=== PATIENT | female | born 1940 | race Caucasian/White ===

== ENCOUNTER 2020-07-15 10:28 | Observation (INO) | payer MEDICARE, SELFPAY ==
[2020-07-15] VITALS (10 sets, daily range): BP systolic 92–129; BP diastolic 44–78; PULSE 64–80; RESP 14–25; TEMP 36.6; O2SAT 95–100; BMI 31.8
--- NOTE | ~2020-07-15 | NM_ITS ---
EXAMINATION: NM peter stress w perfusion DATE: 07/16/2020 12:12 INDICATION: Angina TECHNIQUE: Rest images were obtained following intravenous administration of 9 mCi Tc99m tetrofosmin (Myoview). The patient was infused intravenously with Lexiscan (Regadenoson). Then, 28.5 mCi Tc99m te trofosmin (Myoview) was administered intravenously, and stress images were obtained. Data was reconst ructed into short axis and horizontal and vertical long axis SPECT images. Gated SPECT images were al so obtained. COMPARISON: None. FINDINGS: There is no definite reversible or fixed perfusion abnormality to suggest ischemia or infar ction. There is normal left ventricular chamber size, wall motion and ejection fraction. Left ventr icular ejection fraction measures >70%. IMPRESSION: 1. Normal myocardial perfusion at rest and during stress. 2. Left ventricular ejection fraction measuring >70%. Reviewed, dictated and finalized at location A.
--- NOTE | ~2020-07-15 | CT_ITS ---
EXAMINATION: CTA chest PE protocol DATE: 07/15/2020 11:21 INDICATION: Chest pain, shortness of breath TECHNIQUE: Computed tomography angiography (CTA) of the chest was performed with 100 mL Omnipaque-350 intravenous contrast timed to evaluate the pulmonary arteries. Coronal maximum intensity projection 3D-reconstructions were created by the technologist. Automated exposure control and iterative reconst ruction technique were employed. Exam dose: 344.57 mGy-cm total exam DLP. COMPARISON: None. FINDINGS: There is diagnostic contrast enhancement of the pulmonary arteries and no evidence of pulmo nary embolism. No thoracic aortic aneurysm. Normal heart size. Trace pericardial fluid. No pleural effusion. No hilar or mediastinal mass lesion or lymphadenopathy. Minimal left apical pulmonary scarring. There is a small area of tree-in-bud infiltrate in the posterolateral right upper lobe. Approximately 3 mm nodular density is noted in the middle lobe (series 4 image 62). The lungs are clear of infiltrate or consolidation otherwise. There is degenerative spurring of the thoracic spine. No suspicious osteolytic or osteoblastic lesion s. IMPRESSION: No evidence of pulmonary embolism Small focal tree-in-bud infiltrate in the right upper lobe and nonspecific 3 mm nodule in the middle lobe. Consider follow-up CT imaging in 6 months. Reviewed, dictated and finalized at Location [facility]. Reviewed, dictated and finalized at location A.
--- NOTE | ~2020-07-15 | XR_ITS ---
XR chest 2V DATE: 07/15/2020 11:11 INDICATION: Mid chest pain. Shortness of breath. TECHNIQUE: PA and lateral views COMPARISON: None FINDINGS: Normal heart size. No hilar or mediastinal enlargement. No pulmonary infiltrate or consolid ation, pleural effusion or pulmonary vascular congestion or pneumothorax. Degenerative changes and scoliosis of the thoracic and lumbar spine. Hardware of the lumbar spine is fairly included in the lower most aspect of the PA chest . Osteopenia. IMPRESSION: No active cardiopulmonary disease Reviewed, dictated and finalized at location A.
--- NOTE | 2020-07-15 10:33 | ECG_ITS ---
Measurements Intervals [place] Rate: 66 P: 37 WI: 143 QRS: -17 QRSD: 104 T: 8 QT: 368 QTc: 385 Interpretive Statements SINUS RHYTHM INCOMPLETE RIGHT BUNDLE BRANCH BLOCK LOW QRS VOLTAGE IN PRECORDIAL LEADS BORDERLINE R WAVE PROGRESSION, ANTERIOR LEADS BORDERLINE T WAVE ABNORMALITY- INFERIOR LEADS BASELINE ARTIFACT- I, II, AVR BORDERLINE ECG Electronically Signed On 07-15-2020 11:17:55 CDT by Tani De Jesus D.O.
--- NOTE | 2020-07-15 10:36 | ED.SOB ---
HPI - SOB/Dyspnea General Chief Complaint: Shortness of Breath/Dyspnea Stated Complaint: CP Time Seen by Provider: 07/15/20 10:36 Source: patient Mode of arrival: ambulatory Limitations: no limitations History of Present Illness HPI Narrative: Patient is a 80-year-old female with history of hypertension who presents from her primary care physician's office where she was evaluated this morning for pre-syncopal type symptoms. Patient has been feeling lightheaded, dizzy and having chest pain with exertion. She states that her chest pain can be related to any episode of exertion even if is just walking around her house. Several times when going to the grocery store she has become diaphoretic and short of breath with near syncope. Patient denies any loss of actual consciousness or syncopal events. No current chest pain while being examined. No history of cardiac problems other than hypertension and hyperlipidemia. Patient is a previous smoker, solely during her teenage years. Patient denies recent surgery, history of DVT, pleuritic chest pain. Related Data Home Medications Medication Instructions Recorded Confirmed atorvastatin 10 mg PO DAILY 07/15/20 cetirizine 5 mg PO DAILY 07/15/20 diclofenac sodium 25 mg PO BID 07/15/20 duloxetine 20 mg PO BID 07/15/20 Allergies Allergy/AdvReac Type Severity Reaction Status Date / Time morphine Allergy Nausea and Verified 07/15/20 10:39 Vomiting Review of Systems Review of Systems: Narrative: CONSTITUTIONAL: Denies fever, chills, reports feeling sweaty with exertion EYES: Denies visual changes, redness, or discharge. ENT: Denies rhinorrhea, congestion, sore throat, or otalgia. CARDIOVASCULAR: Denies chest pain, palpitations, or edema. RESPIRATORY: Denies cough, reports dyspnea with exertion GASTROINTESTINAL: Denies abdominal pain, nausea, vomiting, or diarrhea. GENITOURINARY: Denies dysuria or hematuria. SKIN: Denies rash or itching. MUSCULOSKELETAL: Denies back pain, joint pain, or myalgia. NEUROLOGIC: Denies headache, numbness, or weakness. [facility] Past Medical History Medical History Hyperlipidemia Hypertension Social History Social History (Updated 07/15/20 @ 11:09 by Marilou Alves MD) Smoking status: Former smoker Alcohol intake: never Substance use: never Gender identity (if verbalized by the patient): Female Exam Narrative: Exam Narrative: GENERAL: Awake, alert, conversant HEAD: Normocephalic, atraumatic. EYES: PERRLA and EOMI. ENT: Nares clear, no rhinorrhea or epistaxis. Mucous membranes moist. NECK: Supple. CHEST: No respiratory distress, breathing even and non labored, no chest wall tenderness HEART: Regular rate, sinus rhythm ABDOMEN:Non distended, non tender EXTREMITIES: Normal range of motion. No edema. SKIN: Warm, dry, no rash. NEURO:No focal deficits. Alert and oriented x3 Course Vital Signs Vital signs: Vital Signs Temperature 36.6 C 07/15/20 10:34 Pulse Rate 64 07/15/20 10:34 Respiratory Rate 25 H 07/15/20 10:34 Blood Pressure 128/74 07/15/20 10:34 Pulse Oximetry 99 07/15/20 10:34 Temperature 36.6 C 07/15/20 10:34 Pulse Rate 68 07/15/20 12:16 Respiratory Rate 18 07/15/20 12:16 Blood Pressure 118/59 L 07/15/20 12:16 Pulse Oximetry 100 07/15/20 12:16 MDM - SOB/Dyspnea MDM Narrative Medical decision making narrative: Patient presented for evaluation of dyspnea with exertion, diaphoresis, intermittent chest pain from her primary care physician's office. At the time of initial assessment, ABCs are intact and vital signs are stable. Physical exam unremarkable. No chest pain or dyspnea in the ED. Patient without any lower extremity edema, no murmur found on auscultation of the heart, no focal lung findings. Laboratory results also reassuring. No elevation in troponin. Patient does not have clinical findings or symptoms of congestive
[2020-07-15 10:50] LABS: Basophils Absolute Auto 0.1 K/mm3 (0.0-0.1); Basophils Percent Auto 0.8 % (0.2-1.2); Eosinophils Absolute Auto 0.5 K/mm3 (0-0.3); Eosinophils Percent Auto 7.2 % (0-4.4); Hematocrit 39.9 % (37.0-47.0); Hemoglobin 12.5 g/dL (12.0-15.0); Immature Granulocyte Absolute 0.07 K/mm3 (0.00-0.031); Lymphocytes Absolute Auto 2.24 K/mm3 (0.9-3.2); Mean Corpuscular HGB Conc 31.3 g/dl (32-36); Mean Corpuscular Hemoglobin 28.9 pg (26-34); Mean Corpuscular Volume 92.4 fl (80-100); Monocytes Absolute Auto 0.4 K/mm3 (0.1-0.6); Monocytes Percent Auto 5.1 % (2.6-8.5); Neutrophils Percent Auto 54.9 % (45.5-73.1); Platelet Count Result 239 k/mm3 (150-375); Red Blood Count 4.32 M/mm3 (4.2-5.4); Red Cell Distribution Width 13.4 % (11.5-14.5); White Blood Count 7.2 K/mm3 (4.5-10.0)
[2020-07-15 10:59] LABS: INR 0.9; Prothrombin Time 12.3 Seconds (11.1-14.7)
[2020-07-15 11:04] LABS: Anion Gap 5 mmol/L (8-16); Blood Urea Nitrogen 24 mg/dL (7-17); Calcium 9.7 mg/dL (8.4-10.2); Carbon Dioxide 27 mmol/L (22-30); Chloride 106 mmol/L (98-107); Estimated CRCL calculation 31 ml/min; Estimated Glomerular Filt Rate 40; Glucose 97 mg/dL (65-105); Potassium 4.5 mmol/L (3.4-5.0); Sodium 138 mmol/L (137-145)
--- NOTE | 2020-07-15 11:04 | PC.NURSE ---
REPORT TO RYANNE MONET AT THIS TIME, HE HAS ASSUMED PT CARE.
[2020-07-15] MEDS: ASPIRIN 81 MG CHEWABLE TABLET 324 MG PO (11:06)
[2020-07-15 11:16] LABS: Troponin I < 0.012 ng/mL (0.000-0.034)
[2020-07-15 13:10] LABS: Cholesterol 203 mg/dL (0-200); HDL Direct 45 mg/dL; Triglycerides 200 mg/dL (<150)
[2020-07-15 13:20] LABS: LDL Cholesterol Direct 108 mg/dL
[2020-07-15 14:09] LABS: Troponin I < 0.012 ng/mL (0.000-0.034)
--- NOTE | 2020-07-15 15:27 | ADMGEN ---
This patient, Holly Mei, was admitted to [facility]. Patient/family oriented to hospital policies and general routines including ID bracelet, bed and alarms, visiting hours, pain management, procedures, bathroom and other care routines, personal items, smoking policy, room service/diet, and visiting hours. Valuables list has been completed. Information on how to activate the Rapid Response Team has been discussed. Patient/Family are encouraged to report perceived risks to care and to ask questions if they do not understand what they are told or what they should do.
--- NOTE | 2020-07-15 15:27 | PM.IMHP ---
H&P: HPI History of Present Illness Date/Time: 07/15/20 15:27 80 years old lady with history of hypertension, and history of dyslipidemia, came to the hospital because of worsening shortness breath and chest pain. She stated that she had been having worsening shortness breath, and chest pain. She stated that every time she walks she gets heaviness in the chest with radiation to the back and occasional radiation to the throat, and with that she get diaphoretic and she gets significant shortness of breath. When she has stops and rests it all improved. She was seen by primary care physician who appropriately directed her to come to the hospital. Upon arrival to the hospital she is not having any active pain at this time but she stated she is feeling weak. So far EKG is unremarkable, and cardiac enzymes are negative. No known history of documented coronary disease, but she seems to have stable angina with slightly worsening symptoms lately Chief complaint: CP Narrative: Holly Mei is a 80 year old female Review of Systems Constitutional: Constitutional: Reports fatigue Cardiovascular: Cardiovascular: Reports as per HPI Respiratory: Respiratory: Reports dyspnea and Reports dyspnea on exertion Gastrointestinal: Gastrointestinal: Denies nausea and Denies vomiting [facility] Past Medical History Medical History Hyperlipidemia Hypertension Social History Social History (Updated 07/15/20 @ 11:09 by Marilou Alves MD) Smoking status: Former smoker Alcohol intake: never Substance use: never Gender identity (if verbalized by the patient): Female Meds Home Medications and Allergies Home Medications Medication Instructions Recorded Confirmed Type atorvastatin 20 mg PO HS 07/15/20 07/15/20 History cetirizine 10 mg PO DAILY 07/15/20 07/15/20 History diclofenac sodium 100 mg PO BID 07/15/20 07/15/20 History duloxetine 30 mg PO QPM 07/15/20 07/15/20 History duloxetine 60 mg PO QAM 07/15/20 07/15/20 History lisinopril 10 mg PO DAILY 07/15/20 07/15/20 History omeprazole 20 mg PO DAILY 07/15/20 07/15/20 History Allergies Allergy/AdvReac Type Severity Reaction Status Date / Time morphine Allergy Nausea and Verified 07/15/20 10:39 Vomiting Vital Signs Vital Signs - 24 hr 07/15/20 10:34 07/15/20 10:38 07/15/20 11:01 Temperature 36.6 C Pulse Rate 64 64 Respiratory Rate 25 H 16 Blood Pressure 128/74 128/74 Pulse Oximetry 99 99 99 07/15/20 12:16 07/15/20 13:43 07/15/20 14:52 Temperature 36.6 C Pulse Rate 68 80 78 Respiratory Rate 18 18 18 Blood Pressure 118/59 L 106/78 110/74 Pulse Oximetry 100 98 99 Exam Narrative: Exam Narrative: Awake alert oriented x3 not in acute distress Neck is supple no obvious JVD, no carotid bruit Chest: Good air entry bilaterally, lungs are clear to auscultation and percussion bilaterally Cardiovascular: Regular rate and rhythm, 2/6 systolic murmur noted left sternal border Abdomen: Soft nontender bowel sounds positive Extremities: No edema has good pulses distally bilaterally H&P: Results Labs Labs: Short CBC 07/15/20 Range/Units 10:40 WBC 7.2 (4.5-10.0) K/mm3 Hgb 12.5 (12.0-15.0) g/dL Hct 39.9 (37.0-47.0) % Plt Count 239 (150-375) k/mm3 BMP 07/15/20 10:40 Sodium 138 Potassium 4.5 Chloride 106 Carbon Dioxide 27 BUN 24 H Creatinine 1.30 H Glucose 97 Calcium 9.7 Cardiac Enzymes 07/15/20 07/15/20 Range/Units 10:40 13:38 Troponin I < 0.012 < 0.012 (0.000-0.034) ng/mL Assessment and Plan Assessment and plan (1) AGUILAR (dyspnea on exertion): Code(s): R06.00 - Dyspnea, unspecified Status: Acute Assessment and Plan: with symptoms suggestive of unstable angina, agree with admitted to the hospital, follow-up cardiac enzymes and EKGs, will proceed with stress test in the morning if she had no recurrence of chest pain
--- NOTE | 2020-07-15 16:15 | ECG_ITS ---
Measurements Intervals [place] Rate: 72 P: 41 FL: 156 QRS: -12 QRSD: 104 T: 5 QT: 379 QTc: 417 Interpretive Statements SINUS RHYTHM INCOMPLETE RIGHT BUNDLE BRANCH BLOCK BORDERLINE R WAVE PROGRESSION, ANTERIOR LEADS BORDERLINE T WAVE ABNORMALITY- ANT/INF LEADS BORDERLINE ECG Electronically Signed On 07-15-2020 17:18:30 CDT by Tani De Jesus D.O.
[2020-07-15 16:50] LABS: Troponin I < 0.012 ng/mL (0.000-0.034)
[2020-07-15] MEDS: ATORVASTATIN 20 MG TABLET PO (19:19)
[2020-07-15] MEDS: DULoxetine HCL 30 MG CAPSULE.DR PO (19:19)
[2020-07-15] MEDS: DICLOFENAC SOD 75 MG TABLET.EC PO (19:58)
[2020-07-16] VITALS: BP 98/47; PULSE 67; PULSE 69; RESP 18; TEMP 36.8; O2SAT 96
--- NOTE | 2020-07-16 | ECHO_ITS ---
Patient Info Name: Holly Mei Age: 80 years : 1940 Gender: Female Ht: 62 in Wt: 174 lbs BSA: 1.89 m2 HR: 65 bpm BP: 101 / 64 mmHg Technical Quality: Fair Exam Date: 07/16/2020 7:47 AM Exam Location: [facility] Pulmonary Patient Status: Inpatient Admit Date: 07/15/2020 Staff Ordering Physician: Marilou Alves MD Babbitt Spinner: Tracy Serrano RDCS Attending Provider: Fernando Isbell MD Referring Physician: Joselyn HUITRON; Exam Type: CA echo doppler color flow Study Info Indications R07.89 - Other chest pain R06.09 - Other forms of dyspnea Complete two-dimensional, color flow and Doppler transthoracic echocardiogram is performed. Summary 1. Complete two-dimensional, color flow and Doppler transthoracic echocardiogram is performed. 2. Left ventricular chamber dimension is normal. 3. Left ventricular systolic function is normal with an estimated ejection fraction of 5560.0 %. 4. There is mild tricuspid valve regurgitation. 5. There is moderate aortic valve sclerosis. 6. There is trace aortic valve regurgitation. 7. Grade I diastolic dysfunction of the left ventricle (impaired relaxation pattern). 8. Technically difficult study with limited views. Left Ventricle Left ventricular chamber dimension is normal. Left ventricular systolic function is normal with an estimated ejection fraction of 5560.0 %. Grade I diastolic dysfunction of the left ventricle (impaired relaxation pattern). Left ventricular chamber dimension is normal. Left Atria Left atrial chamber dimension is normal. Left atrial chamber dimension is normal. Right Atria Right atrial chamber dimension is normal. Right atrial chamber dimension is normal. Aortic Valve Aortic valve is not well visualized. There is moderate aortic valve sclerosis. There is trace aortic valve regurgitation. There is moderate aortic valve sclerosis. There is trace aortic valve regurgitation. Mitral Valve Mitral valve is structurally and functionally normal to two-dimensional, color flow Doppler and Doppler interrogation. Tricuspid Valve There is mild tricuspid valve regurgitation. There is mild tricuspid valve regurgitation. Left Ventricular Outflow Tract Name Value Normal LVOT 2D LVOT Diameter 2.0 cm LVOT Doppler LVOT Peak Gradient 5 mmHg LVOT Mean Gradient 2 mmHg LVOT VTI 23 cm LVOT VTI/AV VTI Ratio 0.6 LVOT Stroke Volume 73 ml LVOT CO 5.0 l/min LVOT CI 2.6 l/min/m2 Pulmonic Valve Name Value Normal RVOT Doppler RVOT Peak Gradient 2 mmHg PV Doppler PV Peak Gradient
--- NOTE | 2020-07-16 | EST_ITS ---
Patient Info Name: Holly Mei Age: 80 years : 1940 Gender: Female Ht: 62 in Wt: 174 lbs BSA: 1.89 m2 Exam Date: 07/16/2020 10:40 AM Exam Location: [facility] Stress Patient Status: Inpatient Admit Date: 07/15/2020 Staff Ordering Physician: Fernando Isbell MD Attending Provider: Fernando Isbell MD Exercise Technologist: Tracy Serrano RDCS Exercise Physician: Jr Boyd MD Exam Type: CA stress peter w NM Study Info A regadenoson stress test was performed. Summary 1. No abnormal ST-T wave changes with lexiscan. 2. Nuclear test results to follow. Protocol: Lexiscan Stress ECG Details Stage: REST Duration (min): 0 min : 53 sec HR (bpm): 69 SBP (mmHg): 122 DBP (mmHg): 65 Stage: REST Duration (min): 9 min : 9 sec HR (bpm): 73 SBP (mmHg): 122 DBP (mmHg): 65 Stage: STAGE 1 Duration (min): 1 min : 0 sec HR (bpm): 101 SBP (mmHg): 121 DBP (mmHg): 87 Stage: RECOVERY Duration (min): 1 min : 0 sec HR (bpm): 107 SBP (mmHg): 118 DBP (mmHg): 82 Stage: RECOVERY Duration (min): 2 min : 0 sec HR (bpm): 99 SBP (mmHg): 118 DBP (mmHg): 82 Stage: RECOVERY Duration (min): 3 min : 0 sec HR (bpm): 103 SBP (mmHg): 126 DBP (mmHg): 81 Stage: RECOVERY Duration (min): 4 min : 0 sec HR (bpm): 105 SBP (mmHg): 126 DBP (mmHg): 81 Stage: RECOVERY Duration (min): 5 min : 0 sec HR (bpm): 103 SBP (mmHg): 140 DBP (mmHg): 77 Stage: RECOVERY Duration (min): 6 min : 0 sec HR (bpm): 100 SBP (mmHg): 140 DBP (mmHg): 77 Stage: RECOVERY Duration (min): 6 min : 40 sec HR (bpm): 92 SBP (mmHg): 127 DBP (mmHg): 77 Rest HR: 73 bpm Peak HR: 109 bpm Rest Sys BP: 122 mmHg Peak Sys BP: 140 mmHg Max Pred HR: 142 bpm % Max Pred HR: 77 % Target HR: 121 bpm Max RPP: 15,260 bpm*mmHg Total Time: 1 min : 0 sec Rest Pineda BP: 65 mmHg Peak Pineda BP: 77 mmHg Total Dose: 0.4 mg Report Signatures
[2020-07-16 04:00] VITALS: BP 122/53; PULSE 69; PULSE 75; RESP 14; TEMP 36.1; O2SAT 98
--- NOTE | 2020-07-16 07:48 | PC.NURSE ---
ECHO IN PROGRESS BEDSIDE.
[2020-07-16] MEDS: LORATADINE 10 MG TABLET PO (07:50)
[2020-07-16] MEDS: PANTOPRAZOLE 40 MG TABLET PO (07:50)
[2020-07-16] MEDS: ASPIRIN 81 MG CHEWABLE TABLET PO (07:51)
[2020-07-16 08:00] VITALS: BP 101/64; PULSE 72; RESP 16; TEMP 36.7; O2SAT 97
--- NOTE | 2020-07-16 09:50 | PC.NURSE ---
DOWN FOR STRESS TEST VIA WC. VOICES NO C/O.
--- NOTE | 2020-07-16 12:35 | PC.NURSE ---
RESULTS OF STRESS TEST CALLED TO DR. RODRIGEZ. PLAN DISCHARGE HOME. PT. CAN EAT.
--- NOTE | 2020-07-16 12:35 | PM.DS ---
DS: Admitting Diagnosis Admitting Diagnosis Admitting Diagnosis: chest pain,dyspnea with exertion DS: Summary Time Spent with Patient Time attestation: 80 years old WF with history of hypertension, and history of dyslipidemia, came to the hospital because of worsening shortness breath and chest pain. She stated that she had been having worsening shortness breath and chest discomfort on/off for the last 10 days. She stated that every time she walks she gets heaviness in the chest with radiation to the back and occasional radiation to the throat, and with that she get diaphoretic and she gets significant shortness of breath. She denies fever or cough. She was seen by primary care physician who directed her to come to the hospital. Pt was admitted for observation. CE were negative and there were no acute EKG changes. Pt underwent nuclear stress test which showed normal perfusion. ECHO showed normal LV systolic function. Pt aopears stable from cardiac standpoint. She will de dc with fu with her PC and in our clinic. Total time spent providing and/or coordinating discharge services: 30 min. Exam Const: General: alert and awake; No acute distress HENMT: Head: normal to inspection and atraumatic Ears: hearing grossly normal bilaterally Face and sinus: normal facial exam Eyes: General: appearance normal, both eyes and all related structures Pupils: Equal, round and reactive pupils present EOM: EOMs intact bilaterally Neck: Neck: normal visual inspection and no JVD Chest: Chest palpation & inspection: normal inspection of the chest Resp: Effort & Inspection: normal respiratory effort and no respiratory distress Auscultation: clear to auscultation bilaterally Cardio: Jugular venous distension: no JVD Rate: regular rate Heart sounds: S1 normal heart sound present, S2 normal heart sound present and no murmurs GI: Inspection: normal to inspection GI Palp: Yes Soft to palpation, No Tenderness to palpation present (GI) and Yes No hepatosplenomegaly present Auscultation: normal bowel sounds Skin: General skin exam: normal color Neuro: Cranial nerves: Yes Equal, round and reactive pupils present Extrem: General: normal to inspection and no clubbing, cyanosis or edema DS: Data Data Completed and Pending Labs on day of discharge: Labs from last 24 hours 07/15/20 07/15/20 07/15/20 16:22 13:38 10:40 Troponin I < 0.012 < 0.012 Triglycerides 200 H Cholesterol 203 H LDL Cholesterol Direct 108 HDL Direct 45 Discharge Plan Discharge Attending physician on discharge: Fernando Isbell Discharging Clinician: Jr Boyd Anticipated Discharge Date/Time: 07/16/20 12:44 Patient Disposition: Home, Self-Care Activity: as tolerated Diet: as tolerated Patient Instructions: Antibiotic Form Stand Alone Forms: General Discharge Information Follow-up/Referrals: Selvin,MD Hollis [Primary Care Provider] - 2 Weeks Fernando Isbell MD [Physician] - 4 Weeks Discharge Medications: Continued atorvastatin 20 mg Tablet 20 mg PO HS RF: 0 diclofenac sodium 100 mg Tablet Extended Release 24 Hr 100 mg PO BID RF: 0 lisinopril 10 mg Tablet 10 mg PO DAILY RF: 0 omeprazole 20 mg Capsule,Delayed Release(Dr/Ec) 20 mg PO DAILY RF: 0 duloxetine 30 mg Capsule,Delayed Release(Dr/Ec) 30 mg PO QPM RF: 0 duloxetine 60 mg Capsule,Delayed Release(Dr/Ec) 60 mg PO QAM RF: 0 cetirizine 10 mg Capsule 10 mg PO DAILY RF: 0 Date of admission: 07/15/20 12:14 Primary Care Provider: SelvinHollis Admitting Provider: Fernando Isbell Attending physician on admission: Fernando Isbell Condition: Stable
[2020-07-16 12:40] VITALS: BP 115/60; PULSE 73; PULSE 75; RESP 14; TEMP 36.9; O2SAT 97
[2020-07-16] MEDS: DULoxetine HCL 60 MG CAPSULE.DR PO (13:59)
[2020-07-16] MEDS: DICLOFENAC SOD 75 MG TABLET.EC PO (13:59)
[2020-07-16] MEDS: lisinopriL 10 MG TABLET PO (14:00)
--- NOTE | 2020-07-16 14:20 | PC.NURSE ---
HAVE REVIEWED ALL DISCHARGE INSTRUCTIONS W/ PT. QUESTIONS ANSWERED. VOICED UNDERSTAIND. IV SITE IS OUT AND DRESSED. DRESSED FOR DISCHARGE HOME. DISCHARGED HOME, OUT VIA WC TO FRIEND'S WAITING CAR WITH ALL PERSONAL BELONGINGS AND DISCHARGE PACKET. VOICES NO C/O.
== END 2020-07-16 14:20 | disposition home or self-care (01) ==
LOC: ANHED 12:48 → ANHCPC 15:37
PROVIDERS: Admitting Provider Specialist; Emergency Provider Emergency Medicine; PCP Internal Medicine; Visit Provider Specialist
DX: R07.9 Chest pain, unspecified (principal); R06.00 Dyspnea, unspecified; R06.02 Shortness of breath; R42 Dizziness and giddiness; I10 Essential (primary) hypertension; E78.5 Hyperlipidemia, unspecified; Z87.891 Personal history of nicotine dependence
CPT/HCPCS: 36415; 71046; 71275; 78452; 80048; 80061; 84484; 85025; 85610; 85730; 93005; 93017; 93306; 99285; A9270; A9502; G0378; J2785; Q9967

== ENCOUNTER 2022-01-04 14:34 | Observation (INO) | payer MEDICARE, SELFPAY ==
[2022-01-04] VITALS (42 sets, daily range): BP systolic 118–160; BP diastolic 57–97; PULSE 68–91; RESP 11–27; TEMP 36.6–36.8; O2SAT 93–100; BMI 28.2
--- NOTE | ~2022-01-04 | XR_ITS ---
EXAMINATION: XR chest 2V 01/04/2022 15:07 INDICATION: Chest pain PROCEDURE: 2 view chest COMPARISON: 07/15/2020 FINDINGS: The lungs are clear. The cardiomediastinal silhouette is within normal limits. There are no pleural effusions. There is no pneumothorax suspected. IMPRESSION: 1: NO ACUTE CARDIOPULMONARY DISEASE. Reviewed, dictated and finalized at location A. [employer]
--- NOTE | 2022-01-04 14:35 | ECG_ITS ---
Measurements Intervals [place] Rate: 91 P: 18 NE: 155 QRS: -22 QRSD: 91 T: 22 QT: 334 QTc: 412 Interpretive Statements SINUS RHYTHM LOW QRS VOLTAGE IN PRECORDIAL LEADS [QRS DEFLECTION < 1.0 mV IN CHEST LEADS] POSSIBLE ANTERIOR MYOCARDIAL INFARCTION , PROBABLY OLD [30 ms Q WAVE IN V3/V4, OR R < 0.2 mV IN V4] ABNORMAL ECG COMPARED TO ECG 07/15/2020 16:27:26 NO SIGNIFICANT CHANGES Electronically Signed On 01-04-2022 16:04:44 [employer] by Andrés Ferraro M.D.
[2022-01-04 15:03] LABS: Basophils Absolute Auto 0.1 K/mm3 (0.0-0.1); Basophils Percent Auto 0.7 % (0.2-1.2); Eosinophils Absolute Auto 0.3 K/mm3 (0-0.3); Eosinophils Percent Auto 3.6 % (0-4.4); Hematocrit 34.9 % (37.0-47.0); Hemoglobin 11.1 g/dL (12.0-15.0); Immature Granulocyte Absolute 0.02 K/mm3 (0.00-0.031); Immature Granulocyte Percent A 0.2 % (0-0.5); Lymphocytes Absolute Auto 2.43 K/mm3 (0.9-3.2); Lymphocytes Percent Auto 28.3 % (18.3-44.2); Mean Corpuscular HGB Conc 31.8 g/dl (32-36); Mean Corpuscular Hemoglobin 27.4 pg (26-34); Mean Corpuscular Volume 86.2 fl (80-100); Mean Platelet Volume 12.3 fl (7.4-10.4); Monocytes Absolute Auto 0.5 K/mm3 (0.1-0.6); Monocytes Percent Auto 5.9 % (2.6-8.5); Neutrophils Absolute Auto 5.3 K/mm3 (1.3-6.7); Neutrophils Percent Auto 61.3 % (45.5-73.1); Platelet Count Result 262 k/mm3 (150-375); Red Blood Count 4.05 M/mm3 (4.2-5.4); White Blood Count 8.6 K/mm3 (4.5-10.0)
[2022-01-04 15:14] LABS: INR 0.9; Prothrombin Time 12.2 Seconds (11.1-14.7)
[2022-01-04 15:15] LABS: Partial Thromboplastin Time 28.6 SECONDS (22.3-36.8)
[2022-01-04 15:21] LABS: Alanine Aminotransferase 21 U/L (4-35); Albumin Level 4.3 g/dL (3.5-5.1); Alkaline Phosphatase 95 U/L (38-126); Anion Gap 10 mmol/L (8-16); Aspartate Amino Transferase 34 U/L (14-36); Bilirubin,Total 0.5 mg/dL (0.2-1.3); Blood Urea Nitrogen 19 mg/dL (7-17); Calcium 10.1 mg/dL (8.4-10.2); Carbon Dioxide 22 mmol/L (22-30); Chloride 108 mmol/L (98-107); Estimated CRCL calculation 37 ml/min; Estimated Glomerular Filt Rate 53; Glucose 89 mg/dL (65-110); Lipase 128 U/L (23-300); Potassium 4.3 mmol/L (3.4-5.0); Sodium 140 mmol/L (137-145)
[2022-01-04] MEDS: ASPIRIN 81 MG CHEWABLE TABLET 324 MG PO (15:28)
[2022-01-04 15:33] LABS: Troponin I < 0.012 ng/mL (0.000-0.034)
--- NOTE | 2022-01-04 15:44 | PC.NURSE ---
Pt received 2 doses of nitro
[2022-01-04] MEDS: NITROGLYCERIN SL 0.4 MG TABLET SUBLINGUAL (16:39)
--- NOTE | 2022-01-04 18:07 | ED.CHESTPAIN ---
HPI - Chest Pain General Chief Complaint: Chest Pain Stated Complaint: REFLUX VS HEART ATTACK Time Seen by Provider: 01/04/22 15:14 History of Present Illness HPI narrative: Patient is a 81-year-old female who presents ER with chest pain and acid reflux. Ongoing over the last day. Kept her up all night and could not sleep. No bad taste in the back of her mouth. Unsure if it is worsened by lying down. Initial onset was while she was performing housework to help another individual. She reports she was vacuuming and doing other cleaning when the symptoms started. Has seen cardiology in the past and told she has a component of heart disease but she has not had any stents. No fevers or chills or sweats. Has not taken any pain medication. Patient reports when she had the chest discomfort earlier she had discomfort in her left arm. She also reports she had some mild shortness of breath and sweats. She does not have the symptoms at this time but still maintains that she is having chest pain. Related Data Home Medications Medication Instructions Recorded Confirmed atorvastatin 20 mg PO HS 07/15/20 07/15/20 cetirizine 10 mg PO DAILY 07/15/20 07/15/20 diclofenac sodium 100 mg PO BID 07/15/20 07/15/20 duloxetine 30 mg PO QPM 07/15/20 07/15/20 duloxetine 60 mg PO QAM 07/15/20 07/15/20 lisinopril 10 mg PO DAILY 07/15/20 07/15/20 omeprazole 20 mg PO DAILY 07/15/20 07/15/20 Allergies Allergy/AdvReac Type Severity Reaction Status Date / Time morphine Allergy Nausea and Verified 07/15/20 10:39 Vomiting Review of Systems Review of Systems: All systems reviewed & are unremarkable except as noted in HPI and below Constitutional: Constitutional: Denies chills, Denies fever(s) and Denies weakness ENT: Denies nasal congestion and Denies sore throat Cardiovascular: Cardiovascular: Reports chest pain, Denies rapid heart rate and Reports radiating jaw, neck or arm pain Respiratory: Respiratory: Denies cough, Denies dyspnea and Denies wheezing Gastrointestinal: Gastrointestinal: Denies abdominal pain, Reports heartburn, Reports nausea and Denies vomiting Musculoskeletal: Musculoskeletal: Denies back pain and Denies muscle cramps [facility] Past Medical History Medical History (Updated 01/04/22 @ 21:31 by Pedro Pablo Baez MD) Hyperlipidemia Hypertension Family History Family History (Updated 07/15/20 @ 15:56 by Juan Coronel RN) Sibling Acute myocardial infarction Sibling Pacemaker Social History Social History (Updated 07/15/20 @ 11:09 by Marilou Alves MD) Smoking status: Never smoker Second hand tobacco smoke exposure: Yes Alcohol intake: never Substance use: never Gender identity (if verbalized by the patient): Female Spiritual care concerns: No Exam Narrative: GENERAL: Well-appearing, well-nourished, and in no acute distress. HEAD: Normocephalic, atraumatic. EYES: PERRL and EOMI. CHEST: Clear to auscultation. No respiratory distress. HEART: Regular rate and rhythm. Normal peripheral pulses. ABDOMEN: Soft, nontender, nondistended. EXTREMITIES: Normal range of motion. No edema. SKIN: Warm, dry, no rash. NEURO: Alert and oriented x3. PSYCH: Normal mood and affect. Course Course Emergency Course: Chest pain improved with nitroglycerin but then returned. Admit for observation and serial troponin testing. Also give Pepcid. Vital Signs Vital signs: Vital Signs Temperature 97.9 F 01/04/22 14:43 Pulse Rate 90 01/04/22 14:43 Respiratory Rate 16 01/04/22 14:43 Blood Pressure 140/72 01/04/22 14:43 Pulse Oximetry 99 01/04/22 14:43 Temperature 97.9 F 01/04/22 21:30 Pulse Rate 78 01/04/22 21:30 Respiratory Rate 18 01/04/22 21:30 Blood Pressure 149/69 H 01/04/22 21:30 Pulse Oximetry 98 01/04/22 21:30 MDM - Chest Pain Lab Data Result diagrams: 01/04/22 14:58 01/04/22 14:58 Labs: Lab Results 01/04/22
[2022-01-04 18:42] LABS: Troponin I < 0.012 ng/mL (0.000-0.034)
--- NOTE | 2022-01-04 19:52 | PM.IMHP ---
H&P: HPI History of Present Illness Date/Time: 01/04/22 19:52 Chief Complaint: Chest pain. Narrative: This is a 81-year-old female with past medical history significant for dyslipidemia, depression, hypertension, GERD. Patient presents to the emergency room due to chest pain that has been present for the last 2 days or so patient raises at 5/10 in intensity is like burning pain is in the retrosternal area is non radiating to the jaw 0 shoulder or arm. Patient denies any nausea ,any vomiting,no diarrhea ,any cough, any sputum production, shortness of breath, fevers, rigors, chills, no syncope, no near syncope, no dizziness ,no palpitations, no PND, no orthopnea, no leg swelling. Preliminary workup has been essentially nonrevealing. Patient is been admitted for further evaluation, management and treatment. Review of Systems Review of Systems: Retrosternal chest pain. Constitutional: Constitutional: Denies chills, Denies fatigue, Denies fever(s), Denies malaise, Denies night sweats and Denies weakness Eyes: Eyes: Denies change in vision ENT: Denies dysphagia, Denies vertigo, Denies dizziness, Denies nasal congestion, Denies nasal discharge, Denies nasal obstruction and Denies odynophagia Cardiovascular: Cardiovascular: Reports chest pain at rest, Denies irregular heart rhythm, Denies leg edema, Denies lightheadedness, Denies radiating jaw, neck or arm pain, Denies palpitations, Denies dyspnea, Denies dyspnea on exertion, Denies orthopnea, Denies paroxysmal nocturnal dyspnea and Denies slow heart rate Respiratory: Respiratory: Denies chest congestion, Denies cough, Denies dyspnea and Denies wheezing Gastrointestinal: Gastrointestinal: Denies abdominal pain, Denies belching, Denies dyspepsia, Reports heartburn, Denies diarrhea, Reports nausea, Denies odynophagia and Denies vomiting Genitourinary: Genitourinary: Denies dysuria Musculoskeletal: Musculoskeletal: Denies myalgias Integumentary/Breasts: Skin/Breast: Denies rash Neurologic: Denies vertigo, Denies dizziness, Denies focal weakness and Denies Sensory deficit (Neuro) Psychiatric: Psychiatric: Reports no additional psychiatric complaints and Reports as per HPI Endocrine: Endocrine: Denies cold intolerance, Denies excessive sweating, Denies fatigue, Denies flushing, Denies heat intolerance, Denies polyphagia, Denies polydipsia, Denies polyuria and Denies palpitations Hematologic/Lymphatic: Hematologic/Lymphatic: Reports no additional hematologic/lymphatic complaints and Reports as per HPI Allergic/Immunologic: Allergic/Immunologic: Reports no additional allergic/immunologic complaints and Reports as per HPI PMFSH Past Medical History Medical History (Updated 01/05/22 @ 02:43 by Lala Griffith MD) Hyperlipidemia Hypertension Family History Family History (Updated 01/04/22 @ 22:11 by Cortney Cohen RN) Sibling Acute myocardial infarction Sibling No problems noted. Mother Breast cancer Bone cancer Father Alcoholic Social History Social History (Updated 07/15/20 @ 11:09 by Marilou Alves MD) Years smoked: 10 Smoking status: Former smoker Tobacco type: cigarettes Smoking end date: 01/03/75 Alcohol intake: current Drinks per week: 2 Substance use: never Gender identity (if verbalized by the patient): Female Spiritual care concerns: No Meds Home Medications and Allergies Home Medications Medication Instructions Recorded Confirmed Type atorvastatin 20 mg PO HS 07/15/20 07/15/20 History cetirizine 10 mg PO DAILY 07/15/20 07/15/20 History diclofenac sodium 100 mg PO BID 07/15/20 07/15/20 History duloxetine 30 mg PO QPM 07/15/20 07/15/20 History duloxetine 60 mg PO QAM 07/15/20 07/15/20 History lisinopril 10 mg PO DAILY 07/15/20 07/15/20 History omeprazole 20 mg PO DAILY 07/15/20 07/15/20 History Allergies Allergy/AdvReac Type Severity Reaction Status Date / Time morphine Allergy Nausea and Verified 07/15/20 10:39
[2022-01-04 21:38] LABS: Troponin I 0.013 ng/mL (0.000-0.034)
--- NOTE | 2022-01-04 21:59 | ADMGEN ---
This patient, Holly Mei, was admitted to IMU Room 205-01. Patient/family oriented to hospital policies and general routines including ID bracelet, bed and alarms, visiting hours, pain management, procedures, bathroom and other care routines, personal items, smoking policy, room service/diet, and visiting hours. Information on how to activate the Rapid Response Team has been discussed. Patient/Family are encouraged to report perceived risks to care and to ask questions if they do not understand what they are told or what they should do.
[2022-01-04] MEDS: FAMOTIDINE 20 MG/2 ML VIAL IV PUSH (22:24)
[2022-01-05] VITALS (17 sets, daily range): BP systolic 118–157; BP diastolic 56–87; PULSE 70–109; RESP 16–20; TEMP 35.6–36.7; O2SAT 93–97
--- NOTE | 2022-01-05 | ECHO_ITS ---
Patient Info Name: Holly Mei Age: 81 years : 1940 Gender: Female Ht: 61 in Wt: 148 lbs BSA: 1.72 m2 HR: 93 bpm BP: 144 / 74 mmHg Heart Rhythm: Sinus Rhythm Technical Quality: Good Exam Date: 01/05/2022 1:43 PM Exam Location: [facility] Pulmonary Patient Status: Outpatient Admit Date: 01/04/2022 Staff Ordering Physician: Sol Hernandez Remittance Clerk: Tracy Serrano RDCS Attending Provider: Sol Hernandez Referring Physician: Mary THOMSON; Exam Type: CA echo doppler color flow Study Info Indications R07.9 - Chest pain, unspecified Complete two-dimensional, color flow and Doppler transthoracic echocardiogram is performed. Summary 1. Complete two-dimensional, color flow and Doppler transthoracic echocardiogram is performed. 2. Left ventricular chamber dimension is normal. 3. Left ventricular systolic function is normal, estimated at 60-65%. 4. There is no increased left ventricular wall thickness. 5. The left ventricular diastolic function is grade I diastolic dysfunction. 6. Left atrial chamber dimension is mildly enlarged. 7. There is mild to moderate aortic valve stenosis with a peak velocity of 279 cm/s, mean gradient of 16 mmHg, and aortic valve area of 1.4 cm2. 8. There is mild to moderate aortic valve regurgitation. 9. There is mild mitral valve regurgitation. 10. There is mild tricuspid valve regurgitation. 11. Moderate pulmonary hypertension, estimated pulmonary arterial systolic pressure is 50 mmHg. Left Ventricle Left ventricular chamber dimension is normal. Left ventricular systolic function is normal, estimated at 60-65%. There is no increased left ventricular wall thickness. The left ventricular diastolic function is grade I diastolic dysfunction. Right Ventricle Right ventricular chamber dimension is normal. Right ventricular systolic function is normal. Left Atria Left atrial chamber dimension is mildly enlarged. Right Atria Right atrial chamber dimension is normal. Atrial Septum Intact interatrial septum visualized by color flow imaging. Aortic Valve The aortic valve is trileaflet. There is mild to moderate aortic valve stenosis with a peak velocity of 279 cm/s, mean gradient of 16 mmHg, and aortic valve area of 1.4 cm2. There is mild to moderate aortic valve regurgitation. There is moderate aortic valve calcification. Pulmonic Valve The pulmonic valve is normal. There is no pulmonic valve stenosis. There is trace pulmonic regurgitation. Mitral Valve The mitral valve has normal leaflets. There is no mitral valve stenosis. There is mild mitral valve regurgitation. Tricuspid Valve The tricuspid valve leaflets are normal. There is no significant tricuspid valve stenosis. There is mild tricuspid valve regurgitation. Moderate pulmonary hypertension, estimated pulmonary arterial systolic pressure is 50 mmHg. Pericardium/Pleural The pericardium appears normal. There is trivial pericardial effusion. Inferior Vena Cava Normal inferior vena cava with <50% collapse upon inspiration consistent with normal right atrial pressure, 5 mmHg. Aorta The aortic root size at the sinus of Valsalva is normal. Left Ventricular Outflow Tract Name Value Normal LVOT 2D
[2022-01-05] MEDS: FAMOTIDINE 20 MG/2 ML VIAL IV PUSH (09:49)
--- NOTE | 2022-01-05 12:03 | PCCCNOTE ---
Care Coordination. On 01/05/22, the student, {Caitlin Rawls], provided care and completed [employer] documentation on this patient. I have reviewed the student's documentation and agree with the findings.
[2022-01-05] MEDS: ACETAMINOPHEN 500 MG TABLET 1000 MG PO (13:20)
[2022-01-05] MEDS: ONDANSETRON INJ 4 MG/2 ML VIAL IV PUSH (13:22)
--- NOTE | 2022-01-05 15:56 | PM.CNCAR ---
Assessment and Plan Assessment and plan (1) Chest pain: Code(s): R07.9 - Chest pain, unspecified Status: Acute Assessment and Plan: Her chest pain is noncardiac. It is likely GI in etiology. She describes dysphagia. She has pain has been present for 1-2 days. Pain did not improve with nitro. EKG shows no acute changes and her troponins are negative. Will give her a GI cocktail and consult Dr. Palma (2) GERD (gastroesophageal reflux disease): Code(s): K21.9 - Gastro-esophageal reflux disease without esophagitis Status: Acute Assessment and Plan: As above. She is on IV Pepcid at this point (3) Hypertension: Code(s): I10 - Essential (primary) hypertension Status: Acute Assessment and Plan: Above goal (4) Hyperlipidemia: Code(s): E78.5 - Hyperlipidemia, unspecified Status: Acute Assessment and Plan: On statin (5) Dysphagia: Code(s): R13.10 - Dysphagia, unspecified Status: Acute Assessment and Plan: As detailed above (6) PVCs (premature ventricular contractions): Code(s): I49.3 - Ventricular premature depolarization Status: Acute Assessment and Plan: PVCs are likely benign. Will order a magnesium level as well as a TSH and T4 level but she has a longstanding history of palpitations need she has no significant runs of ventricular arrhythmia noted on monitor. 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 While this has nothing to do with her current symptoms, she does need outpatient follow-up and maintenance evaluation with serial echocardiograms over time. This can be performed by her primary dramatic agent History of Present Illness History of Present Illness Consult date/time: 01/05/22 15:56 Requesting physician: Sol Hernandez APN-C Consult reason: chest pain Reason For Visit: Chest Pain Narrative: Reason for consultation: Chest pain, ventricular ectopy Date of service 01/05/2022 Requesting provider: Sol Hernandez History: Patient is a 81-year-old female who does follow with [facility], Dr. Berrios. She was admitted to this hospital back in 2019 and had a stress test at that time which showed no ischemia. She started developed chest pain about 2 days ago. She states the chest pain kept her up all night. She did take a Pepcid without any benefit. She then tried to eat some food the next morning including a eggs which cause the pain to be significantly worse and severe. She then had some electrical type shocks the radiate to the left side. It hurt to swallow. She was not short of breath but did feel weak. She has had some lower extremity swelling which is not new or different. She occasionally has palpitations which are also not new or different. She denies any paroxysmal nocturnal dyspnea, orthopnea, syncope or significant presyncope. She came to hospital for further workup evaluation because of the persistent chest pain. EKG shows no acute ST or T-wave abnormalities. Troponins are negative. She still has a 2/10 discomfort at this point. Review of Systems Review of Systems: All systems reviewed & are unremarkable except as noted in HPI and below Constitutional: Constitutional: Reports weakness Eyes: Eyes: Denies blurry vision ENT: Reports Normal hearing present Cardiovascular: Cardiovascular: Reports chest pain Respiratory: Respiratory: Denies dyspnea Gastrointestinal: Gastrointestinal: Reports abdominal pain Genitourinary: Genitourinary: Denies flank pain Musculoskeletal: Musculoskeletal: Denies neck pain Integumentary/Breasts: Skin/Breast: Denies dry skin Neurologic: Denies headache(s) Psychiatric: Psychiatric: Denies anxiety Endocrine: Endo
--- NOTE | 2022-01-05 17:06 | PM.IMPN ---
Progress Note: A&P Additional Plan Assessment and plan (1) Chest pain: Code(s): R07.9 - Chest pain, unspecified Status: Acute Assessment and Plan: - Serial troponins negative x4 - Low suspicion for ACS. - Normal Lexiscan stress test 2019 - ECHO with normal EF of 60-65% and normal LVSF. - Pt. with intermittent Trigeminy, Cardiology consulted and have no further recommendations except to consult GI. (2) Hypertension: Code(s): I10 - Essential (primary) hypertension Status: Acute Assessment and Plan: - Resume home meds - Continue to monitor (3) Hyperlipidemia: Code(s): E78.5 - Hyperlipidemia, unspecified Status: Acute Assessment and Plan: - Resume home meds (4) GERD (gastroesophageal reflux disease): Code(s): K21.9 - Gastro-esophageal reflux disease without esophagitis Status: Acute Assessment and Plan: - Pepcid was discontinued and PPI, Protonix 40 mg IVP BID was ordered to maximize the PPI Effect. - Gastroenterology consult placed and appreciate their management recommendations. Time Spent With Patient Time with patient: 15 - 25 minutes Subjective Date/time seen: 01/05/22 1330 This pt. was examined at the bedside in interval assessment. She continues to endorse CP in the center of her chest. Her troponin's were negative x4, and she had a normal Lexiscan stress test in 2019, making the overall concern for possible ACS low. ECHO today showed a normal LVSF of 60-65%, no increased Left ventricular wall thickness, and she has a left ventricular diastolic function of grade 1 dysfunction. There is mild to moderate AVR, mild MVR, mild TVR and moderate pulmonary HTN. I was advised by nursing staff that she did have intermittent Trigeminy. Cardiology was consulted secondary to this and they believe symptoms are all due to GERD, and Dr. Palma is consulted. Pt. continues to complain of burning in her chest. No dyspnea, N/V. Review of Systems Review of Systems: A 12 point ROS was performed and is otherwise negative with exception of what is noted in HPI. All systems reviewed & are unremarkable except as noted in HPI and below Exam Const: General: comfortable and no acute distress HENMT: Mouth: Yes moist mucous membranes Eyes: Sclera: sclerae normal Neck: Neck: supple and no JVD Resp: Effort & Inspection: normal respiratory effort Auscultation: clear to auscultation bilaterally Cardio: Rate: regular rate Rhythm: regular rhythm GI: GI Palp: Yes Soft to palpation, No Tenderness to palpation present (GI) and No Guarding due to palpation present (GI) Auscultation: normal bowel sounds Skin: General skin exam: normal color and no rashes or lesions noted Neuro: General: gait normal Speech: normal speech Extrem: General: normal to inspection Right upper extremity: normal to inspection Left upper extremity: normal to inspection Right lower extremity: normal to inspection Left lower extremity: normal to inspection Psych: Mental Status: mental status grossly normal Affect: normal affect Thought content: Yes Normal thought content present Objective Data Vital Signs Vital Signs: Vital Signs - 24 hr 01/04/22 17:15 01/04/22 17:16 01/04/22 17:30 Temperature Pulse Rate 76 82 76 Respiratory Rate 17 27 H 14 Blood Pressure 133/64 Pulse Oximetry 99 97 99 01/04/22 17:31 01/04/22 17:45 01/04/22 17:46 Temperature Pulse Rate 78 78 80 Respiratory Rate 14 19 14 Blood Pressure 120/76 138/97 H Pulse Oximetry 100 99 99 01/04/22 18:00 01/04/22 18:15 01/04/22 18:19 Temperature Pulse Rate 82 82 74 Respiratory Rate 14 17 12 Blood Pressure 134/82 Pulse Oximetry 99 99 99 01/04/22 18:30 01/04/22 18:32 01/04/22 18:51 Temperature Pulse Rate 78 81 81 Respiratory Rate 11 L 16 16 Blood Pressure 152/97 H Pulse Oximetry 94 100 01/04/22 19:00 01/04/22 19:16 01/04/22 19:30 Temperature Pulse Rate 84 80 Respiratory Rate 27
[2022-01-05] MEDS: BELLADONNA ALK/PHENOB ELIX 10 ML, MAG HYDROX/ALUMINUM HYD/SIMETH 30 ML, LIDOCAINE HCL 2... PO (18:03)
[2022-01-05] MEDS: PANTOPRAZOLE SODIUM IV 40 MG VIAL IV PUSH (20:19)
[2022-01-05 21:26] LABS: Magnesium 2.3 mg/dL (1.6-2.3)
[2022-01-05 21:51] LABS: Thyroid Stimulating Hormone 0.879 uIU/mL (0.465-4.680)
[2022-01-05] MEDS: MELATONIN 5 MG TABLET PO (23:05)
[2022-01-06] VITALS (12 sets, daily range): BP systolic 132–153; BP diastolic 59–73; PULSE 61–98; RESP 14–20; TEMP 36.1–36.6; O2SAT 93–100
--- NOTE | 2022-01-06 07:20 | WPDGICN ---
Assessment and Plan Assessment and plan (1) Chest pain: Code(s): R07.9 - Chest pain, unspecified Status: Acute Assessment and Plan: Patient has chest pain that is very consistent with possible acid reflux disease. Because of poor response to proton pump inhibitor such as omeprazole will plan to proceed with EGD. It is likely she may benefit from increasing her dose of omeprazole to40mg p.o. daily. Anti-reflux measures are encouraged. Supplementing medications with antacid such as Mylanta may also be feasible further recommendations will be given after endoscopy. (2) GERD (gastroesophageal reflux disease): Code(s): K21.9 - Gastro-esophageal reflux disease without esophagitis Status: Acute Assessment and Plan: Patient with an established diagnosis of GE reflux she has been on omeprazole for some time. Currently this is failing to control her symptoms. Plan is for EGD to assess more thoroughly today. Likely will need adjustment of her dose. GI Consult Note Consult date/time: 01/06/22 07:20 HPI: Holly Mei is a 81 year old female I am asked to see because of chest pain. Patient known to have acid reflux in the past. Has been on omeprazole for several years. She states that she began to get substernal chest pain over the last several weeks. It intensified this week. She describes as burning. It is better when she sits upright it is worse when she eats. She has undergone cardiac evaluation it is our Cardiology yesterday feeling is this is not cardiac chest pain. Patient denies any dysphagia. She has had no bleeding or weight loss. She is quite anxious. She reports in the past she has also had diverticulitis. Her family history is noncontributory. Review of Systems Review of Systems: All systems reviewed & are unremarkable except as noted in HPI and below [facility] Past Medical History Medical History (Updated 01/05/22 @ 16:04 by Andrés Ferraro MD) Hyperlipidemia Hypertension Family History Family History Sibling Acute myocardial infarction Sibling No problems noted. Mother Breast cancer Bone cancer Father Alcoholic Social History Social History Years smoked: 10 Smoking status: Former smoker Tobacco type: cigarettes Smoking end date: 01/03/75 Alcohol intake: current Drinks per week: 2 Substance use: never Gender identity (if verbalized by the patient): Female Spiritual care concerns: No Meds Home Medications and Allergies Home Medications Medication Instructions Recorded Confirmed Type cetirizine 10 mg PO DAILY 07/15/20 01/05/22 History diclofenac sodium 100 mg PO BID 07/15/20 01/05/22 History duloxetine 30 mg PO QPM 07/15/20 01/05/22 History duloxetine 60 mg PO QAM 07/15/20 01/05/22 History lisinopril 5 mg PO DAILY 07/15/20 01/05/22 History omeprazole 20 mg PO DAILY 07/15/20 01/05/22 History aspirin 81 mg PO DAILY 01/05/22 01/05/22 History rosuvastatin 20 mg PO DAILY 01/05/22 01/05/22 History Allergies Allergy/AdvReac Type Severity Reaction Status Date / Time morphine Allergy Nausea and Verified 07/15/20 10:39 Vomiting Vital Signs Vital Signs - 24 hr 01/05/22 08:00 01/05/22 08:08 01/05/22 10:00 Temperature 96.1 F L Pulse Rate 109 H 74 Respiratory Rate 18 Blood Pressure 144/74 H Pulse Oximetry 96 95 01/05/22 11:03 01/05/22 12:00 01/05/22 14:00 Temperature 96.8 F L Pulse Rate 72 81 85 Respiratory Rate 18 Blood Pressure 146/78 H Pulse Oximetry 97 01/05/22 16:00 01/05/22 18:00 01/05/22 19:53 Temperature 97.6 F 98.0 F Pulse Rate 75 84 78 Respiratory Rate 18 20 Blood Pressure 118/56 L 133/62 Pulse Oximetry 96 95 01/05/22 20:00 01/05/22 22:00 01/05/22 23:59 Temperature 98.1 F Pulse Rate 76 70 76 Respiratory Rate 20 20 Blood Pressure 136/56 L Pulse
--- NOTE | 2022-01-06 07:43 | PC.NURSE ---
Patient transported by RYANNE Chambelrain with GI to GI lab at 0738 by wheelchair.
[2022-01-06] MEDS: LACTATED RINGERS 1,000 ML 150 ML IV CONT (07:45)
--- NOTE | 2022-01-06 07:48 | P.PNAN_ITS ---
Anes - Initial Pre Proc Eval Procedure: Operation Date: 01/06/22 14:00 Proposed Procedures p Esophagogastroduodenoscopy - Adama Palma MD Date/Time: 01/06/22 07:48 Surgeon: GAVIN Mohamud Pre Op Diagnosis: Chest Pain Patient Data Age: 81 Gender: F Height: 1.55 m Weight: 68 kg Last Vital Signs Temp 36.1 C L 01/06/22 04:00 Pulse 63 01/06/22 06:00 Resp 20 01/06/22 04:00 BP 153/68 H 01/06/22 04:00 Pulse Ox 97 01/06/22 04:00 Allergies Allergy/AdvReac Type Severity Reaction Status Date / Time morphine Allergy Nausea and Verified 01/06/22 07:51 Vomiting Home Medications Medication Instructions Recorded Confirmed Type cetirizine 10 mg PO DAILY 07/15/20 01/05/22 History diclofenac sodium 100 mg PO BID 07/15/20 01/05/22 History duloxetine 30 mg PO QPM 07/15/20 01/05/22 History duloxetine 60 mg PO QAM 07/15/20 01/05/22 History lisinopril 5 mg PO DAILY 07/15/20 01/05/22 History omeprazole 20 mg PO DAILY 07/15/20 01/05/22 History aspirin 81 mg PO DAILY 01/05/22 01/05/22 History rosuvastatin 20 mg PO DAILY 01/05/22 01/05/22 History Laboratory Tests 01/05/22 17:59 Magnesium 2.3 mg/dL mg/dL (1.6-2.3) TSH 0.879 uIU/mL uIU/mL (0.465-4.680) Thyroxine (T4) 12.20 ug/dL H ug/dL (5.53-11.0) Patient hx anesthesia problems: none Family hx anesthesia problems: none Results Review: All pre-operative results and documents have been reviewed as part of the pre-operative evaluation. [facility] Past Medical History Medical History Hyperlipidemia Hypertension Surgical History Surgical History (Updated 01/06/22 @ 07:51 by Kamaljit Santos MD) H/O laparoscopy History of total knee arthroplasty Family History Family History Sibling Acute myocardial infarction Sibling No problems noted. Mother Breast cancer Bone cancer Father Alcoholic Social History Social History Years smoked: 10 Smoking status: Former smoker Tobacco type: cigarettes Smoking end date: 01/03/75 Alcohol intake: current Drinks per week: 2 Substance use: never Gender identity (if verbalized by the patient): Female Spiritual care concerns: No Anes - Eval Final PreProcedure Day of Procedure 01/06/22 07:48 Patient weight: overweight Heart: regular rate and rhythm Lungs: clear to auscultation Airway: Mallampati scale class II and other (upper plate, lower partial) Neurological: alert and oriented Last oral intake: >/= 8 hours ASA classification: II Emergent: no Anesthetic plan: proceed Anesthesia type and monitoring: general GIVS and standard monitoring Results Review: All pre-operative results and documents have been reviewed as part of the pre-operative evaluation. Informed Consent: The patient's anesthetic plan and its attendant risks and benefits were discussed with the patient/family/POA. Questions were solicited and answers provided to the satisfaction of the patient/family/POA.
--- NOTE | 2022-01-06 09:35 | PC.NURSE ---
Report received by RYANNE Baker with GI lab at 0925.
--- NOTE | 2022-01-06 09:39 | PC.NURSE ---
Patient back to room at 0937 from GI lab. This nurse to resume patient care.
--- NOTE | 2022-01-06 10:48 | PM.DS ---
DS: Admitting Diagnosis Discharge Date 01/06/2022 Admitting Diagnosis Chest Pain, HTN, HLD, GERD DS: Discharge Diagnosis Discharge Diagnosis (1) Chest pain: Qualifiers: Chest pain type: unspecified Qualified Code(s): R07.9 - Chest pain, unspecified Code(s): R07.9 - Chest pain, unspecified Status: Acute Assessment and Plan: - Troponin's negative. - EKG's stable. - Cardiology consulted and have no concern of ACS. - Lexiscan in 2019 was negative. - ECHO showed normal EF of 60-65% and normal LVSF. (2) Hypertension: Qualifiers: Hypertension type: unspecified Qualified Code(s): I10 - Essential (primary) hypertension Code(s): I10 - Essential (primary) hypertension Status: Acute Assessment and Plan: - Stable during this admission. - Continue home medications. (3) Hyperlipidemia: Qualifiers: Hyperlipidemia type: unspecified Qualified Code(s): E78.5 - Hyperlipidemia, unspecified Code(s): E78.5 - Hyperlipidemia, unspecified Status: Acute Assessment and Plan: - Home medications were continued. (4) GERD (gastroesophageal reflux disease): Qualifiers: Esophagitis presence: without esophagitis Qualified Code(s): K21.9 - Gastro-esophageal reflux disease without esophagitis Code(s): K21.9 - Gastro-esophageal reflux disease without esophagitis Status: Acute Assessment and Plan: - PPI treatment was started and maximized with Protonix 40 mg BID. - GI was consulted and pt. had EGD this AM. Dx: GERD. - GI recommends Omeprazole 40 mg po daily, bland diet and OK to discharge per GI. DS: Summary Hospital Course Hospital Course: This 81 year old female patient with significant PMH of HTN, HLD, depression and GERD, presented to the ER on 01/04/22, with complaints of feeling weak and having two days of a middle, burning CP that is intermittent without any typical accompanying symptoms of ACS such as Dyspnea, N/V, diaphoresis, and no infectious causes such as cough, sputum production, fever, rigors, chills, syncope, palpitations or dizziness. She was admitted to the hospital for rule out ACS and also for further evaluation. Pt. had negative troponin's, benign EKG's, normal ECHO and also a reviewed Lexiscan stress test from 2019 was reviewed and it was low risk. Cardiology was consulted because pt. did have an intermittent trigeminy pattern that has since resolved. They had no recommendations other than to consult GI who saw her today. Pt. had an EGD today that showed an otherwise benign appearance. Pt. is being treated for GERD. She states she still has the sensation in her chest, and says she cannot eat, but at the same time, she says she Must go home today, as she has some kind of event tomorrow. Her VSS, and her workups have been benign as have her labs, so discharge today is reasonable. The pt. was educated on the fact that we are increasing her Omeprazole dosage for home. In addition, she is educated on a bland diet and given a list of appropriate foods that she could eat. She will be referred to GI ouptatient upon discharge. Time Spent with Patient Time attestation: Total time spent providing and/or coordinating discharge services: 35 minutes Exam Narrative: Const: General: comfortable and no acute distress HENMT: Mouth: Yes moist mucous membranes Eyes: Sclera: sclerae normal Neck: Neck: supple and no JVD Resp: Effort & Inspection: normal respiratory effort Auscultation: clear to auscultation bilaterally Cardio: Rate: regular rate Rhythm: regular rhythm GI: GI Palp: Yes Soft to palpation, No Tenderness to palpation present (GI) and No Guarding due to palpation present (GI) Auscultation: normal bowel sounds Skin: General skin exam: normal color and no rashes or lesions noted Neuro: General: gait normal Speech: normal speech Extrem: General: normal to inspection Right upper extremity: normal to inspe
[2022-01-06] MEDS: PANTOPRAZOLE 40 MG TABLET PO (11:35)
[2022-01-06] MEDS: FLUTICASONE PROPIONATE 0.05% NA SPR 16 GM BTL (*BKC) 2 SPRAY NASAL (11:35)
== END 2022-01-06 14:42 | disposition home or self-care (01) ==
LOC: ANHED 15:57 → ANHIMU 20:08
PROVIDERS: Emergency Medicine; Internal Medicine Cardiovascular Disease; Internal Medicine Gastroenterology; Admitting Provider Family Medicine; Emergency Provider Emergency Medicine; PCP Internal Medicine; Visit Provider Nurse Practitioner Adult Health
PROC: 0DJ08ZZ Inspection of Upper Intestinal Tract, Via Natural or Artificial Opening Endoscopic (ICD-10-PCS; CPT 43235; principal; 2022-01-06 14:00)
DX: K21.9 Gastro-esophageal reflux disease without esophagitis (principal); R07.9 Chest pain, unspecified; R13.10 Dysphagia, unspecified; I10 Essential (primary) hypertension; I49.3 Ventricular premature depolarization; I35.1 Nonrheumatic aortic (valve) insufficiency; I35.0 Nonrheumatic aortic (valve) stenosis; E78.5 Hyperlipidemia, unspecified; F32.A Depression, unspecified; Z87.891 Personal history of nicotine dependence
CPT/HCPCS: 43239; 36415; 71046; 80053; 83690; 83735; 84436; 84443; 84484; 85025; 85610; 85730; 87081; 93005; 93306; 96374; 96375; 96376; 99285; A9270; C9113; G0378; J2405; J2704; J7120

== ENCOUNTER 2024-01-24 15:10 | Emergency (ER) | payer MEDICARE, SELFPAY ==
--- NOTE | ~2024-01-24 | CT_ITS ---
EXAMINATION: CT abdomen pelvis wo con DATE: 01/24/2024 15:47 INDICATION: Left lower quadrant pain TECHNIQUE: Computed tomography (CT) of the abdomen and pelvis was performed without intravenous contr ast. The dose-length product (DLP) was 496.79 mGy-cm. Automated exposure control and iterative recons truction technique were employed. COMPARISON: 07/15/2020 FINDINGS: Minimal dependent atelectasis is present in the lung bases. The heart size is normal. There is a 4 mm nodule of the right middle lobe, likely old granulomatous disease. There is a chronic area of low-attenuation in the left hepatic lobe which appears to relate to the left portal vein. The mame er is otherwise unremarkable. The spleen, pancreas, and adrenal glands are normal. A stone is present in the nondistended gallbladder. Cysts of the kidneys measure up to 3.9 cm on the left. No pathologi shaunna enlarged abdominal or pelvic lymph nodes are identified. No free intraperitoneal gas or evidenc e of bowel obstruction. There are changes of posterior fusion at L4-5. There is severe lumbar spondyl osis. IMPRESSION: 1. No CT correlate for the patient's symptoms. 2. Chronic area of low-attenuation in the left hepatic lobe, possibly related to the left portal vein . Follow-up with nonemergent CT or MRI with contrast is recommended. Reviewed, dictated and finalized at location F. IMPRESSION: 1. No CT correlate for the patient's symptoms. 2. Chronic area of low-attenuation in the left hepatic lobe, possibly related t o the left portal vein. Follow-up with nonemergent CT or MRI with contrast is r ecommended.
--- NOTE | ~2024-01-24 | CT_ITS ---
EXAMINATION: CT brain wo con INDICATION: Facial paresthesia COMPARISON: None TECHNIQUE: Standard unenhanced head CT. The dose-length product (DLP) was 681.00 mGy-cm. The mA was a djusted according to patient size. Iterative reconstruction technique was employed. FINDINGS: No acute intraparenchymal hemorrhage. No evidence of mass lesion. No evidence of acute infa rction. There is mild periventricular and subcortical hypodensity probably related to small vessel is chemic disease. There is mild prominence of the sulci and ventricles related to cerebral atrophy. Int racranial calcified cerebral atherosclerosis is noted. No extra-axial collections. No mass effect or midline shift. The orbits and soft tissues are unremarkable. There is mild mucosal thickening of the paranasal sinuses. IMPRESSION: 1. No acute intracranial abnormality. 2. Age related findings. Reviewed, dictated and finalized at location F.
[2024-01-24 15:18] VITALS: BP 99/66; PULSE 99; RESP 20; TEMP 36.9; O2SAT 98
--- NOTE | 2024-01-24 15:23 | ED.ABDPAIN ---
HPI - Abdominal Pain General Chief Complaint: Abdominal Pain <Svetlana Irwin PA-C - Last Filed: 01/25/24 09:12> Stated Complaint: neuro <Svetlana Irwin PA-C - Last Filed: 01/25/24 09:12> Time Seen by Provider: 01/24/24 15:23 <Svetlana Irwin PA-C - Last Filed: 01/25/24 09:12> Focused HPI: Patient is an 83 y/o female who presents to the ED with multiple complaints. Patient first reports she developed pain in her L lower abdomen on Sunday morning. Pain has been intermittent since then. She states it feels similar to when she has had previous kidney stones. Last kidney stone had to be surgically removed 1 year ago. Patient also reports she developed pain in her left-sided neck radiating into her left upper extremity on Sunday night. States pain with mild at , minimal on Sunday. Pain then became worse last night and began radiating into her left lower extremity. Patient notes a history of TIA in the . She became concerned she may be having another TIA. reports having decreased sensation on the left side of her face. Denies confusion, difficulty speaking, numbness, vision changes, chest pain, shortness breath. Denies dysuria, hematuria, N/V, fevers. GENERAL: Elderly, well-nourished, and in no acute distress. HEAD: Normocephalic, atraumatic. EYES: PERRL. EOMI, conjunctiva clear. CHEST: Clear to auscultation. ?No respiratory distress. HEART: Regular rate and rhythm.? NEURO: ?Alert and oriented x3. no focal neurologic deficits. Equal piano assembler strength bilaterally. Strength 5/5 in upper and lower extremities bilaterally. Sensation intact throughout extremities. Subjective decreased sensation in left-sided face. PSYCH: Tearful Patient screened in triage and initial orders placed.? ?Additional care and disposition to be based upon?diagnostic testing and treatment. <RAMON Rothman Last Filed: 01/25/24 09:12> Source: patient <RAMON Rothman Last Filed: 01/25/24 09:12> Mode of arrival: ambulatory <Svetlana Irwin PA-C - Last Filed: 01/25/24 09:12> Limitations: no limitations <Svetlana Irwin PA-C - Last Filed: 01/25/24 09:12> History of Present Illness HPI narrative: 83-year-old female present to the emergency department for multiple complaints including left lateral neck pain and left lower back pain that radiates to her left hip. <Alfa Rich MD - Last Filed: 01/26/24 03:56> Related Data Home Medications: Home Medications Medication Instructions Recorded Confirmed cetirizine 10 mg capsule 10 mg PO DAILY 07/15/20 01/05/22 diclofenac sodium 100 mg 100 mg PO BID 07/15/20 01/05/22 tablet,extended release 24 hr duloxetine 30 mg capsule,delayed 30 mg PO QPM 07/15/20 01/05/22 release duloxetine 60 mg capsule,delayed 60 mg PO QAM 07/15/20 01/05/22 release lisinopril 10 mg tablet 5 mg PO DAILY 07/15/20 01/05/22 aspirin 81 mg tablet 81 mg PO DAILY 01/05/22 01/05/22 rosuvastatin 20 mg tablet 20 mg PO DAILY 01/05/22 01/05/22 <Svetlana Irwin PA-C - Last Filed: 01/25/24 09:12> Allergies/Adverse Reactions: Allergies Allergy/AdvReac Type Severity Reaction Status Date / Time morphine Allergy Nausea and Verified 01/24/24 15:21 Vomiting <Svetlana Irwin PA-C - Last Filed: 01/25/24 09:12> Review of Systems Review of Systems: All systems reviewed & are unremarkable except as noted in HPI and below <Alfa Rich MD - Last Filed: 01/26/24 03:56> [facility] Past Medical History Medical History: Medical History (Updated 01/25/24 @ 00:04 by Bobby Kumari) Hyperlipidemia Hypertension <Svetlana Irwin PA-C - Last Filed: 01/25/24 09:12> Surgical History Surgical History: Surgical History (Updated 01/06/22 @ 07:51 by Kamaljit Santos MD) H/O laparoscopy History of total knee arthroplasty <CIRILO RothmanC - Last Filed: 01/25/24 09:12>
--- NOTE | 2024-01-24 15:25 | ECG_ITS ---
Measurements Intervals [place] Rate: 81 P: 61 FL: 154 QRS: -21 QRSD: 98 T: 32 QT: 351 QTc: 409 Interpretive Statements SINUS RHYTHM INCOMPLETE RIGHT BUNDLE BRANCH BLOCK BORDERLINE R WAVE PROGRESSION, ANTERIOR LEADS BASELINE ARTIFACT- I, III, AVL, V5 BORDERLINE ECG COMPARED TO ECG 01/04/2022 14:41:01 NO SIGNIFICANT CHANGES Electronically Signed On 01-24-2024 18:27:25 CDT by Tani De Jesus D.O.
[2024-01-24 16:12] LABS: Basophils Percent Auto 0.6 % (0.2-1.2); Eosinophils Absolute Auto 0.1 K/mm3 (0-0.3); Eosinophils Percent Auto 2.6 % (0-4.4); Hematocrit 37.6 % (37.0-47.0); Hemoglobin 11.5 g/dL (12.0-15.0); Immature Granulocyte Absolute 0.01 K/mm3 (0.00-0.031); Immature Granulocyte Percent A 0.2 % (0-0.5); Lymphocytes Absolute Auto 1.71 K/mm3 (0.9-3.2); Lymphocytes Percent Auto 34.1 % (18.3-44.2); Mean Corpuscular HGB Conc 30.6 g/dl (32-36); Mean Corpuscular Hemoglobin 28.3 pg (26-34); Mean Corpuscular Volume 92.4 fl (80-100); Monocytes Absolute Auto 0.5 K/mm3 (0.1-0.6); Monocytes Percent Auto 9.4 % (2.6-8.5); Neutrophils Absolute Auto 2.7 K/mm3 (1.3-6.7); Neutrophils Percent Auto 53.1 % (45.5-73.1); Platelet Count Result 171 k/mm3 (150-375); Red Blood Count 4.07 M/mm3 (4.2-5.4); Red Cell Distribution Width 14.4 % (11.5-14.5)
[2024-01-24 16:17] LABS: Appearance Urine Clear (Clear); Bacteria Urine None Seen /hpf; Bilirubin Urine Negative (Negative); Blood Urine Negative (Negative); Color Urine Yellow (Yellow); Glucose Urine UA Negative (Negative); Ketones Urine Trace mg/dL (Negative); Leukocyte Esterase Ur 1+ LEU/UL (Negative); Nitrate Urine Negative (Negative); Non Pathogenic Casts 0-2; Protein Urine Negative (Negative); RBC Urine 0-2 /hpf (0-2); Specific Grav Ur 1.019 (1.001-1.035); Squamous Epithelial Cell Urine None Seen /hpf (Few); Urobilinogen Urine 0.2 mg/dL (<2.0); WBC Urine 21-50 /hpf (0-3); pH Urine 5.5 (5.0-9.0)
[2024-01-24 16:20] LABS: Add Urine Microscopic? YES; Alanine Aminotransferase 11 U/L (6-35); Albumin Level 4.1 g/dL (3.5-5.1); Alkaline Phosphatase 96 U/L (38-126); Anion Gap 3 mmol/L (8-16); Aspartate Amino Transferase 22 U/L (14-36); Bilirubin,Total 0.5 mg/dL (0.2-1.3); Blood Urea Nitrogen 18 mg/dL (7-17); Calcium 10.2 mg/dL (8.4-10.2); Carbon Dioxide 26 mmol/L (22-30); Chloride 108 mmol/L (98-107); Estimated CRCL calculation 36 ml/min; Estimated Glomerular Filt Rate 60; Glucose 90 mg/dL (65-110); Potassium 4.1 mmol/L (3.4-5.0); Sodium 137 mmol/L (137-145)
[2024-01-24 16:25] LABS: INR 0.9; Prothrombin Time 12.8 Seconds (11.1-14.7)
[2024-01-24 16:26] LABS: Partial Thromboplastin Time 31.9 Seconds (22.3-36.8)
[2024-01-24 16:32] LABS: Troponin I < 0.012 ng/mL (0.000-0.034)
[2024-01-24 19:47] VITALS: BP 160/67; PULSE 77; RESP 14; O2SAT 99
[2024-01-24] MEDS: CYCLOBENZAPRINE HCL 10 MG TABLET PO (19:52)
== END 2024-01-24 20:14 | disposition home or self-care (01) ==
PROVIDERS: Physician Assistant; Emergency Provider Emergency Medicine; PCP Internal Medicine
DX: N39.0 Urinary tract infection, site not specified (principal); S16.1XXA Strain of muscle, fascia and tendon at neck level, initial encounter; M54.12 Radiculopathy, cervical region; E78.5 Hyperlipidemia, unspecified; I10 Essential (primary) hypertension; Z86.73 Personal history of transient ischemic attack (TIA), and cerebral infarction without residual deficits; Z87.442 Personal history of urinary calculi; Z87.891 Personal history of nicotine dependence; Z79.82 Long term (current) use of aspirin; I45.10 Unspecified right bundle-branch block; R94.31 Abnormal electrocardiogram [ECG] [EKG]; X58.XXXA Exposure to other specified factors, initial encounter
CPT/HCPCS: 36415; 70450; 74176; 80053; 84484; 85025; 85610; 85730; 87077; 87086; 87088; 87186; 93005; 96365; 99284; A9270; J0696

== ENCOUNTER 2024-03-28 22:13 | Inpatient (IN) | payer MEDICARE, SELFPAY ==
--- NOTE | ~2024-03-28 | CT_ITS ---
EXAMINATION: CT abdomen pelvis w con DATE: 03/29/2024 00:52 INDICATION: Right abdominal pain. TECHNIQUE: Computed tomography (CT) of the abdomen and pelvis was performed with 100 mL Omnipaque 350 intravenous contrast. Automated exposure control and iterative reconstruction technique were employe d. The dose-length product was 449.44 mGy-cm. COMPARISON: CT abdomen and pelvis 01/24/2024 FINDINGS: The visualized portions of the lung bases demonstrate mild atelectasis. No pleural effusion . The heart size is normal. There are calcifications of the aortic valve. No pericardial effusion. Th ere are cysts in the liver measuring up to 7 mm. 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 The gallbladder, spleen, pancreas, and adrenal glands are normal. There is cortical thinning of the kidneys. There are cysts in the kidneys measuring up to 3.7 cm on the left. There is mild right hydro nephrosis and proximal hydroureter. There is a 3 mm stone in proximal right ureter. There is divertic ulosis of the colon without evidence of diverticulitis. There are no dilated loops of bowel. The appe ndix is normal. There is calcified atherosclerosis of the aorta and many of the other arteries. There are no pathologically enlarged lymph nodes. There is no free intraperitoneal fluid. There is severe lumbar spondylosis. There are changes of posterior and anterior fusion procedures at L4-L5. IMPRESSION: 1. 3 mm stone in proximal right ureter with mild right hydronephrosis and proximal hydroureter. Reviewed, dictated and finalized at location A. IMPRESSION: 1. 3 mm stone in proximal right ureter with mild right hydronephrosis and proxi mal hydroureter.
--- NOTE | ~2024-03-28 | XR_ITS ---
EXAMINATION: XR retrograde pyelo w/stent RT DATE: 03/29/2024 13:06 INDICATION: Right ureteral stone. TECHNIQUE: 26 intraoperative fluoroscopic views of the abdomen and pelvis were obtained. I was not pr esent. Fluoroscopy exposure time was 30 seconds. COMPARISON: CT abdomen pelvis 03/29/24 FINDINGS: The right-sided retrograde pyelogram demonstrates mild hydronephrosis. There is a right int ernal ureteral stent in expected position. There are changes of anterior and posterior fusion procedu res in lumbar spine. IMPRESSION: 1. Mild right hydronephrosis. Right internal ureteral stent in expected position. Reviewed, dictated and finalized at location A. IMPRESSION: 1. Mild right hydronephrosis. Right internal ureteral stent in expected positio n.
--- NOTE | ~2024-03-28 | XR_ITS ---
EXAMINATION: XR abdomen/kub 1V DATE: 03/31/2024 10:41 INDICATION: Kidney stone. TECHNIQUE: A supine view of the abdomen was obtained. COMPARISON: CT abdomen and pelvis 03/29/2024 FINDINGS: There are no dilated loops of bowel. There is a right internal ureteral stent in expected p osition. There is a phlebolith in left pelvis. There are changes of anterior posterior fusion procedu res at L4-L5. Vascular calcifications overlie the area of proximal right ureter. IMPRESSION: 1. No visible urolithiasis. Right internal ureteral stent in expected position. Reviewed, dictated and finalized at location E.
[2024-03-28 22:13] VITALS: BP 155/89; PULSE 84; RESP 14; TEMP 36.2; O2SAT 100
[2024-03-28 22:30] VITALS: BP 141/85; PULSE 80; RESP 14; O2SAT 97
[2024-03-28 23:29] VITALS: BP 161/114; PULSE 82; RESP 17; O2SAT 100
[2024-03-28 23:30] VITALS: BP 141/88; PULSE 82; RESP 15; O2SAT 100
--- NOTE | 2024-03-28 23:49 | ED.ABDPAIN ---
HPI - Abdominal Pain General Chief Complaint: Abdominal Pain <RAMON Corona Last Filed: 04/02/24 09:59> Stated Complaint: abd pain <RAMON Corona Last Filed: 04/02/24 09:59> Time Seen by Provider: 03/28/24 22:43 <RAMON Corona Last Filed: 04/02/24 09:59> Source: patient <RAMON Corona Last Filed: 04/02/24 09:59> Mode of arrival: EMS <RAMON Corona Last Filed: 04/02/24 09:59> Limitations: no limitations <RAMON Corona Last Filed: 04/02/24 09:59> History of Present Illness HPI narrative: This is a 84 year old female that presents to the ER for abdominal pain ongoing over the last couple of hours. Associated with nausea. Reports pain in her right lower quadrant. Reports history of kidney stones. Denies fevers, vomiting, diarrhea, dysuria or hematuria. <RAMON Corona Last Filed: 04/02/24 09:59> Related Data Home Medications: Home Medications Medication Instructions Recorded Confirmed diclofenac sodium 100 mg 100 mg PO Q12H 07/15/20 03/29/24 tablet,extended release 24 hr duloxetine 30 mg capsule,delayed 30 mg PO HS 07/15/20 03/29/24 release duloxetine 60 mg capsule,delayed 60 mg PO QA 07/15/20 03/29/24 release lisinopril 10 mg tablet 5 mg PO DAILY 07/15/20 03/29/24 atorvastatin 40 mg tablet 40 mg PO DAILY 03/29/24 03/29/24 bupropion HCl 150 mg tablet,12 hr 150 mg PO Q12H 03/29/24 03/29/24 sustained-release cholecalciferol (vitamin D3) 100 100 mcg PO DAILY 03/29/24 03/29/24 mcg (4,000 unit) capsule diphenhydramine 25 1 tablet PO HS 03/29/24 03/29/24 mg-acetaminophen 500 mg tablet (Tylenol PM Extra Strength) omeprazole 40 mg capsule,delayed 40 mg PO Q12H 03/29/24 03/29/24 release [id number]-[id number]-[id number] 1 mg 1 tablet PO DAILY 03/29/24 03/29/24 tablet <Nayeli Godfrey PA-C - Last Filed: 04/02/24 09:59> Allergies/Adverse Reactions: Allergies Allergy/AdvReac Type Severity Reaction Status Date / Time ceftriaxone [From Rocephin] Allergy Intermediate Itching Verified 03/31/24 13:56 morphine Allergy Nausea and Verified 03/31/24 13:56 Vomiting amoxicillin [From Augmentin] AdvReac Intermediate Rash Verified 03/31/24 13:56 clavulanic acid AdvReac Intermediate Rash Verified 03/31/24 13:56 [From Augmentin] vancomycin AdvReac Rash Verified 03/31/24 13:56 <Nayeli Godfrey PA-C - Last Filed: 04/02/24 09:59> Review of Systems Review of Systems: CONSTITUTIONAL: Denies fever GASTROINTESTINAL: Reports abdominal pain, nausea. Denies vomiting, or diarrhea. GENITOURINARY: Denies dysuria or hematuria. <Nayeli Godfrey PA-C - Last Filed: 04/02/24 09:59> All systems reviewed & are unremarkable except as noted in HPI and below <Nayeli Godfrey PA-C - Last Filed: 04/02/24 09:59> [facility] Past Medical History Medical History: Medical History Depression with anxiety GERD (gastroesophageal reflux disease) Hyperlipidemia Hypertension Kidney stones <Nayeli Godfrey PA-C - Last Filed: 04/02/24 09:59> Surgical History Surgical History: Surgical History H/O laparoscopy History of back surgery History of total knee arthroplasty <RAMON Corona Last Filed: 04/02/24 09:59> Family History Family History: Family History Sibling Acute myocardial infarction Sibling No problems noted. Mother Breast cancer Bone cancer Father Alcoholic <Nayeli Godfrey PA-C - Last Filed: 04/02/24 09:59> Social History Social History: Social History Years smoked: 10 Smoking status: Former smoker Alcohol intake: current Drinks per week: 2 Substance use: never Do You Feel Safe in your Home?: Ye
[2024-03-28] MEDS: ACETAMINOPHEN 500 MG TABLET 1000 MG PO (23:59)
[2024-03-29] VITALS (15 sets, daily range): BP systolic 135–184; BP diastolic 59–96; PULSE 62–84; RESP 13–20; TEMP 35.7–36.4; O2SAT 92–100; BMI 29.2
[2024-03-29] LABS: Basophils Percent Auto 0.5 % (0.2-1.2); Eosinophils Absolute Auto 0.1 K/mm3 (0-0.3); Eosinophils Percent Auto 1.6 % (0-4.4); Hematocrit 37.4 % (37.0-47.0); Hemoglobin 11.7 g/dL (12.0-15.0); Immature Granulocyte Absolute 0.02 K/mm3 (0.00-0.031); Immature Granulocyte Percent A 0.2 % (0-0.5); Immature Platelet Fraction Pct 14.4 % (0.9-11.2); Lymphocytes Absolute Auto 1.64 K/mm3 (0.9-3.2); Lymphocytes Percent Auto 20.1 % (18.3-44.2); Mean Corpuscular HGB Conc 31.3 g/dl (32-36); Mean Corpuscular Hemoglobin 28.3 pg (26-34); Mean Corpuscular Volume 90.6 fl (80-100); Mean Platelet Volume 13.5 fl (7.4-10.4); Monocytes Absolute Auto 0.6 K/mm3 (0.1-0.6); Monocytes Percent Auto 7.6 % (2.6-8.5); Neutrophils Absolute Auto 5.7 K/mm3 (1.3-6.7); Platelet Count Result 161 k/mm3 (150-375); Red Blood Count 4.13 M/mm3 (4.2-5.4); Red Cell Distribution Width 14.6 % (11.5-14.5); White Blood Count 8.2 K/mm3 (4.5-10.0)
[2024-03-29 00:38] LABS: Estimated CRCL calculation 30 ml/min; Estimated Glomerular Filt Rate 48
[2024-03-29 00:43] LABS: Alanine Aminotransferase 16 U/L (6-35); Alkaline Phosphatase 86 U/L (38-126); Anion Gap 5 mmol/L (4-12); Aspartate Amino Transferase 26 U/L (14-36); Bilirubin,Total 0.4 mg/dL (0.2-1.3); Blood Urea Nitrogen 22 mg/dL (7-17); Calcium 10.2 mg/dL (8.4-10.2); Carbon Dioxide 25 mmol/L (22-30); Chloride 110 mmol/L (98-107); Estimated CRCL calculation 36 ml/min; Estimated Glomerular Filt Rate 60; Glucose 118 mg/dL (65-110); Lipase 74 U/L (23-300); Potassium 4.4 mmol/L (3.4-5.0); Sodium 140 mmol/L (137-145)
[2024-03-29 01:25] LABS: Appearance Urine Cloudy (Clear); Bacteria Urine 4+ /hpf; Bilirubin Urine Negative (Negative); Blood Urine 2+ (Negative); Color Urine Yellow (Yellow); Glucose Urine UA Negative (Negative); Ketones Urine Trace mg/dL (Negative); Leukocyte Esterase Ur 2+ LEU/UL (Negative); Nitrate Urine Positive (Negative); Non Pathogenic Casts 0-2; Protein Urine Negative (Negative); RBC Urine 21-50 /hpf (0-2); Specific Grav Ur 1.028 (1.001-1.035); Squamous Epithelial Cell Urine None Seen /hpf (Few); Urobilinogen Urine 0.2 mg/dL (<2.0); WBC Urine 21-50 /hpf (0-3); pH Urine 5.5 (5.0-9.0)
[2024-03-29 01:30] LABS: Add Urine Microscopic? YES
[2024-03-29] MEDS: SODIUM CHLORIDE 0.9% IV 1,000 ML 75 ML IV CONT (07:06)
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
--- NOTE | 2024-03-29 08:40 | ADMGEN ---
This patient, Holly Mei, was admitted to [facility] Surg Room 326-01. Patient/family oriented to hospital policies and general routines including ID bracelet, bed and alarms, visiting hours, pain management, procedures, bathroom and other care routines, personal items, smoking policy, room service/diet, and visiting hours. Information on how to activate the Rapid Response Team has been discussed. Patient/Family are encouraged to report perceived risks to care and to ask questions if they do not understand what they are told or what they should do.
--- NOTE | 2024-03-29 11:58 | WPDANESEPPF ---
Anes - Initial Pre Proc Eval Procedure: Operation Date: 03/29/24 13:00 Proposed Procedures p Cysto, RPG, Stone Ext, Stent Placement(Right) - Kamaljit See MD Date/Time: 03/29/24 11:58 Surgeon: Dionna Allen DO Pre Op Diagnosis: Infected Stone Patient Data Age: 84 Gender: F Height: 1.52 m Weight: 68 kg Last Vital Signs Temp 97.1 F L 03/28/24 22:13 Pulse 78 03/29/24 08:20 Resp 16 03/29/24 08:20 BP 152/84 H 03/29/24 08:20 Pulse Ox 95 03/29/24 10:22 O2 Del Method Room Air 03/29/24 10:22 Allergies Allergy/AdvReac Type Severity Reaction Status Date / Time morphine Allergy Nausea and Verified 03/29/24 08:59 Vomiting vancomycin AdvReac Rash Verified 03/29/24 08:59 Home Medications Medication Instructions Recorded Confirmed Type diclofenac sodium 100 mg 100 mg PO Q12H 07/15/20 03/29/24 History tablet,extended release 24 hr duloxetine 30 mg capsule,delayed 30 mg PO HS 07/15/20 03/29/24 History release duloxetine 60 mg capsule,delayed 60 mg PO QAM 07/15/20 03/29/24 History release lisinopril 10 mg tablet 5 mg PO DAILY 07/15/20 03/29/24 History cyclobenzaprine 10 mg tablet 10 mg PO BID PRN muscle spasm #14 01/24/24 03/29/24 Rx tabs atorvastatin 40 mg tablet 40 mg PO DAILY 03/29/24 03/29/24 History bupropion HCl 150 mg tablet,12 hr 150 mg PO Q12H 03/29/24 03/29/24 History sustained-release cholecalciferol (vitamin D3) 100 100 mcg PO DAILY 03/29/24 03/29/24 History mcg (4,000 unit) capsule diphenhydramine 25 1 tablet PO HS 03/29/24 03/29/24 History mg-acetaminophen 500 mg tablet (Tylenol PM Extra Strength) omeprazole 40 mg capsule,delayed 40 mg PO Q12H 03/29/24 03/29/24 History release [id number]-[id number] 1 mg 1 tablet PO DAILY 03/29/24 03/29/24 History tablet Laboratory Tests 03/28/24 03/29/24 03/29/24 23:54 00:27 00:35 WBC 8.2 K/mm3 (4.5-10.0) RBC 4.13 L M/mm3 (4.2-5.4) Hgb 11.7 L g/dL (12.0-15.0) Hct 37.4 % (37.0-47.0) MCV 90.6 fl (80-100) MCH 28.3 pg (26-34) MCHC 31.3 L g/dl (32-36) RDW 14.6 H % (11.5-14.5) Plt Count 161 k/mm3 (150-375) MPV 13.5 H fl (7.4-10.4) Immature Gran % (Auto) 0.2 % (0-0.5) Neut % (Auto) 70.0 % (45.5-73.1) Lymph % (Auto) 20.1 % (18.3-44.2) [place] % (Auto) 7.6 % (2.6-8.5) Eos % (Auto) 1.6 % (0-4.4) Baso % (Auto) 0.5 % (0.2-1.2) Lymph # (Auto) 1.64 K/mm3 (0.9-3.2) [place] # (Auto) 0.6 K/mm3 (0.1-0.6) Eos # (Auto) 0.1 K/mm3 (0-0.3) Baso # (Auto) 0.0 K/mm3 (0.0-0.1) Abs Immat Gran (auto) 0.02 K/mm3 (0.00-0.031) Absolute Neuts (auto) 5.7 K/mm3 (1.3-6.7) Absolute Nucleated RBC 0.000 K/mm3 (0.0-0.012) Nucleated RBC % 0.0 % (0.0-0.2) % Immature Plt Fraction 14.4 H % (0.9-11.2) Sodium 140 mmol/L (137-145) Potassium 4.4 mmol/L (3.4-5.0) Chloride 110 H mmol/L (98-107) Carbon Dioxide 25 mmol/L (22-30) Anion Gap 5 mmol/L (4-12) BUN 22 H mg/dL (7-17) Creatinine 0.90 mg/dL 1.10 mg/dL (0.7-1.0) (0.7-1.2) Estim Creat Clear Calc 36 ml/min 30 ml/min Estimated GFR 60 48 L (59 - ) (59 - ) Glucose 118 H mg/dL (65-110) Calcium 10.2 mg/dL (8.4-10.2) Total Bilirubin 0.4 mg/dL (0.2-1.3) AST 26 U/L (14-36) ALT 16 U/L (6-35) Alkaline Phosphatase 86 U/L (38-126) Total Protein 7.0 g/dL (6.3-8.2) Albumin 4.0 g/dL (3.5-5.1) Lipase 74 U/L (23-300) Urine Color Urine Appearance Urine pH Ur Specific [place] Urine Protein Urine Glucose (UA) Urine Ketones
--- NOTE | 2024-03-29 12:02 | PC.NURSE ---
Pt. down to pre-op via stretcher.
--- NOTE | 2024-03-29 12:28 | WPDURCON ---
Assessment and Plan Assessment and plan (1) Acute UTI: Code(s): N39.0 - Urinary tract infection, site not specified Status: Acute (2) Ureterolithiasis: Code(s): N20.1 - Calculus of ureter Status: Acute Assessment and Plan: right ureter stone with hydro and suspected UTI. plan for cysto RPG, stent placement, risks, benefits, alternatives nature of procedure, how a stent is placed, temporary nature of stent reviewed in detail. Understands we are not treating stone. Understands stent can cause pain, reviewed risks of PCN tube. Understands she will additional surgery to treat stone when UTI treated, discussed anesthesia risk of SD, stroke, blood clots, disability, pt agrees to proceed, agree with broad spectrum empiric abx coverage, al ? answered in laymans terms Urology Consult Note HPI Date Seen: 03/29/24 Requesting Physician: Dionna Allen DO Primary Care Provider: Hollis Perez, Consult Narrative Narrative: Holly Mei is a 84 year old female with hx of nephrolithiasis, who present to ED with acute onset of right flank pain with colic. Denies fevers or chills. Denies hematuria or dysuria. UA suspicious fo UTI, normal WBC, normal CR. Has had prior stones, had a stent last year in rehab in [place]. Knows stents are temporary. CT shows 3 mm proximal stone wit hydro. Review of Systems Constitutional: Constitutional: Reports as per HPI and Reports no additional constitutional complaints Eyes: Eyes: Reports as per HPI and Reports no additional eye complaints ENT: Reports system reviewed and no additional complaints, except as documented and Reports Normal hearing present Cardiovascular: Cardiovascular: Reports as per HPI and Reports no additional cardiovascular complaints Respiratory: Respiratory: Reports as per HPI and Reports no additional respiratory complaints Gastrointestinal: Gastrointestinal: Reports as per HPI and Reports no additional gastrointestinal complaints Genitourinary: Genitourinary: Reports no additional female genitourinary complaints Integumentary/Breasts: Skin/Breast: Reports system reviewed and no additional complaints, except as docu Neurologic: Reports system reviewed and no additional complaints, except as documented Psychiatric: Psychiatric: Reports no additional psychiatric complaints PMFSH Past Medical History Medical History Depression with anxiety GERD (gastroesophageal reflux disease) Hyperlipidemia Hypertension Kidney stones Surgical History Surgical History H/O laparoscopy History of back surgery History of total knee arthroplasty Family History Family History Sibling Acute myocardial infarction Sibling No problems noted. Mother Breast cancer Bone cancer Father Alcoholic Social History Social History Years smoked: 10 Smoking status: Former smoker Alcohol intake: current Drinks per week: 2 Substance use: never Do You Feel Safe in your Home?: Yes Lack of Transportation: No Lack of Food: Never True Current Housing: I Have Housing Concerned About Future Housing: No Difficulty Paying Gas/Electric Bills: No Difficulty Paying for Meds: No Currently Unemployed: No Education: High School Diploma/GED Difficulty w/ Childcare or Family Care: No Living arrangements: alone Occupation/Education: retired Gender identity (if verbalized by the patient): Female Spiritual care concerns: No Meds Home Medications and Allergies Home Medications Medication Instructions Recorded Confirmed Type diclofenac sodium 100 mg 100 mg PO Q12H 07/15/20 03/29/24 History tablet,extended release 24 hr duloxetine 30 mg capsule,delayed 30 mg PO
--- NOTE | 2024-03-29 12:37 | WPDHPUPDATE1 ---
History and Physical Update Update Date/Time: 03/29/24 12:37 History and Physical has been reviewed, including an updated exam of the patient. There are NO changes in the patient's condition. Risks, benefits, and alternatives have been discussed and questions answered. Patient agrees to proceed with procedure.
--- NOTE | 2024-03-29 13:04 | P.OP_ITS ---
Procedure Note - Detailed Date of Procedure 03/29/24 Pre-op Diagnosis Infected right ureter Stone Post-op Diagnosis Same Procedure Performed cystoscopy, right retrograde , right stent placement Surgeon Kamaljit See MD Anesthesia General Indications right ureter stone with UTI Findings expected right hydronephrosis Description of Procedure Patient was brought back to the operating room and was given anesthesia via LMA. She was prepped and draped in standard surgical fashion in dorsal lithotomy position with betadine scrub to the genitalia. Care was taken to not hyperflex or extend any extremity all pressure points padded. She received IV rocephin in the ER. After appropriate timeout was performed a 22 Fr cystoscope was inserted in to the urethral bladder was normal, no tumor lesion or foreign body, single orthotopic bilateral ureteral orifices, effluxing yellow urine. Sensor wire placed under fluoroscopy up the right u/o up into the kidney. A 5 Fr open ended catheter was threaded over this, gentle retrograde was performed to outline collecting system, there was mild hydronephrosis. Sensor wire replaced under fluoroscopy and a 6 Fr variable length stent was deployed with good curl seen fl uoroscopically in the kidney and both fluoroscopically and endoscopically in the bladder. Bladder was drained all instruments and wires removed, pt awoken and transferred to PACU in stable condition. No family to speak with. Implants right 6 Fr variable length stent Estimated Blood Loss 0
[2024-03-29] MEDS: LIDOCAINE HCL 2% GEL UROJET 10 ML PKG MUCOUS MEM (13:08)
[2024-03-29] MEDS: LACTATED RINGERS 1,000 ML 30 ML IV CONT (13:10)
[2024-03-29] MEDS: hydrALAZINE HCL 20 MG/ML VIAL 5 MG IV PUSH (13:34)
--- NOTE | 2024-03-29 14:14 | PC.NURSE ---
PT. back from PACU.
[2024-03-29] MEDS: ACETAMINOPHEN 325 MG TABLET 650 MG PO (16:37)
[2024-03-29] MEDS: HYDROcodone/acetaminophen (*CRX) 5-325 MG TABLET 1 TAB PO (17:56)
[2024-03-29] MEDS: DULoxetine HCL 30 MG CAPSULE.DR PO (20:19)
[2024-03-29] MEDS: PANTOPRAZOLE 40 MG TABLET PO (20:19)
[2024-03-29] MEDS: ACETAMINOPHEN 500 MG TABLET PO (20:20)
[2024-03-29] MEDS: diphenhydrAMINE HCl CAP 25 MG CAPSULE PO (20:20)
[2024-03-29] MEDS: buPROPion HCL SR (12 HR) 150 MG TAB PO (20:20)
[2024-03-30 04:00] VITALS: BP 131/64; PULSE 78; RESP 12; TEMP 36.3; O2SAT 98
[2024-03-30] MEDS: HYDROcodone/acetaminophen (*CRX) 5-325 MG TABLET 1 TAB PO (04:46)
[2024-03-30 06:16] LABS: Hematocrit 40.2 % (37.0-47.0); Hemoglobin 12.3 g/dL (12.0-15.0); Immature Platelet Fraction Pct 14.5 % (0.9-11.2); Mean Corpuscular HGB Conc 30.6 g/dl (32-36); Mean Corpuscular Hemoglobin 27.9 pg (26-34); Mean Corpuscular Volume 91.2 fl (80-100); Mean Platelet Volume 13.3 fl (7.4-10.4); Platelet Count Result 142 k/mm3 (150-375); Red Blood Count 4.41 M/mm3 (4.2-5.4); Red Cell Distribution Width 14.6 % (11.5-14.5); White Blood Count 4.7 K/mm3 (4.5-10.0)
[2024-03-30 06:27] LABS: Anion Gap 3 mmol/L (4-12); Blood Urea Nitrogen 15 mg/dL (7-17); Calcium 10.1 mg/dL (8.4-10.2); Carbon Dioxide 27 mmol/L (22-30); Chloride 109 mmol/L (98-107); Estimated CRCL calculation 41 ml/min; Estimated Glomerular Filt Rate > 60; Glucose 90 mg/dL (65-110); Potassium 3.9 mmol/L (3.4-5.0); Sodium 139 mmol/L (137-145)
[2024-03-30] MEDS: ATORVASTATIN 40 MG TABLET PO (07:51)
[2024-03-30] MEDS: CHOLECALCIFEROL 1,000 UNITS TABLET 4000 UNITS PO (07:51)
[2024-03-30] MEDS: DULoxetine HCL 60 MG CAPSULE.DR PO (07:51)
[2024-03-30] MEDS: lisinopriL 5 MG TABLET PO (07:51)
[2024-03-30] MEDS: PANTOPRAZOLE 40 MG TABLET PO ×2 (07:51→21:34)
[2024-03-30] MEDS: buPROPion HCL SR (12 HR) 150 MG TAB PO ×2 (07:51→21:34)
[2024-03-30] MEDS: MULTIVIT/MIN/PREN/FOL AC/IRON TABLET 1 TAB PO (07:51)
[2024-03-30] MEDS: KETOROLAC 30 MG/ML VIAL (*BKC) IV PUSH (09:31)
--- NOTE | 2024-03-30 09:31 | P.PNIM_ITS ---
Progress Note: A&P Assessment and Plan (1) Ureterolithiasis: Code(s): N20.1 - Calculus of ureter Status: Acute Assessment and Plan: * 3 mm radiopaque stone in the right ureter with proximal hydronephrosis. * Urology placed stent right ureter 03/29 (2) Acute UTI: Code(s): N39.0 - Urinary tract infection, site not specified Status: Acute Assessment and Plan: * Ceftriaxone given 03/29, 03/30 AM * Culture pending * 03/30 due to possible allergic rxn, switched to amoxiclav 875 bid (3) Aortic valvular disease: Code(s): I35.9 - Nonrheumatic aortic valve disorder, unspecified Status: Acute Assessment and Plan: * Followed by PCP * Currently w/o symptoms (4) Hypertension: Qualifiers: Hypertension type: unspecified Qualified Code(s): I10 - Essential (primary) hypertension Code(s): I10 - Essential (primary) hypertension Status: Acute Assessment and Plan: * Elevated at admission, likely due to pain * Continue home regimen * 03/30 131/64 (5) Hyperlipidemia: Qualifiers: Hyperlipidemia type: unspecified Qualified Code(s): E78.5 - Hyperlipidemia, unspecified Code(s): E78.5 - Hyperlipidemia, unspecified Status: Acute Assessment and Plan: * Continue statin (6) GERD (gastroesophageal reflux disease): Qualifiers: Esophagitis presence: without esophagitis Qualified Code(s): K21.9 - Gastro-esophageal reflux disease without esophagitis Code(s): K21.9 - Gastro-esophageal reflux disease without esophagitis Status: Acute Assessment and Plan: * Continue PPI (7) Urticaria: Code(s): L50.9 - Urticaria, unspecified Status: Acute Assessment and Plan: * History of morphine allergy * No history of allergy to beta-lactam * Stop Jay and Rocephin * Utilize acetaminophen, ketorolac for analgesia and Amoxiclav for antibiotic * IV diphenhydramine and p.o. hydroxyzine for rash and itching Subjective Date/time seen: 03/30/24 09:31 Interval history: Did well with right ureteral stent placement 03/29. However overnight developed urticarial rash with itching star moves thighs back. Also with aching to cramping right lower quadrant discomfort, different than stone pain. Also with frequent urination. No dysuria or hematuria noted No nausea vomiting. No. No chest pain or shortness of breath. No focal
--- NOTE | 2024-03-30 09:31 | PM.IMPN ---
Progress Note: A&P Assessment and Plan (1) Ureterolithiasis: Code(s): N20.1 - Calculus of ureter Status: Acute Assessment and Plan: 3 mm radiopaque stone in the right ureter with proximal hydronephrosis. Urology placed stent right ureter 03/29 (2) Acute UTI: Code(s): N39.0 - Urinary tract infection, site not specified Status: Acute Assessment and Plan: Ceftriaxone given 03/29, 03/30 AM Culture pending 03/30 due to possible allergic rxn, switched to amoxiclav 875 bid (3) Aortic valvular disease: Code(s): I35.9 - Nonrheumatic aortic valve disorder, unspecified Status: Acute Assessment and Plan: Followed by PCP Currently w/o symptoms (4) Hypertension: Qualifiers: Hypertension type: unspecified Qualified Code(s): I10 - Essential (primary) hypertension Code(s): I10 - Essential (primary) hypertension Status: Acute Assessment and Plan: Elevated at admission, likely due to pain Continue home regimen 03/30 131/64 (5) Hyperlipidemia: Qualifiers: Hyperlipidemia type: unspecified Qualified Code(s): E78.5 - Hyperlipidemia, unspecified Code(s): E78.5 - Hyperlipidemia, unspecified Status: Acute Assessment and Plan: Continue statin (6) GERD (gastroesophageal reflux disease): Qualifiers: Esophagitis presence: without esophagitis Qualified Code(s): K21.9 - Gastro-esophageal reflux disease without esophagitis Code(s): K21.9 - Gastro-esophageal reflux disease without esophagitis Status: Acute Assessment and Plan: Continue PPI (7) Urticaria: Code(s): L50.9 - Urticaria, unspecified Status: Acute Assessment and Plan: History of morphine allergy No history of allergy to beta-lactam Stop [place] and Rocephin Utilize acetaminophen, ketorolac for analgesia and Amoxiclav for antibiotic IV diphenhydramine and p.o. hydroxyzine for rash and itching Subjective Date/time seen: 03/30/24 09:31 Interval history: Did well with right ureteral stent placement 03/29. However overnight developed urticarial rash with itching star moves thighs back. Also with aching to cramping right lower quadrant discomfort, different than stone pain. Also with frequent urination. No dysuria or hematuria noted No nausea vomiting. No. No chest pain or shortness of breath. No focal weakness. Denied other pain. Review of Systems Review of Systems: All systems reviewed & are unremarkable except as noted in HPI and below Exam Narrative: SKIN: Eruption on proximal arms, thighs, legs, back. HEENT: EOMI, PERRL, sclerae nonicteric, pharyngeal mucosa pink and intact NECK: No JVD, adenopathy, or thyromegaly CHEST: Clear to auscultation. Normal effort. HEART: NL S1/S2, regular, 3/6 systolic ejection murmur radiating to the carotids, 3/6 harsh holosystolic murmur radiating toward the axilla. ABDOMEN: BS+, soft, tender to moderate palpation of the right lower quadrant without guarding rebound or rigidity, no mass, no bruits EXTREMITIES: No cyanosis, edema, or clubbing NEUROLOGIC: CN intact and symmetric to inspection. MUSCULOSKELETAL: Tone and strength symmetric. Decreased range of motion of the right ankle on dorsiflexion and plantar flexion with some bony enlargement. PSYCH: Alert. Oriented to person, place, and time. Objective Data Vital Signs Vital Signs: Vital Signs - 24 hr 03/29/24 10:14 03/29/24 10:22 03/29/24 13:10 Temperature 97.6 F Pulse Rate 62 Respiratory Rate 16 Blood Pressure 172/79 H Pulse Oximetry 95 99 Oxygen Delivery Room Air Room Air Simple Face Mask Oxygen Flow Rate 10 03/29/24 13:15 03/29/24 13:30 03/29/24 13:45 Temperature Pulse Rate 62 64 68 Respiratory Rate 14 17 20 Blood Pressure 184/76 H 175/71 H 166/83 H Pulse Oximetry 100 96 99 Oxygen Delivery Room Air Room Air Room Air Oxygen Flow Rate 03/29/24
[2024-03-30] MEDS: diphenhydrAMINE HCl INJ 50 MG/ML VIAL 25 MG IV PUSH (09:32)
--- NOTE | 2024-03-30 12:52 | WPDUROPN2 ---
Progress Note: A&P Assessment and Plan (1) Acute UTI: Code(s): N39.0 - Urinary tract infection, site not specified Status: Acute (2) Ureterolithiasis: Code(s): N20.1 - Calculus of ureter Status: Acute Assessment and Plan: POD#1 s/p stent placement. urine cx with relimnary e coli continue abx. outpt stone management when UTI clears Subjective Subjective Date/Time Seen: 03/30/24 12:52 Review of Systems Review of Systems: having stent related pain, urgency and frequency. No N/V. No CP/SOB. Constitutional: Constitutional: Reports as per HPI Eyes: Eyes: Reports no additional eye complaints ENT: Reports system reviewed and no additional complaints, except as documented Cardiovascular: Cardiovascular: Reports no additional cardiovascular complaints Respiratory: Respiratory: Reports no additional respiratory complaints Gastrointestinal: Gastrointestinal: Reports as per HPI Genitourinary: Genitourinary: Reports no additional female genitourinary complaints Musculoskeletal: Musculoskeletal: Reports no additional musculoskeletal complaints Integumentary/Breasts: Skin/Breast: Reports system reviewed and no additional complaints, except as docu Neurologic: Reports system reviewed and no additional complaints, except as documented Psychiatric: Psychiatric: Reports no additional psychiatric complaints Endocrine: Endocrine: Reports no additional endocrine complaints Exam Const: General: cooperative, healthy appearing and comfortable HENMT: Head: normal to inspection, normocephalic and atraumatic Eyes: General: appearance normal, both eyes and all related structures Resp: Effort & Inspection: normal respiratory effort and able to speak in complete sentences GI: Inspection: non-distended and no obesity : General: No CVA tenderness Objective Data Vital Signs Vital Signs: Vital Signs - 24 hr 03/29/24 13:10 03/29/24 13:15 03/29/24 13:30 Temperature 36.4 C Pulse Rate 62 62 64 Respiratory Rate 16 14 17 Blood Pressure 172/79 H 184/76 H 175/71 H Pulse Oximetry 99 100 96 Oxygen Delivery Simple Face Mask Room Air Room Air Oxygen Flow Rate 10 03/29/24 13:45 03/29/24 14:30 03/29/24 15:00 Temperature 35.9 C L 35.7 C L Pulse Rate 68 75 84 Respiratory Rate 20 20 20 Blood Pressure 166/83 H 174/79 H 167/80 H Pulse Oximetry 99 96 97 Oxygen Delivery Room Air Oxygen Flow Rate 03/29/24 20:00 03/29/24 20:00 03/29/24 23:48 Temperature 36.2 C L 36.2 C L Pulse Rate 67 75 Respiratory Rate 14 13 Blood Pressure 135/60 136/59 L Pulse Oximetry 96 95 Oxygen Delivery Room Air Oxygen Flow Rate 03/30/24 04:00 03/30/24 08:00 Temperature 36.3 C L Pulse Rate 78 Respiratory Rate 12 Blood Pressure 131/64 Pulse Oximetry 98 Oxygen Delivery Room Air Oxygen Flow Rate Intake/Output Intake/Output: Intake & Output 03/27/24 03/28/24 03/29/24 03/30/24 23:59 23:59 23:59 23:59 Intake Total 290 1050 Output Total 900 Balance -610 1050 Meds/Results Medications: Active Medications Generic Name Dose Route Start Last Admin Trade Name Freq PRN Reason Stop Dose Admin Acetaminophen 500 mg 03/29/24 21:00 03/29/24 20:20 Acetaminophen 500 Mg Tablet PO 500 mg HS CASSIDY Administration Acetaminophen 650 mg 03/29/24 16:18 03/29/24 16:37 Acetaminophen 325 Mg Tablet PO 650 mg Q4H PRN Administration headache Acetaminophen 1,000 mg 03/30/24 09:22 Acetaminophen 500 Mg Tablet PO Q6H PRN Mild Pain (1-3) or Fever Amoxicillin/Clavulanate Potassium 1 tablet 03/30/24 21:00 Amoxicillin/Clavulanate K 875-125 Mg Tab PO Q12HR CASSIDY Atorvastatin Calcium 40 mg 03/30/24 09:00 03/30/24 07:51 Atorvastatin 40 Mg Tablet PO 40 mg DAILY CASSIDY Administration Bupropion HCl 150 mg 03/29/24 21:00 03/30/24 07:51 Bupropion Hcl Sr (12 Hr) 150 Mg Tab PO 150 mg Q12H CASSIDY Administration Duloxeti
[2024-03-30] MEDS: hydrOXYzine HCL 25 MG TABLET PO ×2 (15:04→21:34)
[2024-03-30 15:32] VITALS: BP 123/75; PULSE 97; RESP 16; TEMP 36.2; O2SAT 96
[2024-03-30] MEDS: DULoxetine HCL 30 MG CAPSULE.DR PO (21:33)
[2024-03-30] MEDS: DOCUSATE SODIUM 100 MG CAPSULE PO (21:34)
[2024-03-30] MEDS: AMOXICILLIN/CLAVULANATE K 875-125 MG TAB 1 TABLET PO (21:34)
[2024-03-30] MEDS: ACETAMINOPHEN 500 MG TABLET PO (21:34)
[2024-03-30] MEDS: KETOROLAC 15 MG/ML VIAL (*BKC) IV PUSH (21:38)
[2024-03-30 21:44] VITALS: BP 117/60; PULSE 85; RESP 18; TEMP 37.1; O2SAT 99
[2024-03-31 05:38] VITALS: BP 136/64; PULSE 87; RESP 18; TEMP 36.6; O2SAT 98
[2024-03-31 06:42] LABS: Hematocrit 38.9 % (37.0-47.0); Immature Platelet Fraction Pct 14.5 % (0.9-11.2); Mean Corpuscular HGB Conc 30.8 g/dl (32-36); Mean Corpuscular Hemoglobin 28.4 pg (26-34); Mean Platelet Volume 13.4 fl (7.4-10.4); Platelet Count Result 153 k/mm3 (150-375); Red Blood Count 4.23 M/mm3 (4.2-5.4); Red Cell Distribution Width 14.7 % (11.5-14.5); White Blood Count 5.6 K/mm3 (4.5-10.0)
[2024-03-31 07:12] LABS: Anion Gap 5 mmol/L (4-12); Blood Urea Nitrogen 24 mg/dL (7-17); Carbon Dioxide 25 mmol/L (22-30); Chloride 107 mmol/L (98-107); Estimated CRCL calculation 30 ml/min; Estimated Glomerular Filt Rate 48; Glucose 93 mg/dL (65-110); Potassium 3.9 mmol/L (3.4-5.0); Sodium 137 mmol/L (137-145)
[2024-03-31] MEDS: ATORVASTATIN 40 MG TABLET PO (08:27)
[2024-03-31] MEDS: CHOLECALCIFEROL 1,000 UNITS TABLET 4000 UNITS PO (08:27)
[2024-03-31] MEDS: DOCUSATE SODIUM 100 MG CAPSULE PO (08:28)
[2024-03-31] MEDS: AMOXICILLIN/CLAVULANATE K 875-125 MG TAB 1 TABLET PO (08:28)
[2024-03-31] MEDS: PANTOPRAZOLE 40 MG TABLET PO (08:28)
[2024-03-31] MEDS: DULoxetine HCL 60 MG CAPSULE.DR PO (08:28)
[2024-03-31] MEDS: buPROPion HCL SR (12 HR) 150 MG TAB PO (08:28)
[2024-03-31] MEDS: hydrOXYzine HCL 25 MG TABLET PO (08:28)
[2024-03-31] MEDS: MULTIVIT/MIN/PREN/FOL AC/IRON TABLET 1 TAB PO (08:28)
[2024-03-31] MEDS: lisinopriL 5 MG TABLET PO (08:29)
--- NOTE | 2024-03-31 09:27 | WPDUROPN2 ---
Progress Note: A&P Assessment and Plan (1) Acute UTI: Code(s): N39.0 - Urinary tract infection, site not specified Status: Acute (2) Ureterolithiasis: Code(s): N20.1 - Calculus of ureter Status: Acute Assessment and Plan: POD#2 s/p stent placement. urine cx with Red S e coli continue abx. outpt stone management when UTI clears, she prefers treatment at [facility], will setup with Dr Trinh or Kofi. will obtain KUB Subjective Subjective Date/Time Seen: 03/31/24 09:27 Review of Systems Review of Systems: having itching and rash from Rocephin, switched to oral, feeling better. No N/V. No CP/SOB. Constitutional: Constitutional: Reports as per HPI Eyes: Eyes: Reports no additional eye complaints ENT: Reports system reviewed and no additional complaints, except as documented Cardiovascular: Cardiovascular: Reports no additional cardiovascular complaints Respiratory: Respiratory: Reports no additional respiratory complaints Gastrointestinal: Gastrointestinal: Reports as per HPI Genitourinary: Genitourinary: Reports no additional female genitourinary complaints Musculoskeletal: Musculoskeletal: Reports no additional musculoskeletal complaints Integumentary/Breasts: Skin/Breast: Reports system reviewed and no additional complaints, except as docu Neurologic: Reports system reviewed and no additional complaints, except as documented Psychiatric: Psychiatric: Reports no additional psychiatric complaints Endocrine: Endocrine: Reports no additional endocrine complaints Exam Const: General: cooperative, healthy appearing and comfortable HENMT: Head: normal to inspection, normocephalic and atraumatic Eyes: General: appearance normal, both eyes and all related structures Resp: Effort & Inspection: normal respiratory effort and able to speak in complete sentences GI: Inspection: non-distended and no obesity : General: No CVA tenderness Objective Data Vital Signs Vital Signs: Vital Signs - 24 hr 03/30/24 15:32 03/30/24 21:44 03/30/24 20:00 Temperature 36.2 C L 37.1 C Pulse Rate 97 85 Respiratory Rate 16 18 Blood Pressure 123/75 117/60 Pulse Oximetry 96 99 Oxygen Delivery Room Air 03/31/24 05:38 Temperature 36.6 C Pulse Rate 87 Respiratory Rate 18 Blood Pressure 136/64 Pulse Oximetry 98 Oxygen Delivery Intake/Output Intake/Output: Intake & Output 03/28/24 03/29/24 03/30/24 05/27/24 23:59 23:59 23:59 23:59 Intake Total 290 2009 540 Output Total 900 Balance -610 2009 540 Meds/Results Medications: Active Medications Generic Name Dose Route Start Last Admin Trade Name Freq PRN Reason Stop Dose Admin Acetaminophen 500 mg 03/29/24 21:00 03/30/24 21:34 Acetaminophen 500 Mg Tablet PO 500 mg HS CASSIDY Administration Acetaminophen 650 mg 03/29/24 16:18 03/29/24 16:37 Acetaminophen 325 Mg Tablet PO 650 mg Q4H PRN Administration headache Acetaminophen 1,000 mg 03/30/24 09:22 Acetaminophen 500 Mg Tablet PO Q6H PRN Mild Pain (1-3) or Fever Amoxicillin/Clavulanate Potassium 1 tablet 03/30/24 21:00 03/31/24 08:28 Amoxicillin/Clavulanate K 875-125 Mg Tab PO 1 tablet Q12HR CASSIDY Administration Atorvastatin Calcium 40 mg 03/30/24 09:00 03/31/24 08:27 Atorvastatin 40 Mg Tablet PO 40 mg DAILY CASSIDY Administration Bupropion HCl 150 mg 03/29/24 21:00 03/31/24 08:28 Bupropion Hcl Sr (12 Hr) 150 Mg Tab PO 150 mg Q12H CASSIDY Administration Docusate Sodium 100 mg 03/30/24 21:00 03/31/24 08:28 Docusate Sodium 100 Mg Capsule PO 100 mg Q12HR CASSIDY Administration Duloxetine HCl 30 mg 03/29/24 21:00 03/30/24 21:33 Duloxetine Hcl 30 Mg Capsule. PO 30 mg HS CASSIDY Administration Duloxetine HCl 60 mg 03/30/24 09:00 03/31/24 08:28 Duloxetine Hcl 60 Mg Capsule. PO 60 mg QAM CASSIDY Administration Hydroxyzine HCl 25 mg 03/30/24 09:23 03/31/24 08
--- NOTE | 2024-03-31 12:43 | PM.DS ---
DS: Admitting Diagnosis Discharge Date 03/31/2024 Admitting Diagnosis Ureterolithiasis, acute UTI, aortic valvular disease, hypertension, hyperlipidemia, GERD DS: Discharge Diagnosis Discharge Diagnosis (1) Ureterolithiasis: Code(s): N20.1 - Calculus of ureter Status: Acute (2) Acute UTI: Code(s): N39.0 - Urinary tract infection, site not specified Status: Acute (3) Aortic valvular disease: Code(s): I35.9 - Nonrheumatic aortic valve disorder, unspecified Status: Acute (4) Hypertension: Qualifiers: Hypertension type: unspecified Qualified Code(s): I10 - Essential (primary) hypertension Code(s): I10 - Essential (primary) hypertension Status: Acute (5) Hyperlipidemia: Qualifiers: Hyperlipidemia type: unspecified Qualified Code(s): E78.5 - Hyperlipidemia, unspecified Code(s): E78.5 - Hyperlipidemia, unspecified Status: Acute (6) GERD (gastroesophageal reflux disease): Qualifiers: Esophagitis presence: without esophagitis Qualified Code(s): K21.9 - Gastro-esophageal reflux disease without esophagitis Code(s): K21.9 - Gastro-esophageal reflux disease without esophagitis Status: Acute (7) Urticaria: Code(s): L50.9 - Urticaria, unspecified Status: Acute Assessment and Plan: Possible drug reaction to Rocephin, morphine and Augmentin DS: Summary Hospital Course Hospital Course: This is an 84-year-old female patient who was admitted with obstructing right ureteral stone presence of urinary tract infection. Patient underwent stent placement by Urology and was treated with Rocephin for UTI. Patient developed rash and urticaria unknown it was due to IV morphine or IV Rocephin so both were stopped and added to allergy list. Patient was doing well afebrile at that time so antibiotic was changed to Augmentin. Urine culture showed pansensitive E coli. Patient plans to return for stone extraction once UTI clears. Other than continue rash significant itching patient states that she feels much better. On day of discharge she received additional dose of IV Benadryl and antibiotic was switched from Augmentin to Levaquin which was renally adjusted. Status at Discharge Cognitive/behavioral status at discharge: Awake alert oriented and pleasant Functional status at discharge: independent ambulation Overall status at discharge: patient is progressing back to baseline Time Spent with Patient Time attestation: Total time spent providing and/or coordinating discharge services: 40 minutes Time spent: Greater than 30 minutes Exam Narrative: SKIN: Eruption on proximal arms, thighs, legs, back. HEENT: EOMI, PERRL, sclerae nonicteric, pharyngeal mucosa pink and intact NECK: No JVD, adenopathy, or thyromegaly CHEST: Clear to auscultation. Normal effort. HEART: NL S1/S2, regular, murmurs noted ABDOMEN: BS+, soft, tender to moderate palpation of the right lower quadrant without guarding rebound or rigidity, no mass, no bruits EXTREMITIES: No cyanosis, edema, or clubbing NEUROLOGIC: CN intact and symmetric to inspection. MUSCULOSKELETAL: Tone and strength symmetric. Decreased range of motion of the right ankle on dorsiflexion and plantar flexion with some bony enlargement. PSYCH: Alert. Oriented to person, place, and time. DS: Data Data Completed and Pending Completed studies during hospitalization: Pelvis CT, retrograde pyelogram, KUB Labs on day of discharge: Labs from last 24 hours 03/31/24 06:21 WBC 5.6 RBC 4.23 Hgb 12.0 Hct 38.9 MCV 92.0 MCH 28.4 MCHC 30.8 L RDW 14.7 H Plt Count 153 MPV 13.4 H % Immature Plt Fraction 14.5 H Sodium 137 Potassium 3.9 Chloride 107 Carbon Dioxide 25 Anion Gap 5 BUN 24 H Creatinine 1.10 H Estim Creat Clear Calc 30 Estimated GFR 48 L Glucose 93 Calcium 10.0 Procedures/Treatments: Right ureteral stent placement Discharg
[2024-03-31] MEDS: levoFLOXacin 750 MG TABLET PO (13:10)
[2024-03-31 14:00] VITALS: BP 147/85; PULSE 53; RESP 18; TEMP 35.9; O2SAT 92
== END 2024-03-31 14:28 | disposition home or self-care (01) | DRG 661 ==
LOC: ANHED 03-29 07:01 → ANH3MEDSUR 03-29 08:15
PROVIDERS: Internal Medicine; Physician Assistant; Urology; Admitting Provider Internal Medicine; Emergency Provider Emergency Medicine; PCP Internal Medicine; Visit Provider Nurse Practitioner
PROC: BT1D1ZZ Fluoroscopy of Right Kidney, Ureter and Bladder using Low Osmolar Contrast (ICD-10-PCS; CPT 52352; principal; 2024-03-29 13:00)
DX: N13.6 Pyonephrosis (principal); I10 Essential (primary) hypertension; I35.9 Nonrheumatic aortic valve disorder, unspecified; E78.5 Hyperlipidemia, unspecified; L50.0 Allergic urticaria; K21.9 Gastro-esophageal reflux disease without esophagitis; B96.20 Unspecified Escherichia coli [E. coli] as the cause of diseases classified elsewhere; R01.1 Cardiac murmur, unspecified; F41.9 Anxiety disorder, unspecified; F32.A Depression, unspecified; Z96.659 Presence of unspecified artificial knee joint; Z87.442 Personal history of urinary calculi
CPT/HCPCS: 36415; 74018; 74177; 74420; 80048; 80053; 81001; 83690; 85025; 85027; 85055; 87077; 87086; 87088; 87186; 96365; 99285; A9270; C1758; C1769; C2617; G0378; J0360; J0696; J1200; J1885; J2704; J3010; J7030; J7120; Q9966; Q9967

== ENCOUNTER 2024-04-10 00:38 | Day surgery (SDC) | payer MEDICARE, SELFPAY ==
[2024-04-03 11:31] VITALS: BMI 29.2
--- NOTE | 2024-04-03 11:56 | PC.NURSE ---
Report to the Outpatient Waiting Room, entrance under the green pavilion located off [facility], at time ___1:30PM____ on date __04/10/24 . Planned Procedure Time: __3:30PM . Time changes happen often and if your time is changed the preop area will call you the afternoon before. - You and your visitor will be asked to self-screen and do not enter if you have any COVID symptoms. - A mask is optional within the hospital at this time. Patients may have clear liquids (water, carbonated beverages, clear teas, apple juice) until 3 hours prior to surgery with a maximum of 20 ounces. - No food from midnight until time of surgery. Take the following medications with a SIP of water the morning of surgery: BUPROPION, DULOXETINE DO NOT STOP ANY OF YOUR OTHER PRESCRIPTION MEDICATIONS PRIOR TO SURGERY ?EXCEPT THE FOLLOWING Medications to discontinue per physician ____HOLD ALL VITAMINS/SUPPLEMENTS 3 DAYS PRE-OP PER ANESTHESIA Date to take last dose 04/06/24 Please no make-up, nail cambodian, hairspray, perfume, deodorant, or body powder the day of surgery. No jewelry (including any body piercings) or valuables the day of surgery, leave them at home. Please take a shower or bath the night before, or the morning of, surgery with an antibacterial soap. Wear comfortable, loose fitting clothing. Children are encouraged to wear pajamas. - Jewelry must be removed prior to entering the operating room. Rings and piercings that are not removed may be cut off. - The hospital will not accept responsibility for valuables. - Please leave all valuables, including medications, at home the day of surgery. If you are going home after surgery, a licensed lumber driver must drive you home. - NO public transportation without another adult if you receive anesthesia. - We recommend that an adult stay with you for 24 hours following discharge. - We also recommend that you do not drive, make important decision, drink alcoholic beverages, or take any drugs that were not prescribed by your health care provider for at least 24 hours after your discharge time. For Pediatric surgeries, we recommend two adults accompany the child home. Follow any additional instructions given to you from your surgeon. If you or anyone in your household have experienced Covid symptoms in the past week, please notify your surgeon or the nurse liaison at the phone number below for possible testing. Telephone instructions given to ____PATIENT and asked if any additional questions and then verbalized understanding. Patient advised to call surgeon office or pre surgery nurse liaison [phone] if any additional questions.
--- NOTE | 2024-04-07 08:02 | PM.HPGS ---
History of Present Illness History of Present Illness Consent: Risks, benefits, and alternatives have been discussed and questions answered. Patient agrees to proceed with procedure. Chief complaint: right ureteral stone Narrative: Holly Mei is a 84 year old female with a history of recurrent urolithiasis who was recently admitted over the weekend with a urinary tract infection and obstructing 3 mm right proximal ureteral stone. My partner, Dr. See, placed ureteral stent and she now presents for definitive intervention. She is aware of the risk of ureteroscopy with stone extraction including, but not limited to, ureteral injury, need to replace a stent and need for additional procedures Review of Systems Cardiovascular: Cardiovascular: Denies chest pain, Denies lightheadedness, Denies palpitations and Denies dyspnea Respiratory: Respiratory: Denies dyspnea Gastrointestinal: Gastrointestinal: Denies diarrhea, Denies nausea and Denies vomiting Genitourinary: Genitourinary: Denies hematuria and Denies dysuria Endocrine: Endocrine: Denies palpitations PMFSH Past Medical History Medical History Depression with anxiety GERD (gastroesophageal reflux disease) Hyperlipidemia Hypertension Kidney stones Surgical History Surgical History H/O laparoscopy History of back surgery History of total knee arthroplasty Family History Family History Sibling Acute myocardial infarction Sibling No problems noted. Mother Breast cancer Bone cancer Father Alcoholic Social History Social History Years smoked: 10 Smoking status: Never smoker Alcohol intake: current Drinks per week: 2 Substance use: never Do You Feel Safe in your Home?: Yes Lack of Transportation: No Lack of Food: Never True Current Housing: I Have Housing Concerned About Future Housing: No Difficulty Paying Gas/Electric Bills: No Difficulty Paying for Meds: No Currently Unemployed: No Education: High School Diploma/GED Difficulty w/ Childcare or Family Care: No Living arrangements: alone Occupation/Education: retired Gender identity (if verbalized by the patient): Female Spiritual care concerns: No Meds Home Medications and Allergies Home Medications Medication Instructions Recorded Confirmed Type diclofenac sodium 100 mg 100 mg PO Q12H 07/15/20 04/03/24 History tablet,extended release 24 hr duloxetine 30 mg capsule,delayed 30 mg PO HS 07/15/20 04/03/24 History release duloxetine 60 mg capsule,delayed 60 mg PO QAM 07/15/20 04/03/24 History release lisinopril 10 mg tablet 5 mg PO QAM 07/15/20 04/03/24 History cyclobenzaprine 10 mg tablet 10 mg PO BID PRN muscle spasm #14 01/24/24 04/03/24 Rx tabs atorvastatin 40 mg tablet 40 mg PO DAILY 03/29/24 04/03/24 History bupropion HCl 150 mg tablet,12 hr 150 mg PO Q12H 03/29/24 04/03/24 History sustained-release cholecalciferol (vitamin D3) 100 100 mcg PO DAILY 03/29/24 04/03/24 History mcg (4,000 unit) capsule diphenhydramine 25 1 tablet PO HS 03/29/24 04/03/24 History mg-acetaminophen 500 mg tablet (Tylenol PM Extra Strength) omeprazole 40 mg capsule,delayed 40 mg PO Q12H 03/29/24 04/03/24 History release [id number]-ial-[id number]-FA 1 mg 1 tablet PO DAILY 03/29/24 04/03/24 History tablet levofloxacin 750 mg tablet 750 mg PO DIRECTED 04/03/24 04/03/24 History meloxicam 15 mg tablet 15 mg PO DAILY 04/03/24 04/03/24 History naproxen sodium 220 mg capsule 440 mg PO QAM 04/03/24 04/03/24 History (Alealexys) Allergies Allergy/AdvReac Type Severity Reaction Status Date / Time amoxicillin [From Augmentin] Allergy Intermediate Rash Verified 04/03/24 11:20 ceftriaxone [From Rocephi
[2024-04-10] VITALS (7 sets, daily range): BP systolic 102–144; BP diastolic 46–86; PULSE 72–102; RESP 12–20; TEMP 36.6–36.8; O2SAT 97–100; BMI 28.0
--- NOTE | ~2024-04-10 | XR_ITS ---
EXAMINATION: XR fluoroscopy no charge DATE: 04/10/2024 14:04 INDICATION: Right ureteral stone. TECHNIQUE: 4 intraoperative fluoroscopic views of the abdomen and pelvis were obtained. I was not pre sent. Fluoroscopy exposure time was 30 seconds. COMPARISON: CT abdomen and pelvis 03/29/2024 FINDINGS: The initial image demonstrates a right internal ureteral stent in expected position. The st ent was removed. There are changes of anterior and posterior fusion procedures at L5-S1. IMPRESSION: 1. Removal of the right internal ureteral stent. Reviewed, dictated and finalized at location A.
--- NOTE | 2024-04-10 06:12 | WPDHPUPDATE1 ---
History and Physical Update Update Date/Time: 04/10/24 06:12 History and Physical has been reviewed, including an updated exam of the patient. There are NO changes in the patient's condition. Risks, benefits, and alternatives have been discussed and questions answered. Patient agrees to proceed with procedure.
--- NOTE | 2024-04-10 12:59 | WPDANESEPPF ---
Anes - Initial Pre Proc Eval Procedure: Operation Date: 04/10/24 14:30 Proposed Procedures p Cystoscopy, Right Ureteroscopy, Possible Right Stone Extraction, Possible Right Retrograde Pyelogram, Right Stent Replacement, Possible Holmium Laser - Anastacio Trinh MD Date/Time: 04/10/24 12:59 Surgeon: Anastacio Trinh MD Pre Op Diagnosis: right ureteral stone Patient Data Age: 84 Gender: F Height: 1.52 m Weight: 68 kg Allergies Allergy/AdvReac Type Severity Reaction Status Date / Time amoxicillin [From Augmentin] Allergy Intermediate Rash Verified 04/03/24 11:20 ceftriaxone [From Rocephin] Allergy Intermediate Itching, Verified 04/03/24 11:20 RASH clavulanic acid Allergy Intermediate Rash Verified 04/03/24 11:20 [From Augmentin] vancomycin Allergy Rash, RED Verified 04/03/24 11:20 FACE, BURNING SCALP morphine AdvReac Nausea and Verified 04/03/24 11:20 Vomiting Home Medications Medication Instructions Recorded Confirmed Type diclofenac sodium 100 mg 100 mg PO Q12H 07/15/20 04/03/24 History tablet,extended release 24 hr duloxetine 30 mg capsule,delayed 30 mg PO HS 07/15/20 04/03/24 History release duloxetine 60 mg capsule,delayed 60 mg PO QAM 07/15/20 04/03/24 History release lisinopril 10 mg tablet 5 mg PO QAM 07/15/20 04/03/24 History cyclobenzaprine 10 mg tablet 10 mg PO BID PRN muscle spasm #14 01/24/24 04/03/24 Rx tabs atorvastatin 40 mg tablet 40 mg PO DAILY 03/29/24 04/03/24 History bupropion HCl 150 mg tablet,12 hr 150 mg PO Q12H 03/29/24 04/03/24 History sustained-release cholecalciferol (vitamin D3) 100 100 mcg PO DAILY 03/29/24 04/03/24 History mcg (4,000 unit) capsule diphenhydramine 25 1 tablet PO HS 03/29/24 04/03/24 History mg-acetaminophen 500 mg tablet (Tylenol PM Extra Strength) omeprazole 40 mg capsule,delayed 40 mg PO Q12H 03/29/24 04/03/24 History release [id number]-akb-Sz-FA 1 mg 1 tablet PO DAILY 03/29/24 04/03/24 History tablet levofloxacin 750 mg tablet 750 mg PO DIRECTED 04/03/24 04/03/24 History meloxicam 15 mg tablet 15 mg PO DAILY 04/03/24 04/03/24 History naproxen sodium 220 mg capsule 440 mg PO QAM 04/03/24 04/03/24 History (Aleaelxys) Patient hx anesthesia problems: none Family hx anesthesia problems: none Results Review: All pre-operative results and documents have been reviewed as part of the pre-operative evaluation. [facility] Past Medical History Medical History Depression with anxiety GERD (gastroesophageal reflux disease) Hyperlipidemia Hypertension Kidney stones Surgical History Surgical History H/O laparoscopy History of back surgery History of total knee arthroplasty Family History Family History Sibling Acute myocardial infarction Sibling No problems noted. Mother Breast cancer Bone cancer Father Alcoholic Social History Social History Years smoked: 10 Smoking status: Never smoker Alcohol intake: current Drinks per week: 2 Substance use: never Do You Feel Safe in your Home?: Yes Lack of Transportation: No Lack of Food: Never True Current Housing: I Have Housing Concerned About Future Housing: No Difficulty Paying Gas/Electric Bills: No Difficulty Paying for Meds: No Currently Unemployed: No Education: High School Diploma/GED Difficulty w/ Childcare or Family Care: No Living arrangements: alone Occupation/Education: retired Gender identity (if verbalized by the patient): Female Spiritual care concerns: No Anes - Eval Final PreProcedure Day of Procedure 04/10/24 12:59 Patient weight: overweight Heart: regular rate and rhythm Lungs: clear to auscultation Airway: Mallampati scale class II Neur
[2024-04-10] MEDS: LACTATED RINGERS 1,000 ML 30 ML IV CONT (13:15)
[2024-04-10] MEDS: levoFLOXacin 500 MG/D5W 100 ML 500 MG/100 ML BAG 100 MG IVPB (13:31)
--- NOTE | 2024-04-10 14:06 | W.PM.PROC2 ---
Procedure Note - Detailed Date of Procedure 04/10/24 Pre-op Diagnosis Right ureteral stone Post-op Diagnosis Same Procedure Performed Cystoscopy, right ureteral stent removal, right ureteroscopy with stone extraction Surgeon Anastacio Trinh MD Anesthesia General Description of Procedure patient is brought to the operative suite where she was prepped draped in routine sterile fashion while dorsal lithotomy position after the uneventful induction of a general anesthetic. Cystoscopy was undertaken with a 19 F rigid cystoscope. The tip of the indwelling stent is grasped and brought to the external urethral meatus. A 0.035 in glidewire was advanced into the right renal pelvis. Distal ureter was dilated with an 8 F 10 F dilator. Ureteroscopy was 1st undertaken with a semi-rigid ureteral scope. I can identify the stone in the proximal ureter but it washed back into a midpole calyx with irrigation. I replaced the rigid ureteral scope with a 7.5 F flexible ureteral scope. The stone was then extracted with ease with a 1.9 F disposable stone basket. Because of the ease of this procedure I opted not to replace the ureteral stent. Scopes and wires were removed and the patient was taken recovery room in good condition. Drains No Packing No Pathology Yes Complications No immediate complications
[2024-04-10] MEDS: oxyCODONE HCL (*CRX) 5 MG TAB IR PO (14:48)
== END 2024-04-10 15:30 | disposition home or self-care (01) ==
PROVIDERS: PCP Internal Medicine; Visit Provider Urology
PROC: (CPT 52352; principal; 2024-04-10 14:30)
DX: N20.1 Calculus of ureter (principal); I10 Essential (primary) hypertension; E78.5 Hyperlipidemia, unspecified; K21.9 Gastro-esophageal reflux disease without esophagitis; F41.8 Other specified anxiety disorders
CPT/HCPCS: 52352; 82365; 88300; 99199; A9270; C1769; J1100; J1956; J2405; J2704; J3010; J7120

== ENCOUNTER 2025-06-18 10:46 | Emergency (ER) | payer MEDICARE, SELFPAY ==
[2025-06-18] VITALS (13 sets, daily range): BP systolic 101–125; BP diastolic 57–88; PULSE 78–93; RESP 13–20; TEMP 36.4; O2SAT 92–99
--- NOTE | ~2025-06-18 | XR_ITS ---
EXAMINATION: XR chest 2V 06/18/2025 11:29 INDICATION: Shortness of breath and weakness PROCEDURE: 2 view chest COMPARISON: Comparison to multiple prior studies sequentially, with oldest reviewed study dated 12/2021. FINDINGS: The lungs are clear. The cardiomediastinal silhouette is within normal limits. There are no pleural effusions. There is no pneumothorax suspected. IMPRESSION: 1: NO ACUTE CARDIOPULMONARY DISEASE. Reviewed, dictated and finalized at location A.
--- NOTE | ~2025-06-18 | CT_ITS ---
EXAMINATION: CTA chest PE protocol DATE: 06/18/2025 13:26 INDICATION: Dyspnea. Elevated d-dimer. TECHNIQUE: Computed tomography (CT) pulmonary angiogram of the chest was performed with 100 mL Omnipa que-350 intravenous contrast. Additional 3D reconstructions utilizing coronal maximum intensity proje ction (MIP) were performed. Automated exposure control and iterative reconstruction technique were em ployed. The dose-length product was 187.28 mGy-cm. COMPARISON: 07/15/2020 FINDINGS: No pulmonary embolism. Mild dependent atelectasis in bilateral lower lobes. No pneumonia, pulmonary e greg, pleural effusion or pneumothorax. Heart size is normal. No pericardial effusion. Aortic valve c alcification. Thoracic aorta is normal in caliber with no dissection. No pathologically enlarged abdo francia or pelvic lymphadenopathy. A couple tiny calcified gallstones in the dependent aspect of the no rmal-appearing gallbladder. Bilateral renal cysts the largest partially visualized on the left measur ing at least 2.6 cm. Chronic appearing mild anterior wedging at T7. Spondylosis, severe at T1-T2 and L1-L2 with mild to moderate spondylosis of the intervening thoracic spine. 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 IMPRESSION: 1. No pulmonary embolism or other acute cardiopulmonary disease. 2. Cholelithiasis. Reviewed, dictated and finalized at location A.
--- NOTE | 2025-06-18 10:54 | ECG_ITS ---
Test Date: 2025-06-18 11:10:50 Measurements Intervals [place] Rate: 89 P: -3 DC: 158 QRS: -31 QRSD: 100 T: 26 QT: 351 QTc: 427 Interpretive Statements SINUS RHYTHM LEFT AXIS DEVIATION PATTERN CONSISTENT WITH PULMONARY DISEASE BASELINE ARTIFACT- I, II, AVR, AVF BORDERLINE ECG No previous ECG available for comparison Electronically Signed On 06-18-2025 12:29:01 CDT by Tani De Jesus D.O.
--- OUTSIDE RECORDS SUMMARY | 2025-06-18 11:02 | XMS_ITS ---
Author Organization [facility] Care Team Providers Care Graphics Edit Technician Name Role Phone Harjinder Craig Unavailable Unavailable Arabella Franklin Unavailable Unavailable Bryan Ayon Unavailable Unavailable China Luz Unavailable Unavailable Baudilio Martin Unavailable Unavailable Allergies and adverse reactions Code CodeSystem Substance Reaction Severity StartDate Concern Status 84012 RXNORM Vancomycin Skin reaction - finding (code- 247056197, SNOMED CT) Moderate 01/04/2023 active 7052 RXNORM Morphine Unknown 12/13/2022 active 3640 RXNORM Doxycycline Severe 12/24/2022 active 2180 RXNORM ceFAZolin Itching of skin (code- 998765475, SNOMED CT) Severe 12/22/2022 active Care Team Name Role Address Phone Organization Dates Bryan Ayon [facility]CP [address] [facility], [place], [address], [place] (Office): : : : [facility] 01/04/2023 - 02/01/2023 Harjinder Craig [address] [place] [address], [address], [facility] (Office): : [facility] 01/04/2023 - 02/01/2023 Arabella Perez Franklin [address], [place], [address], [facility] (Office): : [facility] 01/04/2023 - 02/01/2023 China Luz [address], [place], [address], [facility] (Office): : : [facility] 01/04/2023 - 02/01/2023 [facility] [address] [facility] [place], [address], [facility] (Office): : : : [facility] 01/04/2023 - 02/01/2023 Immunizations Immunization Status Vaccine Details Vaccine Code CodeSystem Date Notes Influenza completed Influenza, high-dose, split virus, quadrivalent, injectable, preservative free lotNumber: [id number] expiry: 04/22/2023 Mfg: Seqilus Given 0.5 ml Left Deltoid intramuscularly 197 CVX created date: 12/21/2022 consent date: 12/21/2022 administer ed date: 12/21/2022 TB 1 Step Mantoux (PPD) completed tuberculin skin test; unspecified formulation lotNumber: [id number] expiry: 04/05/2025 Mfg: san0fi pasteur Given 0.1 ml Left Forearm intradermally 98 CVX created date: 12/14/2022 consent date: 12/14/2022 administer ed date: 12/14/2022 Chest X-Ray for TB completed no vaccine administered 998 CVX created date: 12/17/2022 administer ed date: 12/13/2022 no evidence of TB Pneumovax (PPSV23) normal pneumococcal polysaccharide vaccine, 23 valent 33 CVX created date: 12/20/2022 consent date: 12/20/2022 [id number] Rapid test completed SARS-COV-2 (COVID-19) vaccine, vector non-replicating, recombinant spike protein-Ad26, preservative free, 0.5 mL 212 CVX created date: 12/17/2022 consent date: 12/16/2022 administer ed date: 12/14/2022 negative SARS-COV-2 single dose cancelled SARS-COV-2 (COVID-19) vaccine, vector non-replicating, recombinant spike protein-Ad26, preservative free, 0.5 mL 212 CVX created date: 12/17/2022 consent date: 12/16/2022 Mental Status Section Date Assessment Total Score Description 02/01/2023 BIMS 13 cognitively int act CAM 0 No delirium ind icated PHQ-9 04 minimal depress ion 01/10/2023 BIMS 13 cognitively int act CAM 0 No delirium ind icated PHQ-9 04 minimal depress ion Problems Problem # Description Date of onset Resolved Date Code CodeSystem Concern Status 1 ACUTE KIDNEY FAILURE, UNSPECIFIED 01/04/[address] active 2 ADVERSE EFFECT OF OTHER DRUGS, MEDICAMENTS AND BIOLOGICAL SUBSTANCES, SUBSEQUENT ENCOUNTER 01/04/[address] active 3 CHRONIC KIDNEY DISEASE, STAGE 2 (MILD) 01/04/[address] active 4 GENERALIZED SKIN ERUPTION DUE TO DRUGS AND MEDICAMENTS TAKEN INTERNALLY 01/04/[address] active 5 UNSTEADINESS ON FEET 01/04/[address] active 6 ANXIETY DISORDER, UNSPECIFIED 12/13/[address] active 7 CHRONIC MIGRAINE WITHOUT AURA, NOT INTRACTABLE, WITHOUT STATUS MIGRAINOSUS 12/13/[address] active 8 DEPRESSION, UNSPECIFIED 12/13/[address] active 9 ENCOUNTER FOR OTHER ORTHOPEDIC AFTERCARE 12/13/[address] active 10 ESSENTIAL (PRIMARY) HYPERTENSION 12/13/[address] active 11 GASTRO-ESOPHAGEAL REFLUX DISEASE WITHOUT ESOPHAGITIS 12/13/[address] active 12 HYPERLIPIDEMIA, UNSPECIFIED 12/13/[address] active 13 IRON DEFICIENCY ANEMIA, UNSPECIFIED 12/13/[address] active 14 METHICILLIN SUSCEPTIBLE STAPHYLOCOCCUS AUREUS INFECTION THE CAUSE OF DISEASES CLASSIFIED ELSEWHERE 12/13/[address] active 15 MUSCLE WEAKNESS (GENERALIZED) 12/13/[address] active 16 OTHER ABNORMALITIES OF GAIT AND MOBILITY 12/13/2022 01/02/[address] completed 17 OTHER ACUTE OSTEOMYELITIS, RIGHT ANKLE AND FOOT 12/13/[address] active 18 OTHER INSOMNIA 12/13/[address] ac tive 19 OTHER IRRITABLE BOWEL SYNDROME 12/13/[address] active 20 OTHER LACK OF COORDINATION 12/13/[address] active 21 POLYARTHRITIS, UNSPECIFIED 12/13/[address] active 22 SEPSIS, UNSPECIFIED ORGANISM 12/13/[address] active 23 STAPHYLOCOCCAL ARTHRITIS, RIGHT ANKLE AND FOOT 12/13/[address] active Reason for Referral No Reasons for Referral Entered Social History Social History Observation Description Start Date End Date Code Code System Current Smoking Status Tobacco smoking consumption unknown 085513181 SNOMED CT Sex Assigned At Female 1940 99091-9 [facility] Gender Identity Vital Signs Code Code System Vitals Name Values and Units Timing Information 9279-1 [facility] Respiratory Rate Value=20.0 Units=/m in 02/01/2023 20670-7 [facility] O2 % BldC Oximetry Value=98.0 Units= % 02/01/2023 8867-4 [facility] Heart rate Uhouy=594.0 Units=/min 02/01/2023 8310-5 [facility] Body Temperature Value=97.3 Units= F 02/01/2023 8462-4 [facility] Blood Pressure-Diastolic Value=81 Un its=mmHg 02/01/2023 8480-6 [facility] Blood Pressure-Systolic Qmlzk=367 Un its=mmHg 02/01/2023 2339-0 [facility] Blood Sugar Value=20.0 Units=mg/dL 02/01/2023 83035-1 [facility] Pain Level Value=0.0 02/01/2023 90485-5 [facility] Weight Qxpmz=710.6 Units=Lbs 8302-2 [facility] Height Value=60.0 Units=Inches 12/18/2022
--- OUTSIDE RECORDS SUMMARY | 2025-06-18 11:02 | XMS_ITS | Clinical Summary ---
Author Organization [facility] Physician Office Building [address] [place] [id number] Care Team Providers Care Hold Worker Name Role Phone Hollis Perez MD Primary Care Provider [phone] Tr Li MD Unavailable Allergies Active Allergy Reactions Criticality Noted Date Comments Morphine Mental status changes Low 03/06/2019 Vancomycin Redness Low 05/09/2023 Medications cetirizine (ZyrTEC) 10 mg tablet Take 1 tablet (10 mg total) by mouth daily 1 9 Active lisinopril (PRINIVIL,ZESTR IL) 10 mg tablet Take 0.5 tablets (5 mg total) by mouth daily 2 9 Active omeprazole (PriLOSEC) 40 mg capsule Take 1 capsule (40 mg total) by mouth 2 (two) times a day 1 9 Active folic acid (FOLVITE) 400 mcg tablet Take 1 tablet (400 mcg total) by mouth daily Active DULoxetine DR (CYMBALTA) 60 mg capsuleIndicati ons:take with 30 mg for total of 90 mg Take 1 capsule (60 mg total) by mouth daily Active DULoxetine DR (CYMBALTA) 30 mg capsuleIndicati ons:take with 60 mg for total of 90 mg Take 1 capsule (30 mg total) by mouth nightly Active cholecalciferol (cholecalcifero l) 1,000 unit (25 mcg) tablet Take 1 tablet (1,000 Units total) by mouth daily Active diclofenac XR (VOTAREN XR) 100 mg 24 hr tablet Take 1 tablet (100 mg total) by mouth 2 (two) times a day Active atorvastatin (LIPITOR) 20 mg tablet Take 1 tablet (20 mg total) by mouth daily 0 Active buPROPion XL (WELLBUTRIN XL) 150 mg 24 hr tablet Take 1 tablet (150 mg total) by mouth daily Active gabapentin (NEURONTIN) 100 mg capsule Take 1 capsule (100 mg total) by mouth 3 (three) times a day Active uxy-I5-kpu86-zi sq-cfw-swsz-bor 600 mg calcium- 800 unit-50 mg tablet Take 1 tablet by mouth daily Active vit 33-kfun-fdjkl-d sadler 29 mg iron-1 mg -250 mg combo pack Take 1 tablet by mouth daily Active docusate sodium (DOK) 100 mg tabletIndicatio ns:constipation Take 1 tablet (100 mg total) by mouth daily Active aspirin 81 mg enteric coated tablet Take 1 tablet (81 mg total) by mouth 2 (two) times a day for 14 days 28 tablet 3 Active cyclobenzaprine (FLEXERIL) 5 mg tabletIndicatio ns:Muscle Spasm Take 1 tablet (5 mg total) by mouth 3 (three) times a day as needed for muscle spasms 30 tablet 3 Active Additional Information Patient not taking.Reported on 03/05/2025 cyanocobalamin (Vitamin B-12) 500 mcg tabletIndicatio ns:Prevention of Vitamin B12 Deficiency Take 1 tablet (500 mcg total) by mouth daily Active ascorbic acid (vitamin C) 1,000 mg tablet Take 1 tablet (1,000 mg total) by mouth daily Active calcium carb/mag oxide/Cu/zinc (calcium-magnes vig-xykfbe-xehz ) tablet Take 1 tablet/capsule by mouth 3 (three) times a day Active meloxicam (MOBIC) 7.5 mg tablet Take 1 tablet (7.5 mg total) by mouth daily Patient unsure of dosage, instructed to bring the bottle in next visit to verify dosage. Active pregabalin (LYRICA) 25 mg capsule Take 1 capsule (25 mg total) by mouth 2 (two) times a day Active Active Problems Problem Noted Date Diagnosed Date Aftercare following right ankle joint replacemen t surgery 05/10/2023 Assessment & Plan (05/10/2023 3:51 AM CDT): Patient indicates she is undergone surgery on right ankle several weeks ago and is awaiting follow-up for next portion of surgical intervention Patient refers completing oral antibiotics recently as a part of management by her physicians in [facility] Physical examination identifies surgical site intact, trace discharge was noted on dressing on lateral aspect of surgical site, no active bleeding or other active discharge noted Continue supportive care TERRELL (acute kidney injury) 05/10/2023 Assessment & Plan (05/10/2023 3:52 AM CDT): Slight rise in BUN and creatinine levels from comparison to limited lab data in online record IV fluid Pending re-evaluation of BUN and creatinine levels with a.m. labs Left thigh pain 05/09/2023 Assessment & Plan (05/10/2023 3:49 AM CDT): Physical findings are inconclusive for swelling or bruising, grpz-ug-xxrtosmd pain elicited on palpation; slight range motion decreased on left hip noted versus right X-ray and CT imaging inconclusive Pain symptoms referred are disproportionate to physical findings Differential diagnosis includes muscle spasm, will provide baclofen trial and pending reassessment Pain management p.r.n. Orthopedic surgery consultation PTOT evaluation Social service for possible placement Chronic depression 08/12/2019 Electrocardiogram abnormal 08/12/2019 Fatigue 08/12/2019 Heart murmur 08/12/2019 Osteoarthritis 08/12/2019 Severe malnutrition 04/03/2019 Hypertension 04/02/2019 Hyperlipidemia 04/02/2019 Anxiety 04/02/2019 Anemia 04/02/2019 GERD (gastroesophageal reflux disease) 9 Lumbar spinal stenosis 04/02/2019 Surgical History Surgery Date Site/Laterality Comments TUBAL LIGATION ENDOMETRIAL ABLATION JOINT REPLACEMENT 11/05/2014 - 11/04/2015 Right knee Medical History Medical History Date Comments Hypertension GERD (gastroesophageal reflux disease) Arthritis Hypercholesteremia PONV (postoperative nausea and vomiting) Nightmares Anxiety Anemia Spinal stenosis of lumbar region Spondylolysis, lumbar region Family History Medical History Relation Name Comments Alcohol abuse Father Lung disease Father Stroke Father Breast cancer Mother Cancer Mother Relation Name Status Comments Father Mother Social History Tobacco Use Types Packs/Day Years Used Date Smoking Tobacco: Former Smokeless Tobacco: Never Tobacco Cessation:Counseling Given: Not Answered Alcohol Use Standard Drinks/Week Comments Yes 0 (1 standard drink = 0.6 oz pur e alcohol) rarely Social Connection and Isolation Panel Answer Date Recorded In a typical week, how many times do you talk on the phone with family, friends, or neighbors? Twice a week 05/14/20 How often do you get togethe r with friends or relatives? Once a week 05/14/2023 How often do you attend chur ch or yarsani services? 1 to 4 times per year 05/14/2023 Do you belong to any clubs o r organizations such as restorationism groups, unions, fraternal or athletic groups, or school groups? No 05/14/2023 How often do you attend meet ings of the clubs or organizations you belong to? Never 05/14/2023 Are you , , di vorced, , never , or living with a partner? 05/14/2023 AUDIT-C Answer Date Recorded Q1: How often do you have a drink containing alc ohol? Never 03/05/2025 Average Number of Drinks Not on file 025 Frequency of Binge Drinking Not on file 11/2024 Overall Financial Resource Strain (CARDIA) Answe r Date Recorded How hard is it for you to pa y for the very basics like food, housing, medical care, and heating? Not very hard 05/14/2023 PHQ-2 Answer Date Recorded PHQ-2 Score 0 06/28/2019 Hunger Vital Sign Answer Date Recorded Within the past 12 months, y ou worried that your food would run out before you got the money to buy more. Never true 05/14/20 23 Within the past 12 months, t he food you bought just didn't last and you didn't have money to get more. Never true 05/14/2023 PRAPARE - Transportation Answer Date Re corded In the past 12 months, has l ack of transportation kept you from medical appointments or from getting medications? No 05/05 In the past 12 months, has l ack of transportation kept you from meetings, work, or from getting things needed for daily living? No 05/14/2023 Housing Stability Vital Sign Answer Lavon e Recorded In the last 12 months, was t here a time when you were not able to pay the mortgage or rent on time? No 05/14/2023 In the last 12 months, how many places have you lived? 1 05/14/2023 In the last 12 months, was t here a time when you did not have a steady place to sleep or slept in a care home (including now)? No 05/14/2023 Personal Safety Answer Date Recorded Have you ever been in or are you currently in a harmful physical or emotional relationship or is someone making you feel afraid or unsafe? Denies 05/09/2023 Comments No Sex and Gender Information Value Date Recorded Sex Assigned at Not on file Legal Sex Female 11:41 AM CDT Gender Identity Not on file Sexual Orientation Not on file Obstetrics History Last Filed Vital Signs Vital Sign Reading Time Taken Comments Blood Pressure 156/71 03/05/2025 11:28 AM CDT Pulse 70 03/05/2025 11:28 AM CDT Temperature 36.4 C (97.6 F) 03/05/2025 11:28 AM CDT Respiratory Rate 20 03/05/2025 11:2 8 AM CDT Oxygen Saturation 97% 03/05/2025 11: 28 AM CDT Inhaled Oxygen Concentration - - Weight 69.8 kg (153 lb 12.8 oz) 025 11:28 AM CDT Height 152.4 cm (5') 03/05/2025 11:28 AM CDT Body Mass Index 30.04 03/05/2025 11:28 AM CDT Plan of Treatment Health Maintenance Due Date Last Done Comments Osteoporosis Screening-Bone Density Scan 1940 DTaP/Tdap/Td Vaccine (1 - Tdap) 1953 Hepatitis B Screening 02/19/1960 Zoster Vaccine (1 of 2) 02/19/1992 Well Visit 65+ 2007 Depression Screening 03/27/2020 03/27/2019, 03/27/20 19 Fall Risk Assessment 05/16/2024 05/16/2023 Influenza Vaccine (#1) 2025 0, 08/26/2019, 08/16/2018, Additional history exists Pneumococcal vaccine 65+ Completed 020, 09/10/2017, 09/08/2017 Medical Devices Implanted Type Area Physician Assistant Psychiatry Device Identifier Shelf Expiration Date Model / Serial / Lot Depuy Synthes Spine [id number] Viper Prime 6mm 45mm Polyaxial Extend Tab Spine Screw Bone - [id number] Implanted:Qty: 4 on 04/02/2019 by Con Hernandez MD at [facility] N/A: Spine Lumbar Depuy Synthes Spine [id number] / / Depuy Spine [id number] Viper 2 35mm Lordotic Prebent Nikita Spinal Titanium Nonsterile Mis - [id number] Implanted:Qty: 2 on 04/02/2019 by Con Hernandez MD at [facility] N/A: Spine Lumbar Depuy Spine [id number] / / Depuy Spine [id number] 5.5mm 1 Inner Spine Screw Set Titanium Nonsterile Viper - [id number] Implanted:Qty: 4 on 04/02/2019 by Con Hernandez MD at [facility] N/A: Spine Lumbar Depuy Spine [id number] / / Depuy Spine [id number] Concorde [id number] Radiopaque 5d Lordotic Bullet Nose Cage Spinal Latex Free - [id number] Implanted:Qty: 2 on 04/02/2019 by Con Hernandez MD at [facility] N/A: Spine Lumbar Depuy Spine [id number] / / Insurance MEDICARE COMMERCIAL GENERIC MEDICARE COMMERCIAL GENERIC MEDICARE Advance Directives For more information, please contact: [phone] * LIMITED - No CPR (Latest Code Status on File) Date Activated Date Inactivated Comments 05/10/2023 3:32 AM 05/16/2023 6:30 PM Question Answer Comments Provide aggressive medical m anagement before a full cardiopulmonary arrest occurs. Use antibiotics, IV Fluids, and medical treatment unless specifically selected below: No intubation * Full Code Date Activated Date Inactivated Comments 04/02/2019 7:29 PM 04/04/2019 7:50 PM Care Teams Hold Worker Relationship Specialty Start Date End Date Hollis Perez MD PCP - General Internal Medicine 02/26/19 Tr Li MD [address] [facility] [place] [address] Consulting Physician Pain Management 09/20/23
--- OUTSIDE RECORDS SUMMARY | 2025-06-18 11:02 | XMS_ITS | Clinical Summary ---
Author Organization [facility] Address [address] [place] [address] Care Team Providers Care Training Consultant Name Role Phone Wali Aguilar MD Unavailable [phone] Chivo Lee MD Primary Care Provider [phone] Source Comments [facility],non-owned Affiliates and Associated Physician Practices is amultiple site organization consisting of ambulatory clinics and hospital sitesin [place], [place], [place] and [place]. This disclosure is being madepursuant to the Care Everywhere program and may not contain all information available regarding this patient. Last updated 18.[facility] Allergies Active Allergy Reactions Criticality Noted Date Comments Morphine Unknown Low 03/06/2019 Medications * Be aware that medications may not be up to date on this document. Alwaysverify current medications with the patient. atorvastatin (LIPITOR) 10 MG tablet Take 10 mg by mouth once daily. Active cetirizine (ZYRTEC) 10 MG tablet Take 10 mg by mouth once daily. Active DULoxetine (CYMBALTA) 60 MG capsule Take 60 mg by mouth once daily. Active fluticasone propionate (FLONASE) 50 MCG/ACT nasal spray [place] 2 Sprays into each nostril once daily as needed. Active Flaxseed, Linseed, (FLAXSEED OIL) 1200 MG CAPS Take by mouth 2 times daily. Active folic acid 400 MCG tablet Take 400 mcg by mouth once daily. Active PARoxetine (PAXIL) 40 MG tablet 10/12/2014 Active melatonin 1 MG tablet Take 1 mg by mouth at bedtime. Active hydrocodone-laci taminophen (NORCO) 5-325 MG tablet Take 1 Tab by mouth every 6 hours as needed for Pain. 50 Tab 0 02/08/2015 Active diclofenac sodium XR 24hr (VOLTAREN XR) 100 MG tablet Take 1 Tab by mouth 2 times daily LAST REFILL UNTIL SEEN IN OFFICE 60 Tab 11/21/2016 Active Active Problems Problem Noted Date Diagnosed Date Presence of right artificial knee joint 07/26/20 20 Heart murmur 08/12/2019 Fatigue 08/12/2019 Electrocardiogram abnormal 08/12/2019 Chronic depression 08/12/2019 Severe malnutrition 04/03/2019 Hypertension 04/02/2019 Lumbar spinal stenosis 04/02/2019 Hyperlipidemia 04/02/2019 GERD (gastroesophageal reflux disease) 9 Anxiety 04/02/2019 Anemia 04/02/2019 Osteoarthrosis involving lower leg 03/02/2015 Overview (01/29/2016): 2015 IMO Updt Knee joint replacement by other means 03/02/2015 Social History Tobacco Use Types Packs/Day Years Used Date Smoking Tobacco: Former Smokeless Tobacco: Never Alcohol Use Standard Drinks/Week Comments Yes 0 (1 standard drink = 0.6 oz pur e alcohol) Comments No Sex and Gender Information Value Date Recorded Sex Assigned at Not on file Legal Sex Female 11:30 AM CDT Gender Identity Not on file Sexual Orientation Not on file Last Filed Vital Signs Vital Sign Reading Time Taken Comments Blood Pressure 122/62 01/17/2015 7:39 AM CDT Pulse 90 01/17/2015 7:39 AM CDT Temperature 36.7 C (98 F) 01/17/2015 7:39 AM CDT Respiratory Rate 16 01/17/2015 7:39 AM CDT Oxygen Saturation 98% 01/17/2015 7:39 AM CDT Inhaled Oxygen Concentration - - Weight 72.6 kg (160 lb) 07/26/2020 2:49 PM CDT Height 157.5 cm (5' 2) 07/26/2020 2:49 PM CDT Body Mass Index 29.26 07/26/2020 2:49 PM CDT Plan of Treatment Health Maintenance Due Date Last Done Comments BONE DENSITY TESTING 1940 MEDICARE AWV 12 MONTHS 1942 DTAP/TDAP/TD VACCINES (1 - Tdap) 1961 PNEUMOCOCCAL VACCINE 50+ (1 of 1 - PCV) 02/19/1992 ZOSTER VACCINE (1 of 2) 02/19/1992 Respiratory Syncytial Virus (RSV) Vaccine Pt: or over 60 yrs (1 - 1-dose 75+ series) 2017 COVID-19 VACCINE (1 - 2023-2 5 season) 2024 DEPRESSION SCREENING 11/05/2024 INFLUENZA VACCINE (#1) 2025 HEPATITIS B VACCINE Aged Out No longe r eligible based on patient's age to complete this topic HIB VACCINE Aged Out No longer eligi ble based on patient's age to complete this topic HPV VACCINE Aged Out No longer eligi ble based on patient's age to complete this topic MENINGOCOCCAL (Group B) VACC INE SHARED DECISION-MAKING Aged Out No longer eligibl e based on patient's age to complete this topic MENINGOCOCCAL GROUPS A/C/Y/W VACCINE Aged Out No longer eligible b ased on patient's age to complete this topic Medical Devices Implanted Type Area Switchboard Manager Device Identifier Shelf Expiration Date Model / Serial / Lot Terell Bone Cornell Hv Implanted:Qty: 1 on 01/14/2015 by Wali Aguilar MD at [facility] Right: Knee [employer] 09/03/2016 [id number] / / [id number] Ins Kn Vangurd Fem Cocr R-Intlok 65.0mm Implanted:Qty: 1 on 01/14/2015 by Wali Aguilar MD at [facility] Right: [employer]nee [employer] 12/31/2024 [id number] / / [id number] Butn Pat Arcom Wire Polyeth Sm 31 X 8mm Implanted:Qty: 1 on 01/14/2015 by Wali Aguilar MD at [facility] Right: [employer]nee [employer] 12/04/2019 [id number] / / [id number] Tibial I Beam Fix Bar 71mm Implanted:Qty: 1 on 01/14/2015 by Wali Aguilar MD at [facility] Right: Knee [employer] 06/03/2024 [id number] / / [id number] Brdg Tib Cici Stbl Implanted:Qty: 1 on 01/14/2015 by Wali Aguilar MD at [facility] Right: Knee [employer] 11/03/2019 [id number] / / [id number] Insurance MEDICARE COMMERCIAL GENERIC * Guarantor: HOLLY HANEY Account Type Relation to Patient Date of Phone Billing Address Personal/Family [address] [address] MEDICARE MEDICARE SUPPLEMENT PAYOR GENERIC * Guarantor: HOLLY HANEY Account Type Relation to Patient Date of Phone Billing Address Personal/Family [address] [address] MEDICARE MEDICARE SUPPLEMENT PAYOR GENERIC * Guarantor: HOLLY HANEY Account Type Relation to Patient Date of Phone Billing Address Personal/Family [address] [address] MEDICARE MEDICARE SUPPLEMENT PAYOR GENERIC Advance Directives * Full Code (Latest Code Status on File) Date Activated Date Inactivated Comments 01/14/2015 10:38 AM 01/17/2015 2:09 PM Care Teams Training Consultant Relationship Specialty [place] [id number] [place] [id number] PCP - General Internal Medicine 12/08/14 [place] [id number] [address] Orthopedic Surgery 12/08/14
--- OUTSIDE RECORDS SUMMARY | 2025-06-18 11:02 | XMS_ITS | Continuity of Care Document ---
Author Name [facility] Address [address] [place] [address] [address] [facility] Care Team Providers Care Home Care Companion Name Role Phone [facility] Unavailable Unavailable Problems Problem Status Onset Date Problem Type Date of Resolution Comments Source Past history of procedure (context-dependent category) 05/29/2025 Diagnosis Closed fracture of lower leg (disorder) 05/29/2025 Diagnosis Follow-up status (finding) 11/19/2024 Diagnosis Ankylosis of joint (disorder) 07/17/2024 Diagnosis Procedure carried out on subject (situation) 07/07/2024 Diagnosis Open wound of ankle (disorder) 06/24/2024 Diagnosis Closed fracture of lower leg (disorder) 06/20/2024 Diagnosis Problem Condition Arthritis (disorder) Active Condition Gastroesophageal reflux disease (disorder) Active Condition Hypercholesterolemia (disorder) Active Condition Hypertensive disorder, systemic arterial (disorder) Active Condition Neuropathy (disorder) Active Condition History of - arthrodesis (context-dependent category) Diagnosis Preprocedural examination done Diagnosis Ankle joint pain (finding) Diagnosis Follow-up orthopedic assessment (finding) Diagnosis Procedure carried out on subject (situation) Diagnosis Asthenia (finding) Diagnosis Fatigue (finding) Diagnosis Complication of procedure (disorder) Diagnosis Complication of surgical procedure (disorder) Diagnosis Place of occurrence of accident or poisoning (environment) Diagnosis Essential hypertension (disorder) Diagnosis Hyperlipidemia (disorder) Diagnosis Gastroesophageal reflux disease without esophagitis (disorder) Diagnosis Detrusor overactivity Diagnosis History of calculus of kidney (situation) Diagnosis Artificial knee joint present (finding) Diagnosis Long-term current use of drug therapy (situation) Diagnosis Allergy to penicillin (disorder) Diagnosis Drug allergy (disorder) Diagnosis Drug allergy (disorder) Diagnosis Closed fracture of shaft of right tibia (disorder) Diagnosis Fracture of posterior process of talus (disorder) Diagnosis Anemia (disorder) Diagnosis Operation wound disruption (disorder) Diagnosis Pure hypercholesterolemia (disorder) Diagnosis Osteoarthritis (disorder) Diagnosis Polyneuropathy (disorder) Diagnosis Anxiety disorder (disorder) Diagnosis Depressive disorder (disorder) Diagnosis Menopause present (finding) Diagnosis Wound dehiscence (finding) Diagnosis Muscular ossification (disorder) Diagnosis Epidermoid cyst (disorder) 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) Diagnosis Complication of implant (disorder) Diagnosis History of - psychiatric disorder (context-dependent category) Diagnosis Insomnia (disorder) Diagnosis Irritable colon (disorder) Diagnosis Disease of bone (disorder) Diagnosis History of - TIA (context-dependent category) Diagnosis Encounter for other orthopedic aftercare Active Diagnosis Encounter for other preprocedural examination Active Diagnosis Encounter for fitting and adjustment of other specified devices Active Diagnosis Infection following a procedure, unspecified, initial encounter Active Diagnosis Disruption of external operation (surgical) wound, not elsewhere classified, initial encounter Active Diagnosis Other complications of procedures, not elsewhere classified, initial encounter Active Diagnosis Medications Medication Details Route Status Patient Instructions Ordering Provider Order Date Source Calcium Carbonate 1500 MG Oral Tablet 1,200 mg = 2 Tablet(s), Oral, Daily, # 60 Tablet(s), Refill(s) 0, Pharmacy: [facility], 152.4, cm, 06/24/24 19:41:00 CDT, Height (cm), kg, 06/24/24 19:41:00 CDT, Weight (kg), 67.27 Active 0[facility] Allergies, Adverse Reactions, Alerts Substance Category Reaction Severity Reaction type Status Date Reported Comments Source doxycycline Assertion Unknown Propensity to adverse reactions to drug Active [facility] vancomycin Assertion Unknown Propensity to adverse reactions to drug Active [facility] ceFAZolin Assertion Drug allergy Active [facility] Assertion Drug allergy Active [facility] ceFAZolin<blackmon p>1</sup> Assertion Unknown Propensity to adverse reactions to drug Active [facility] 03/2023 [facility] cefTRIAXone< sup>2</sup> Assertion Unknown Propensity to adverse reactions to drug Active [facility] 03/2023 [facility] amoxicillin- clavulanate< sup>3</sup> Assertion Unknown Propensity to adverse reactions to drug Active [facility] 03/2023 [facility] amoxicillin- clavulanate Assertion Drug allergy Active [facility] Augmentin Assertion Drug allergy Active [facility] cefTRIAXone Assertion Drug allergy Active [facility] cefTRIAXone< sup>1</sup> Assertion Unknown Propensity to adverse reactions to drug Active [facility] 03/2023 [facility] amoxicillin- clavulanate< sup>2</sup> Assertion Unknown Propensity to adverse reactions to drug Active [facility] 03/2023 [facility] ceFAZolin<blackmon p>3</sup> Assertion Unknown Propensity to adverse reactions to drug Active [facility] 03/2023 [facility] cefTRIAXone< sup>3</sup> Assertion Unknown Propensity to adverse reactions to drug Active [facility] 03/2023 [facility] amoxicillin- clavulanate< sup>1</sup> Assertion Unknown Propensity to adverse reactions to drug Active [facility] 03/2023 [facility] ceFAZolin<blackmon p>2</sup> Assertion Unknown Propensity to adverse reactions to drug Active [facility] 03/2023 [facility] Results Order Name Results Value Reference Range Date Interpretation Comments Source XR Foot Right XR Foot Right XR General Diagnostic Accession # Exam Date/Time Procedure Ordering Provider [id number] 05/29/2025 10:56 CDT XR Foot Right J Luis Rosas MD Reason For Exam (XR Foot Right) continued RLE pain Report EXAMINATIO N: XR Ankle Right, XR Foot Right INDICATION : continued RLE pain VIEWS: 3 views right ankle, 3 views right foot COMPARISON : X-ray right ankle 11/19/2024, x-ray right foot 02/16/2023 FINDINGS: There is increased lucency surroundin g the intramedul kate mirela. No acute fractures or dislocatio ns of the ankle or foot. Redemonstr ated distal fibular resection and diffuse bony deminerali zation. No significan t soft tissue abnormalit ies. Hammertoe deformitie s of the second and third toes. . Mature fusion across the ankle joint identified . Moderate fusion across the subtalar joint. IMPRESSION : Fusion of the ankle and subtalar joint. Probable loosening of the intramedul kate mirela. I have personally reviewed the images and attest to the contents of this report. * * *Final Report* * * Electronic ally Signed by: Navin Ramos MD Signed on: 05/29/25 16:11 05/29 10:40 :21 [facility] XR Ankle Right XR Ankle Right XR General Diagnostic Accession # Exam Date/Time Procedure Ordering Provider [id number] 05/29/2025 10:56 CDT XR Ankle Right J Luis Rosas MD Reason For Exam (XR Ankle Right) continued RLE pain Report EXAMINATIO N: XR Ankle Right, XR Foot Right INDICATION : continued RLE pain VIEWS: 3 views right ankle, 3 views right foot COMPARISON : X-ray right ankle 11/19/2024, x-ray right foot 02/16/2023 FINDINGS: There is increased lucency surroundin g the intramedul kate mirela. No acute fractures or dislocatio ns of the ankle or foot. Redemonstr ated distal fibular resection and diffuse bony deminerali zation. No significan t soft tissue abnormalit ies. Hammertoe deformitie s of the second and third toes. . Mature fusion across the ankle joint identified . Moderate fusion across the subtalar joint. IMPRESSION : Fusion of the ankle and subtalar joint. Probable loosening of the intramedul kate mirela. I have personally reviewed the images and attest to the contents of this report. * * *Final Report* * * Electronic ally Signed by: Navin Ramos MD Signed on: 05/29/25 16:11 05/29 10:40 :21 [facility] Surgical Report Surgical Report SURGICAL PATHOLOGY REPORT Patient Name: ISHMAEL MEI Specimen Number: [id number] Patient Collection Date: 01/20/2025 Submitting Physician: J Luis Rosas M.D Signout Date: 01/21/2025 Specimen(s ) Received RIGHT FOOT MASS ======== FINAL DIAGNOSIS: SOFT TISSUE, RIGHT FOOT, MASS, BIOPSY: SMALL BENIGN SQUAMOUS EPITHELIAL LINED CYST WITH DENSE KERATIN HYPERKERAT OTIC SQUAMOUS EPITHELIUM WITH SUBEPITHEL IAL FIBROSIS NEGATIV FOR MALIGNANCY By this signature, I attest that the above diagnosis is based upon my personal examinatio n of the tissue and slides (and/or other material indicated in the diagnosis) , per policy. A resident was involved in the pathologic evaluation of this case, I have reviewed and edited the findings of the resident. Umang Espana, DO Electronic ally Signed Out ======== History NOT PROVIDED ON THE REQUISITIO N Gross Descriptio n In formalin labeled 'right foot mass' is a 0.3 x 0.3 x 0.3 cm spherical piece of dobson-white fibrous tissue, and a 1.8 x 0.5 x 0.3 cm irregular and unoriented piece of dobson skin. No discrete epidermal lesions are identified , and the piece of skin is inked green. The skin is serially sectioned and all is submitted entirely in 1A. (IGGY Justin (ASCP)) KM The performanc e characteri stics of the immunohist ochemical stains cited in this report (if any) were determined by the [facility] Department of Pathology. They have not been cleared or approved by the U.S. Food and Drug Administra tion. The FDA has determined that such clearance or approval is not necessary. This test is for clinical purposes. It should not be regarded as investigat ional or for research. This laboratory is certified under the Clinical Laboratory Improvemen t Amendments of 1988 (CLIA) as qualified to perform high complexity clinical laboratory testing. Unless gross-only is specified in the diagnosis, the final diagnosis for each specimen is based on a microscopi c examinatio n of histologic sections of the tissue from each specimen. 01/20 12:20 :00 Missing Attachment [id number] can be viewed in source system [facility] XR C-Arm XR C-Arm XR General Diagnostic Accession # Exam Date/Time Procedure Ordering Provider [id number] 01/20/2025 12:41 CDT XR C-Arm Lisa GRIMM, Unruly Brown Reason For Exam (XR C-Arm) OR Report OR C-arm case. Exam performed. No report to be issued. I have personally reviewed the images and attest to the contents of this report. * * *Final Report* * * Electronic ally Signed by: [email or web address], PS360 Signed on: 01/20/25 12:51 01/20 11:24 :46 [facility] XR Ankle Right XR Ankle Right XR General Diagnostic Accession # Exam Date/Time Procedure Ordering Provider [id number] 11/19/2024 13:14 [employer] XR Ankle Right J Luis Rosas MD Reason For Exam (XR Ankle Right) s/p ankle surgery Report EXAMINATIO N: XR Ankle Right INDICATION : s/p ankle surgery VIEWS: 3 COMPARISON : 09/03/2024 IMPRESSION : Stable ankle joint and hindfoot arthrodesi s with intact hardware. Stable resection distal fibula. Diffuse osteopenia . No acute fracture. I have personally reviewed the images and attest to the contents of this report. * * *Final Report* * * Electronic ally Signed by: Naseem GRIMM, Pavan Le Signed on: 11/19/24 13:24 11/19 13:01 :28 [facility] HEMATOLOGY PROFILES WBC 5.40 x10(9)/L 3.50 - 10.50 06/28 06:23 :00 [facility] HEMATOLOGY PROFILES RBC 2.99 x10(12)/L 3.90 - 5.03 06/28 06:23 :00 [facility] HEMATOLOGY PROFILES HGB 7.7 g/dL 12.0 - 15.5 06/28 06:23 :00 Interpretive Data: Rlyvpz-ve-dnl e transgender patients on testosterone therapy should have results assessed using the male reference range. Jdps-tu-tuvah e transgender patients on hormone-modul ating therapy clinical judgment is advisedfor assessment. [facility] HEMATOLOGY PROFILES HCT 25.7 % 34.9 - 44.5 06/28 06:23 :00 Interpretive Data: Humsmv-bi-hpf e transgender patients on testosterone therapy should have results assessed using the male reference range. Lbuw-xq-kniqd e transgender patients on hormone-modul ating therapy clinical judgment is advisedfor assessment. [facility] HEMATOLOGY PROFILES MCV 86.0 fL 81.6 - 98.3 06/28 06:23 :00 [facility] HEMATOLOGY PROFILES MCH 25.8 pg 26.0 - 33.0 06/28 06:23 :00 [facility] HEMATOLOGY PROFILES MCHC 30.0 g/dL 32.0 - 36.0 06/28 06:23 :00 [facility] HEMATOLOGY PROFILES RDW CV 15.0 % 11.9 - 15.5 06/28 06:23 :00 [facility] HEMATOLOGY PROFILES RDW SD 47.4 fL 36.4 - 46.3 06/28 06:23 :00 [facility] HEMATOLOGY PROFILES PLT 165 x10(9)/L 150 - 450 06/28 06:23 :00 [facility] HEMATOLOGY PROFILES MPV 13.2 8.0 - 12.0 06/28 06:23 :00 [facility] HEMATOLOGY PROFILES % Nucleated RBCs 0.0 % 06/28 06:23 :00 [facility] HEMATOLOGY PROFILES Absolute Nucleated RBCs 0.0 x10(9)/L 0.0 - 0.0 06/28 06:23 :00 Interpretive Data: Normal values not established in patients less than 18 years old. [facility] HEMATOLOGY PROFILES % Neutrophils 49.2 % 06/28 06:23 :00 [facility] HEMATOLOGY PROFILES % Lymphocytes 37.8 % 06/28 06:23 :00 [facility] HEMATOLOGY PROFILES % Monocytes 9.3 % 06/28 06:23 :00 [facility] HEMATOLOGY PROFILES % Eosinophils 3.1 % 06/28 06:23 :00 [facility] HEMATOLOGY PROFILES % Basophils 0.4 % 06/28 06:23 :00 [facility] HEMATOLOGY PROFILES % Immature Granulocytes 0.20 % 0.02 - 0.42 06/28 06:23 :00 [facility] HEMATOLOGY PROFILES Absolute Granulocytes 2.66 x10(9)/L 1.70 - 7.00 06/28 06:23 :00 [facility] HEMATOLOGY PROFILES Abs Lymphocytes 2.04 x10(9)/L 0.90 - 2.90 06/28 06:23 :00 [facility] HEMATOLOGY PROFILES Abs Monocytes 0.50 x10(9)/L 0.30 - 0.90 06/28 06:23 :00 [facility] HEMATOLOGY PROFILES Abs Eosinophils 0.17 x10(9)/L 0.05 - 0.50 06/28 06:23 :00 [facility] HEMATOLOGY PROFILES Abs Basophils 0.02 x10(9)/L 0.00 - 0.30 06/28 06:23 :00 [facility] HEMATOLOGY PROFILES Abs Immature Granulocytes 0.01 x10(9)/L 0.00 - 0.03 06/28 06:23 :00 [facility] GENERAL CHEMISTRY BUN 22 mg/dL 06/27 05:45 :00 [facility] GENERAL CHEMISTRY Calcium 9.7 mg/dL 8.3 - 10.6 06/27 05:45 :00 [facility] GENERAL CHEMISTRY Glucose Lvl 86 mg/dL 70 - 139 06/27 05:45 :00 [facility] GENERAL CHEMISTRY Chloride 109 mmol/L 98 - 107 06/27 05:45 :00 [facility] GENERAL CHEMISTRY Sodium 142 mmol/L 136 - 145 06/27 05:45 :00 [facility] GENERAL CHEMISTRY Potassium 4.4 mmol/L 3.5 - 5.1 06/27 05:45 :00 [facility] GENERAL CHEMISTRY CO2 27 mmol/L 20 - 31 06/27 05:45 :00 [facility] GENERAL CHEMISTRY Anion gap 10 mmol/L 0 - 20 06/27 05:45 :00 [facility] GENERAL CHEMISTRY Creatinine, standardized 1.1 mg/dL 0.5 - 1.0 06/27 05:45 :00 Interpretive Data: Oedvhj-iy-ijs e transgender patients on testosterone therapy should have results assessed using the male reference range. Dhum-ya-ixikx e transgender patients on hormone-modul ating therapy clinical judgment is advisedfor assessment. [facility] GENERAL CHEMISTRY Estimated GFR for Adults 52 mL/min/1.7 3m 06/27 05:45 :00 Interpretive Data: Changed to CKD-EPI 2020 on 2020. [facility] GENERAL CHEMISTRY Estimated GFR for peds Not calculated 06/27 05:45 :00 Interpretive Data: The estimated GFR was calculated using the B kurt Sumner equation (2009) . Reference: Pediatric GFR calculator at [employer] Website. [facility] HEMATOLOGY PROFILES % Nucleated RBCs 0.0 % 06/27 05:45 :00 [facility] HEMATOLOGY PROFILES Absolute Nucleated RBCs 0.0 x10(9)/L 0.0 - 0.0 06/27 05:45 :00 Interpretive Data: Normal values not established in patients less than 18 years old. [facility] HEMATOLOGY PROFILES % Neutrophils 50.0 % 06/27 05:45 :00 [facility] HEMATOLOGY PROFILES % Lymphocytes 36.6 % 06/27 05:45 :00 [facility] HEMATOLOGY PROFILES % Monocytes 9.9 % 06/27 05:45 :00 [facility] HEMATOLOGY PROFILES % Eosinophils 2.6 % 06/27 05:45 :00 [facility] HEMATOLOGY PROFILES % Basophils 0.5 % 06/27 05:45 :00 [facility] HEMATOLOGY PROFILES % Immature Granulocytes 0.40 % 0.02 - 0.42 06/27 05:45 :00 [facility] HEMATOLOGY PROFILES Absolute Granulocytes 2.74 x10(9)/L 1.70 - 7.00 06/27 05:45 :00 [facility] HEMATOLOGY PROFILES Abs Lymphocytes 2.00 x10(9)/L 0.90 - 2.90 06/27 05:45 :00 [facility] HEMATOLOGY PROFILES Abs Monocytes 0.54 x10(9)/L 0.30 - 0.90 06/27 05:45 :00 [facility] HEMATOLOGY PROFILES Abs Eosinophils 0.14 x10(9)/L 0.05 - 0.50 06/27 05:45 :00 [facility] HEMATOLOGY PROFILES Abs Basophils 0.03 x10(9)/L 0.00 - 0.30 06/27 05:45 :00 [facility] HEMATOLOGY PROFILES Abs Immature Granulocytes 0.02 x10(9)/L 0.00 - 0.03 06/27 05:45 :00 [facility] HEMATOLOGY PROFILES WBC 5.47 x10(9)/L 3.50 - 10.50 06/27 05:45 :00 [facility] HEMATOLOGY PROFILES RBC 2.89 x10(12)/L 3.90 - 5.03 06/27 05:45 :00 [facility] HEMATOLOGY PROFILES HGB 7.6 g/dL 12.0 - 15.5 06/27 05:45 :00 Interpretive Data: Nvxzwi-ov-ltw e transgender patients on testosterone therapy should have results assessed using the male reference range. Wydp-sd-orwiq e transgender patients on hormone-modul ating therapy clinical judgment is advisedfor assessment. [facility] HEMATOLOGY PROFILES HCT 24.7 % 34.9 - 44.5 06/27 05:45 :00 Interpretive Data: Fhumhx-fb-njq e transgender patients on testosterone therapy should have results assessed using the male reference range. Obkt-sm-qjkpx e transgender patients on hormone-modul ating therapy clinical judgment is advisedfor assessment. [facility] HEMATOLOGY PROFILES MCV 85.5 fL 81.6 - 98.3 06/27 05:45 :00 [facility] HEMATOLOGY PROFILES MCH 26.3 pg 26.0 - 33.0 06/27 05:45 :00 [facility] HEMATOLOGY PROFILES MCHC 30.8 g/dL 32.0 - 36.0 06/27 05:45 :00 [facility] HEMATOLOGY PROFILES RDW CV 14.9 % 11.9 - 15.5 06/27 05:45 :00 [facility] HEMATOLOGY PROFILES RDW SD 46.3 fL 36.4 - 46.3 06/27 05:45 :00 [facility] HEMATOLOGY PROFILES MPV 13.5 8.0 - 12.0 06/27 05:45 :00 [facility] HEMATOLOGY PROFILES PLT 165 x10(9)/L 150 - 450 06/27 05:45 :00 [facility] GENERAL CHEMISTRY BUN 17 mg/dL 8 - 06/26 05:51 :00 [facility] GENERAL CHEMISTRY Calcium 9.7 mg/dL 8.3 - 10.6 06/26 05:51 :00 [facility] GENERAL CHEMISTRY Glucose Lvl 91 mg/dL 70 - 139 06/26 05:51 :00 [facility] GENERAL CHEMISTRY Chloride 109 mmol/L 98 - 107 06/26 05:51 :00 [facility] GENERAL CHEMISTRY Sodium 141 mmol/L 136 - 145 06/26 05:51 :00 [facility] GENERAL CHEMISTRY Potassium 4.4 mmol/L 3.5 - 5.1 06/26 05:51 :00 [facility] GENERAL CHEMISTRY CO2 26 mmol/L 20 - 31 06/26 05:51 :00 [facility] GENERAL CHEMISTRY Anion gap 10 mmol/L 0 - 20 06/26 05:51 :00 [facility] GENERAL CHEMISTRY Creatinine, standardized 1.1 mg/dL 0.5 - 1.0 06/26 05:51 :00 Interpretive Data: Txcymo-nx-lhh e transgender patients on testosterone therapy should have results assessed using the male reference range. Qbbx-lg-iwsyz e transgender patients on hormone-modul ating therapy clinical judgment is advisedfor assessment. [facility] GENERAL CHEMISTRY Estimated GFR for Adults 52 mL/min/1.7 3m 06/26 05:51 :00 Interpretive Data: Changed to CKD-EPI 2020 on 2020. [facility] GENERAL CHEMISTRY Estimated GFR for peds Not calculated 06/26 05:51 :00 Interpretive Data: The estimated GFR was calculated using the B kurt Sumner equation (2009) . Reference: Pediatric GFR calculator at [employer] Website. [facility] HEMATOLOGY PROFILES WBC 5.95 x10(9)/L 3.50 - 10.50 06/26 05:51 :00 [facility] HEMATOLOGY PROFILES RBC 3.00 x10(12)/L 3.90 - 5.03 06/26 05:51 :00 [facility] HEMATOLOGY PROFILES HGB 7.9 g/dL 12.0 - 15.5 06/26 05:51 :00 Interpretive Data: Jqmggd-ow-qxy e transgender patients on testosterone therapy should have results assessed using the male reference range. Lyuy-wt-lxxuj e transgender patients on hormone-modul ating therapy clinical judgment is advisedfor assessment. [facility] HEMATOLOGY PROFILES HCT 26.7 % 34.9 - 44.5 06/26 05:51 :00 Interpretive Data: Enzlmf-vf-xsx e transgender patients on testosterone therapy should have results assessed using the male reference range. Qsvh-tx-qhcwy e transgender patients on hormone-modul ating therapy clinical judgment is advisedfor assessment. [facility] HEMATOLOGY PROFILES MCV 89.0 fL 81.6 - 98.3 06/26 05:51 :00 [facility] HEMATOLOGY PROFILES MCH 26.3 pg 26.0 - 33.0 06/26 05:51 :00 [facility] HEMATOLOGY PROFILES MCHC 29.6 g/dL 32.0 - 36.0 06/26 05:51 :00 [facility] HEMATOLOGY PROFILES RDW CV 14.8 % 11.9 - 15.5 06/26 05:51 :00 [facility] HEMATOLOGY PROFILES RDW SD 47.8 fL 36.4 - 46.3 06/26 05:51 :00 [facility] HEMATOLOGY PROFILES PLT 159 x10(9)/L 150 - 450 06/26 05:51 :00 [facility] HEMATOLOGY PROFILES MPV 13.3 8.0 - 12.0 06/26 05:51 :00 [facility] HEMATOLOGY PROFILES % Nucleated RBCs 0.0 % 06/26 05:51 :00 [facility] HEMATOLOGY PROFILES Absolute Nucleated RBCs 0.0 x10(9)/L 0.0 - 0.0 06/26 05:51 :00 Interpretive Data: Normal values not established in patients less than 18 years old. [facility] HEMATOLOGY PROFILES % Neutrophils 59.0 % 06/26 05:51 :00 [facility] HEMATOLOGY PROFILES % Lymphocytes 27.7 % 06/26 05:51 :00 [facility] HEMATOLOGY PROFILES % Monocytes 9.7 % 06/26 05:51 :00 [facility] HEMATOLOGY PROFILES % Eosinophils 2.9 % 06/26 05:51 :00 [facility] HEMATOLOGY PROFILES % Basophils 0.5 % 06/26 05:51 :00 [facility] HEMATOLOGY PROFILES % Immature Granulocytes 0.20 % 0.02 - 0.42 06/26 05:51 :00 [facility] HEMATOLOGY PROFILES Absolute Granulocytes 3.51 x10(9)/L 1.70 - 7.00 06/26 05:51 :00 [facility] HEMATOLOGY PROFILES Abs Lymphocytes 1.65 x10(9)/L 0.90 - 2.90 06/26 05:51 :00 [facility] HEMATOLOGY PROFILES Abs Monocytes 0.58 x10(9)/L 0.30 - 0.90 06/26 05:51 :00 [facility] HEMATOLOGY PROFILES Abs Eosinophils 0.17 x10(9)/L 0.05 - 0.50 06/26 05:51 :00 [facility] HEMATOLOGY PROFILES Abs Basophils 0.03 x10(9)/L 0.00 - 0.30 06/26 05:51 :00 [facility] HEMATOLOGY PROFILES Abs Immature Granulocytes 0.01 x10(9)/L 0.00 - 0.03 06/26 05:51 :00 [facility] GENERAL CHEMISTRY BUN 15 mg/dL 8 - 23 06/25 10:04 :00 [facility] GENERAL CHEMISTRY Calcium 9.9 mg/dL 8.3 - 10.6 06/25 10:04 :00 [facility] GENERAL CHEMISTRY Glucose Lvl 88 mg/dL 70 - 139 06/25 10:04 :00 [facility] GENERAL CHEMISTRY Chloride 110 mmol/L 98 - 107 06/25 10:04 :00 [facility] GENERAL CHEMISTRY Sodium 142 mmol/L 136 - 145 06/25 10:04 :00 [facility] GENERAL CHEMISTRY Potassium 4.4 mmol/L 3.5 - 5.1 06/25 10:04 :00 [facility] GENERAL CHEMISTRY CO2 25 mmol/L 20 - 31 06/25 10:04 :00 [facility] GENERAL CHEMISTRY Anion gap 11 mmol/L 0 - 20 06/25 10:04 :00 [facility] GENERAL CHEMISTRY Creatinine, standardized 1.0 mg/dL 0.5 - 1.0 06/25 10:04 :00 Interpretive Data: Hilztq-lf-fwh e transgender patients on testosterone therapy should have results assessed using the male reference range. Xkla-eb-sypml e transgender patients on hormone-modul ating therapy clinical judgment is advisedfor assessment. [facility] GENERAL CHEMISTRY Estimated GFR for Adults 54 mL/min/1.7 3m 06/25 10:04 :00 Interpretive Data: Changed to CKD-EPI 2020 on 2020. [facility] GENERAL CHEMISTRY Estimated GFR for peds Not calculated 06/25 10:04 :00 Interpretive Data: The estimated GFR was calculated using the Mely hicks Sumner equation (2009) . Reference: Pediatric GFR calculator at [employer] Website. [facility] HEMATOLOGY PROFILES % Nucleated RBCs 0.0 % 06/25 10:04 :00 [facility] HEMATOLOGY PROFILES Absolute Nucleated RBCs 0.0 x10(9)/L 0.0 - 0.0 06/25 10:04 :00 Interpretive Data: Normal values not established in patients less than 18 years old. [facility] HEMATOLOGY PROFILES % Neutrophils 45.1 % 06/25 10:04 :00 [facility] HEMATOLOGY PROFILES % Lymphocytes 40.4 % 06/25 10:04 :00 [facility] HEMATOLOGY PROFILES % Monocytes 10.7 % 06/25 10:04 :00 [facility] HEMATOLOGY PROFILES % Eosinophils 3.0 % 06/25 10:04 :00 [facility] HEMATOLOGY PROFILES % Basophils 0.6 % 06/25 10:04 :00 [facility] HEMATOLOGY PROFILES % Immature Granulocytes 0.20 % 0.02 - 0.42 06/25 10:04 :00 [facility] HEMATOLOGY PROFILES Absolute Granulocytes 2.11 x10(9)/L 1.70 - 7.00 06/25 10:04 :00 [facility] HEMATOLOGY PROFILES Abs Lymphocytes 1.89 x10(9)/L 0.90 - 2.90 06/25 10:04 :00 [facility] HEMATOLOGY PROFILES Abs Monocytes 0.50 x10(9)/L 0.30 - 0.90 06/25 10:04 :00 [facility] HEMATOLOGY PROFILES Abs Eosinophils 0.14 x10(9)/L 0.05 - 0.50 06/25 10:04 :00 [facility] HEMATOLOGY PROFILES Abs Basophils 0.03 x10(9)/L 0.00 - 0.30 06/25 10:04 :00 [facility] HEMATOLOGY PROFILES Abs Immature Granulocytes 0.01 x10(9)/L 0.00 - 0.03 06/25 10:04 :00 [facility] HEMATOLOGY PROFILES WBC 4.68 x10(9)/L 3.50 - 10.50 06/25 10:04 :00 [facility] HEMATOLOGY PROFILES RBC 3.23 x10(12)/L 3.90 - 5.03 06/25 10:04 :00 [facility] HEMATOLOGY PROFILES HGB 8.7 g/dL 12.0 - 15.5 06/25 10:04 :00 Interpretive Data: Auoxpx-jq-urw e transgender patients on testosterone therapy should have results assessed using the male reference range. Iekm-sk-dvrsu e transgender patients on hormone-modul ating therapy clinical judgment is advisedfor assessment. [facility] HEMATOLOGY PROFILES HCT 28.8 % 34.9 - 44.5 06/25 10:04 :00 Interpretive Data: Ioqyrd-zo-jow e transgender patients on testosterone therapy should have results assessed using the male reference range. Ngqw-iq-grfcf e transgender patients on hormone-modul ating therapy clinical judgment is advisedfor assessment. [facility] HEMATOLOGY PROFILES MCV 89.2 fL 81.6 - 98.3 06/25 10:04 :00 [facility] HEMATOLOGY PROFILES MCH 26.9 pg 26.0 - 33.0 06/25 10:04 :00 [facility] HEMATOLOGY PROFILES MCHC 30.2 g/dL 32.0 - 36.0 06/25 10:04 :00 [facility] HEMATOLOGY PROFILES RDW CV 14.7 % 11.9 - 15.5 06/25 10:04 :00 [facility] HEMATOLOGY PROFILES RDW SD 47.1 fL 36.4 - 46.3 06/25 10:04 :00 [facility] HEMATOLOGY PROFILES PLT 162 x10(9)/L 150 - 450 06/25 10:04 :00 [facility] HEMATOLOGY PROFILES MPV 13.2 8.0 - 12.0 06/25 10:04 :00 [facility] GENERAL CHEMISTRY BUN 16 mg/dL 8 - 06/24 23:46 :00 [facility] GENERAL CHEMISTRY Calcium 10.2 mg/dL 8.3 - 10.6 06/24 23:46 :00 [facility] GENERAL CHEMISTRY Glucose Lvl 74 mg/dL 70 - 139 06/24 23:46 :00 [facility] GENERAL CHEMISTRY Chloride 108 mmol/L 98 - 107 06/24 23:46 :00 [facility] GENERAL CHEMISTRY Sodium 141 mmol/L 136 - 145 06/24 23:46 :00 [facility] GENERAL CHEMISTRY Potassium 4.0 mmol/L 3.5 - 5.1 06/24 23:46 :00 [facility] GENERAL CHEMISTRY CO2 26 mmol/L 20 - 06/24 23:46 :00 [facility] GENERAL CHEMISTRY Anion gap 11 mmol/L 0 - 20 06/24 23:46 :00 [facility] GENERAL CHEMISTRY Creatinine, standardized 1.0 mg/dL 0.5 - 1.0 06/24 23:46 :00 Interpretive Data: Gtpxoe-od-bkd e transgender patients on testosterone therapy should have results assessed using the male reference range. Pbae-gt-qjqgh e transgender patients on hormone-modul ating therapy clinical judgment is advisedfor assessment. [facility] GENERAL CHEMISTRY Estimated GFR for Adults 56 mL/min/1.7 3m 06/24 23:46 :00 Interpretive Data: Changed to CKD-EPI 2020 on 2020. [facility] GENERAL CHEMISTRY Estimated GFR for peds Not calculated 06/24 23:46 :00 Interpretive Data: The estimated GFR was calculated using the Mely hicks Sumner equation (2009) . Reference: Pediatric GFR calculator at [employer] Website. [facility] Culture FungusX No fungus isolated at 2 weeks. at 378 Hours 06/24 19:31 :00 [facility] Gram Stain Rare polys No organisms seen 06/24 19:31 :00 [facility] Culture AnaerobicX Rare Normal skin robert consisting of: Staphyloco ccus epidermidi s 06/24 19:31 :00 [facility] AFB Smear No Acid-fast bacilli seen on smear. 06/24 19:31 :00 [facility] Culture AFB with Smear Culture negative to date for Mycobacter ia. 06/24 19:31 :00 [facility] Consultation Notes Results Value Date Source Op/Procedure Note 01/20/2025 Operative note Indication for Surgery Patient is an 84-year-old who is well-known to me and had previous right hindfoot arthrodesis with revision. She has been doing relatively well but has been having pain on the bottom of her foot as well as around her heel. She associates it with the scar and with walking on uneven surfaces. 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 Partial nonunion, right subtalar joint Operation 1. Revision of right foot plantar scar with excision of previous scar tissue 2. Excision of right suspected plantar keratoma 3. Removal of heterotopic bone, right plantar calcaneus 4. Interpretation of intraoperative CT scan, right tibiotalar and subtalar joint Surgeon(s) Alison ruth I was present for all salinas and critical portions of this case. Anesthesia General Estimated Blood Loss see anesthesia report Findings As above Specimen(s) Soft tissue mass sent for pathology Complications none Technique The patient as seen in the preoperative holding area where the right lower extremity was marked. The procedure was confirmed on both the consent and with the patient. The patient was then taken back to the operating room placed the operating table. General anesthesia was induced. A timeout was performed to ensure correct operative site and procedure and the antibiotics had been given. The right leg was prepped and draped in sterile fashion. We began the procedure by ellipsing out the scar tissue to healthy bleeding and pliable tissue. Upon doing so we located a soft tissue mass in line with the incision that was suspected to be a possible plantar keratoma. It was fully excised and then sent for pathology. We continued to dissect down through the soft tissue until we encountered the underlying heterotopic ossification which was then removed en bloc. X-ray was brought in to confirm removal of the heterotopic ossification. We then thoroughly irrigated the wounds and closed with 3-0 nylon. We then performed an intraoperative 3D spin of the tibiotalar and subtalar joint. The CT scan was then evaluated intraoperatively and it was found that she had a solid tibiotalar arthrodesis and a partial arthrodesis of the subtalar joint with no signs of any hardware loosening or breakage. It appeared that at least 30% of the joint was a stable arthrodesis. A sterile dressing was then applied Post Operative Course 1. Patient will be discharged home today 2. She can weight-bear as tolerated 3. She will get postoperative x-rays 4. She does not need DVT prophylaxis 5. She will get her standard outpatient pain management protocol 6. She can follow-up in 2 to 3 weeks for wound check and to follow-up on pathology results 01/20/2025 Op/Procedure Note [id number] Aialfonso t Out-Room Date/Time: 15-AUG-2024 14:25 Primary Procedure: RIGHT LATERAL ANKLE SPLIT THICKNESS SKIN GRAFT FROM RIGHT THIGH Primary Surgeon: J Luis Rosas MD Fellow(s): N/A Resident(s): Mehran Mccoy MD Total estimated blood loss: 10MLS Pre Operative Diagnosis: RIGHT LATERAL ANKLE WOUND Post Operative Diagnosis: RIGHT LATERAL ANKLE WOUND Type of anesthesia: General Complications: N/A Specimen: N/A Implants: N/A 08/15/2024 Op/Procedure Note 08/15/2024 Operative note Indication for Surgery Patient is an 84-year-old female who is well-known to me. She previously went a rotational brevis flap we are bring her back today for split-thickness skin graft Preoperative Diagnosis Right rotational brevis flap with a healed Integra and wound edges and no signs of infection necessitating split-thickness skin graft Postoperative Diagnosis Same Operation Application of an 8 cm x 3 cmSplit-thickness skin graft Irrigation and sharp excisional debridement of right peroneus brevis flap including skin and subcutaneous tissue Application of a wound VAC to an area measuring 8 cm x 3 cm Surgeon(s) Alison Mccoy I was present for all salinas and critical portions of this case. Anesthesia General Estimated Blood Loss see anesthesia report Findings 8 x 3 cm defect Specimen(s) None Complications none Technique The patient as seen in the preoperative holding area where the right lower extremity was marked. The procedure was confirmed on both the consent and with the patient. The patient was then taken back to the operating room placed the operating table. General anesthesia was induced. A timeout was performed to ensure correct operative site and procedure and the antibiotics had been given. The right leg was prepped and draped in sterile fashion. We began by debriding the wound edges and the central aspect of the wound sharply to healthy bleeding tissue throughout. We then thoroughly irrigated the wounds. After thorough irrigation we then measured and hooked up our dermatome, selecting an appropriate size dermatome. We then harvested an 8 cm graft and placed to the mesher. The graft was then placed over the peroneus brevis, and was stapled down in place. A wound VAC was then applied to the area. Post Operative Course 1. Patient be discharged home today 2. She can weight-bear as tolerated 3. She will follow-up in 1 week for wound VAC removal 4. She will get her standard outpatient pain management protocol. 08/15/2024 Emergency Services Note Basic Informatio n Chief Complaint WOUND VAC BEEPING AND FULL. DUE TO BE REMOVED TOMORROW. History of Present Illness Patient is an 84-year-old female with a history of hypertension, hyperlipidemia, GERD and arthritis who underwent right peroneus brevis rotational flap and irrigation and sharp excisional debridement of right draining lateral ankle wound on 06/24 who presents to the ED for evaluation of wound VAC. Patient states she has wound VAC in place after undergoing recent surgery of her ankle and is scheduled to have this removed tomorrow. Yesterday afternoon she noticed that the wound VAC was beeping and not functioning properly. She called her orthopedic group who advised that she present to the ED for further evaluation. Patient denies having any increasing pain in the ankle and no fevers, nausea, vomiting or other reported symptoms. Review of Systems Except as documented in the HPI, remainder of review of systems is negative Physical Exam Vitals and Measurements T: 36.7 C HR: 90 RR: 18 BP: 124/68 SpO2: 98% WT: 67.6 kg General: Awake, alert, oriented, no acute distress Skin: Warm, dry and intact Head: Normocephalic, atraumatic Eye: PERRLA, EOMI ENT: Moist mucous membranes Neck: Trachea midline. Full ROM Cardiac: Regular rate and rhythm without murmurs, rubs or gallops Respiratory: Normal effort without any increased work of breathing. Lungs clear to auscultation bilaterally MSK: Moves all extremity spontaneously. Right lower extremity in a boot wrapped and wrapped in Chang wrap -removal of Chang wrap shows wound VAC in place to right lateral ankle without surrounding redness or increased warmth Neuro: Cranial nerves II-XII grossly intact Psych: Calm and cooperative Procedure Medical Decision Making Acute problems addressed: wound vac complications Chronic Problems noted/addressed: hypertension, hyperlipidemia, GERD and arthritis Differentials include but not limited to: post operative infection, wound vac complication Other sources: patient, chart review Summary: Patient is an 84-year-old female presenting to the ED for evaluation of malfunctioning wound VAC as above. She is well-appearing on exam with reassuring vital signs. She has no signs or symptoms of systemic illness and her recent operative site has no evidence of surrounding infection and no increasing pain at this site. Spoke with orthopedics who stated patient simply needed a replacement of a part of her wound VAC which was replaced successfully and her wound VAC appeared functioning appropriately. Patient appears stable for discharge home. She was instructed to follow-up with orthopedics tomorrow as scheduled for removal of wound VAC. Discussed strict ED return precautions Attending on shift: Dr. Anthony Reexamination/Reevaluation Assessment/Plan 1. Encounter for management of wound VAC Patient Education Wound: VAC (Vacuum-Assisted Closure) Follow Up With When Contact Information Return to Emergency Department Within As Needed Additional Instructions: for new or worsening symptoms Follow up with orthopedics as scheduled tomorrow Within As Needed Additional Instructions: Medication Reconciliation Unchanged buPROPion (buPROPion 150 mg/24 hours (XL) oral tablet, extended release)Oral Every 24 hours. calcium carbonate (calcium (as carbonate) 600 mg oral tablet)2 tab(s) Oral Daily. Refills: 0. calcium-vitamin D (calcium (as carbonate)-vitamin D 600 mg-10 mcg (400 intl units) oral tablet)1 tab(s) Oral Twice daily. Refills: 0. cholecalciferol (cholecalciferol 125 mcg (5000 intl units) oral capsule)1 Capsules Oral Daily for 90 Days. Refills: 0. cholecalciferol (Vitamin D3 (cholecalciferol) 125 mcg (5000 intl units) oral capsule)1 Capsules Oral Daily for 90 Days. Refills: 0. cholecalciferol (Vitamin D3 (cholecalciferol) 125 mcg (5000 intl units) oral tablet)1 tab(s) Oral Daily for 90 Days. Refills: 0. docusate (Colace 100 mg oral capsule)Oral Twice daily. docusate-senna (docusate-senna 50 mg-8.6 mg oral tablet)2 tab(s) Oral At bedtime for 7 Days. Refills: 1. DULoxetine (DULoxetine 30 mg oral delayed release capsule)1 Capsules Oral At bedtime. DULoxetine (DULoxetine 60 mg oral delayed release capsule)1 Capsules Oral Every morning. ergocalciferol (ergocalciferol 1.25 mg (50,000 intl units) oral capsule)1 Capsules Oral Every week. Refills: 0. folic acid (folic acid 1 mg oral tablet)Oral Daily. lisinoprilOral Daily. melatonin (melatonin 1 mg oral tablet)Oral At bedtime. mirabegron (Myrbetriq (mirabegron) 25 mg oral tablet, extended release)1 tab(s) Oral Daily. multivitamin, prenatalOral Daily. ondansetron (ondansetron 4 mg oral tablet)1 tab(s) Oral Every 8 hours for 5 Days. Refills: 1. ondansetron (Zofran tablet)4 Milligram Every 6 hours as needed as needed for nausea/vomiting. rosuvastatin (rosuvastatin 20 mg oral tablet)1 tab(s) Oral Daily. ED Forms Problem List/Past Medical History Ongoing Arthritis GERD (gastroesophageal reflux disease) HTN (hypertension) Hypercholesteremia Neuropathy Historical No qualifying data Procedure/Surgical History Irrigation and sharp excisional debridement of right lateral ankle surgical site wound dehiscence, Layered closure of right ankle wound dehiscence (05/22/2024) Cysto/Stent (03/28/2024) Right tibia talocalcaneal arthrodesis, Removal of antibiotic spacer and antibiotic nail (05/25/2023) Application of an antibiotic spacer, (03/08/2023) Right fibular osteotomy with resection of the distal fibula (03/08/2023) Back Removal of kidney stone Right Knee replacement Uterine ablation Medication Administration Allergies amoxicillin-clavulanate (Unknown) ceFAZolin (Unknown) cefTRIAXone (Unknown) doxycycline (Unknown) morphine vancomycin (Unknown) Social History Smoking Status Never smoker Family History Lab Results Diagnostic Results ECG Attestation by Meño Anthony MD on July 10, 2024 11:11 I personally saw and evaluated the patient. I discussed the management with the resident and reviewed the resident&rsquo;s note. I agree with the documented findings and plan of care. Procedures: _ Critical Care: _ 07/07/2024 Op/Procedure Note 06/24/2024 Operative note Indication for Surgery Patient is an 84-year-old female who is well-known to me. She has had multiple surgeries on her right lower extremity with the last 1 being an irrigation debridement of a chronic wound. Her wound did not heal, so we are bring her back today for a brevis flap. Preoperative Diagnosis Right chronic lateral ankle wound Postoperative Diagnosis Same Operation Right peroneus brevis rotational flap Irrigation and sharp excisional debridement of right draining lateral ankle wound Surgeon(s) akash Abdalla I was present for all salinas and critical portions of this case. Anesthesia General Estimated Blood Loss see anesthesia report Findings None Specimen(s) Tissue for culture Complications none Technique The patient as seen in the preoperative holding area where the right lower extremity was marked. The procedure was confirmed on both the consent and with the patient. The patient was then taken back to the operating room placed the operating table. General anesthesia was induced. A timeout was performed to ensure correct operative site and procedure and the antibiotics had been given. The right leg was prepped and draped in sterile fashion. We began by making incision along the length of the distal two thirds of the fibula all the way down incorporating the previous surgical incision. We ellipsed out the entire previous surgical site including the entire draining sinus tract and underlying soft tissue. We then sent deep tissue for culture and then thoroughly curetted out the exposed bone after debridement and the surrounding soft tissue. We then carefully dissected down proximally to the level of the fascia overlying the peroneal tendons and dissected through. We identified the peroneus longus and reflected it posteriorly and away from the peroneus brevis. The superficial peroneal nerve was then identified and the motor branch and neurovascular bundle proximally was identified this was ligated with bipolar electrocautery. A knife was then used to sharply elevate the tip of the brevis directly off the fibula taking periosteum. An Allis clamp was then used to grab the periosteum, and bipolar electrocautery was then used to raise the flap of the anterior compartment and fibula. We continued to dissect and raise the flap distally taking care to protect manipulation until we got down to the distal aspect of the peroneus brevis muscle. We only took as much as we needed to to cover the incision and were able to leave likely 2 perforators distally at the very least. We then flapped the brevis flap over and onto the wound and then utilized 2-0 Monocryl sparingly to tack the surrounding muscle to the skin under no tension. We then cut and Integra and placed it over the wound suturing it down onto the skin on top of the muscle. We then closed the subcutaneous tissue with 3-0 Vicryl and simple 3-0 nylon's. DuoDERM was then placed around the edge of the wound followed by wound VAC. A short leg splint was then applied Post Operative Course 1. Patient be admitted for continuous broad-spectrum antibiotics 2. We will follow cultures and tailor antibiotics appropriately 3. Her wound VAC can be removed prior to discharge with a new one placed, at that time he can likely be a customizable Prevena 4. She will get vitamin D 5. Should get her standard inpatient pain management protocol 6. She does not need DVT prophylaxis 7. She can follow-up with me in roughly 2 weeks as long as the wound VAC can be changed to allow for that. 06/24/2024 Discharge Summaries Results Value Date Source Discharge Summary ORTHOPAEDIC SURGERY DISCHARGE SUMMARY General Discharge Information: The complete Discharge Summary consists of three documents: Admission Note, Depart Patient Instructions, and the Discharge Summary. Date of Admission 06/24/2024 Admitting Attending J Luis Rosas MD Admission Diagnosis Diagnoses This Visit Wound of ankle (S91.009A) Date of Discharge 06/30/2024 Discharge Attending Alison GRIMM, J Luis Shafer Discharge Diagnosis 1) Same as above, plus the followin) S/p the below stated procedures _ Date and Procedure Performed 06/24 Right peroneus brevis rotational flap Irrigation and sharp excisional debridement of right draining lateral ankle wound HPI/Indication for Procedure Patient is an 84-year-old female who is well-known to trauma service. She has had multiple surgeries on her right lower extremity with the last 1 being an irrigation debridement of a chronic wound. Her wound did not heal, so we are bring her back today for a brevis flap. Consults 1) Physical Therapy/Occupational Therapy 2) Social Work 3) Anesthesiology Hospital Course Patient is a 84 Years Female who was admitted to the Orthopedic Surgery service. Based on the symptoms, examination, and/or radiographic findings the patient was indicated for the above listed intervention. Prior to surgery, risk and benefits were discussed and proper consent was obtained. Patient agreed with the plan and expressed understanding. On day of surgery, the patient was admitted and seen in the pre-operative holding area. The consent was verified and the surgical site was marked. They tolerated the procedure well and were transferred to the post-anesthesia care unit. Their pain medication regimen was titrated for adequate pain control. The patient progressed with physical therapy. They were tolerating their diet without issues. Their pain control was achieved with oral medications. They were subsequently discharged with pain prescription and follow up in place. ISHMAEL MEI was admitted for an inpatient status associated with an elective right lower extremity soft tissue coverage surgery. The expectation was that Female would require at least two full days and nights in the hospital for postoperative care including medical management and rehabilitation, while awaiting final intraop cultures. Female was stable for discharge on the sixth postoperative day. culture were negative and she did not require additional ID consult or antibiotic therapy. Please see this Admission Note, Consult Note (if any), Progress Notes, and Procedure Notes for a more detailed account of the patients stay. CONDITION: Stable MEDICATIONS: Please refer to depart summary INSTRUCTIONS/RESTRICTIONS: Please refer to depart summary FOLLOW-UP: Please refer to depart summary DISPOSITION:Home w/ Self Care 07/01/2024 History and Physicals Results Value Date Source History and Physical Subjective: Patient comes in today for surgery on her right foot. She is having a significant amount of pain in the plantar aspect of her heel associated with the scar tissue and some underlying heterotopic ossification. However she is also having some heel pain in the area of the subtalar joint. The pain has been limiting her to doing activities of daily living, and she is now having daily pain. Most of her pain is the plantar aspect of the foot. She denies any new injury and denies any nausea vomit fevers or chills. She denies any feelings of instability. ROS: As per HPI, otherwise all other review of systems negative Social: She does not smoke Family: Noncontributory to medical condition Objective: General no apparent distress Psych mood and affect appropriate for clinic situation Extremity Exam of the right lower extremity reveals well-healed surgical incisions with a painful prominence on the plantar aspect of the foot. She is nontender to palpation otherwise and is neurovascular tact Assessment/Plan: Plan will be for heterotopic ossification and scar tissue revision of the right foot. We will also plan to do an intraoperative spin for a CT scan to assess her subtalar joint for bony union. She is consented and marked. She will be discharged home after Dictated using a precision honer device, variances and mistakes may occur 01/20/2025 History and Physical Preoperative Surgic al Admission Note: I have seen and evaluated ISHMAEL MEI. [She] presents today for surgical treatment of RIGHT LATERAL ANKLE WOUND. The focused examination for the patient’s operative site is present in the patient s office note with Alison GRIMM, J Luis Shafer on August 13, 2024. I have evaluated the patient s extremity and concur with the findings annotated from the office evaluation. The other elements of the patient s relevant health history and multi-system examination were performed by Richard GRIMM, Adams Castro on August 15, 2024. I have evaluated the patient s head/neck, chest and abdomen and concur with the findings from the office evaluation. There have been no changes in the patient s examination findings. Surgical Communication Form not found on current visit. The patient s consent was reviewed/verified and surgical site was marked. Questions were addressed/resolved. Patient’s desired communication with family/friends/associates was confirmed. We have agreed to proceed with the surgical procedure as planned/advised. 08/15/2024 History and Physical patient seen in pre operative holding. No changes in history compared to the one taken by Kush Sprague on 06/12/24. Plan for Right rotational brevis flap on ankle wound with admission after. Regular rate and nonlabored respirations. 06/24/2024 Vital Signs Vital Sign Value Date Comments Source Temperature (Celsius) 36.4 Jennifer 02/06/2025 14:18:00 [facility] Heart Rate 74 bpm 01/20/2025 18:11:58 [facility] SpO2 97 % 01/20/2025 18:11:56 [facility] Respiratory Rate 18 breaths/min 01/20/2025 18:11:51 [facility] SBP NIBP 152 mm[Hg] 01/20/2025 18:11:00 [facility] DBP NIBP 78 mm[Hg] 01/20/2025 18:11:00 [facility] SpO2 98 % 01/20/2025 18:01:26 [facility] Heart Rate 80 bpm 01/20/2025 18:01:25 [facility] Respiratory Rate 15 breaths/min 01/20/2025 18:01:19 [facility] Mean NIBP 104 mm[Hg] 01/20/2025 18:00:00 [facility] SBP NIBP 149 mm[Hg] 01/20/2025 18:00:00 [facility] DBP NIBP 93 mm[Hg] 01/20/2025 18:00:00 [facility] SpO2 100 % 01/20/2025 17:51:26 [facility] Heart Rate 73 bpm 01/20/2025 17:51:17 [facility] Respiratory Rate 8 breaths/min 01/20/2025 17:50:47 [facility] SBP NIBP 156 mm[Hg] 01/20/2025 17:50:00 [facility] DBP NIBP 92 mm[Hg] 01/20/2025 17:50:00 [facility] Mean NIBP 116 mm[Hg] 01/20/2025 17:50:00 [facility] SpO2 100 % 01/20/2025 17:44:55 [facility] Respiratory Rate 13 breaths/min 01/20/2025 17:44:51 [facility] Heart Rate 74 bpm 01/20/2025 17:44:49 [facility] SBP NIBP 13 mm[Hg] 01/20/2025 17:44:31 [facility] DBP NIBP 86 mm[Hg] 01/20/2025 17:44:31 [facility] Mean NIBP 108 mm[Hg] 01/20/2025 17:44:31 [facility] Temperature (Celsius) 36.5 Jennifer 01/20/2025 17:44:00 [facility] Temperature (Celsius) 36.9 Jennifer 01/20/2025 15:21:00 [facility] Height (cm) 152.4 cm 01/20/2025 14:50:00 [facility] BMI 29.1 kg/m2 01/20/2025 14:50:00 [facility] Weight (kg) 67.6 kg 01/20/2025 14:50:00 [facility] Heart Rate 108 bpm 11/19/2024 19:18:29 [facility] SpO2 98 % 11/19/2024 19:18:29 [facility] Temperature (Celsius) 36.8 Jennifer 11/19/2024 19:18:29 [facility] Temperature (Celsius) 36 Jennifer 09/03/2024 19:11:30 [facility] Heart Rate 83 bpm 08/21/2024 20:10:39 [facility] SpO2 97 % 08/21/2024 20:10:39 [facility] Temperature (Celsius) 36.1 Jennifer 08/21/2024 20:10:39 [facility] Heart Rate 82 bpm 08/15/2024 22:00:00 [facility] Respiratory Rate 14 08/15/2024 22:00:00 [facility] SpO2 95 % 08/15/2024 22:00:00 [facility] Heart Rate 82 bpm 08/15/2024 21:15:00 [facility] Respiratory Rate 14 08/15/2024 21:15:00 [facility] SpO2 95 % 08/15/2024 21:15:00 [facility] SBP NIBP 108 mm[Hg] 08/15/2024 21:15:00 [facility] DBP NIBP 59 mm[Hg] 08/15/2024 21:15:00 [facility] Heart Rate 73 bpm 08/15/2024 20:55:00 [facility] Respiratory Rate 15 08/15/2024 20:55:00 [facility] SBP NIBP 122 mm[Hg] 08/15/2024 20:55:00 [facility] DBP NIBP 54 mm[Hg] 08/15/2024 20:55:00 [facility] SpO2 96 % 08/15/2024 20:55:00 [facility] SpO2 95 % 08/15/2024 20:40:59 [facility] Heart Rate 70 bpm 08/15/2024 20:40:53 [facility] Mean NIBP 94 mm[Hg] 08/15/2024 20:40:00 [facility] SBP NIBP 109 mm[Hg] 08/15/2024 20:40:00 [facility] DBP NIBP 87 mm[Hg] 08/15/2024 20:40:00 [facility] Mean NIBP 90 mm[Hg] 08/15/2024 20:25:00 [facility] SBP NIBP 125 mm[Hg] 08/15/2024 20:25:00 [facility] DBP NIBP 52 mm[Hg] 08/15/2024 20:25:00 [facility] Respiratory Rate 14 08/15/2024 20:25:00 [facility] Mean NIBP 80 mm[Hg] 08/15/2024 20:15:00 [facility] Mean NIBP 96 mm[Hg] 08/15/2024 19:40:00 [facility] Temperature (Celsius) 36.0 Jennifer 08/15/2024 19:30:00 [facility] Weight (kg) 67.6 kg 08/15/2024 16:30:00 [facility] Temperature (Celsius) 36.0 Jennifer 08/15/2024 16:30:00 [facility] Heart Rate 76 bpm 08/13/2024 18:16:12 [facility] Temperature (Celsius) 35.9 Jennifer 08/13/2024 18:16:12 [facility] Temperature (Celsius) 36.8 Jennifer 08/01/2024 16:50:28 [facility] SpO2 97 % 07/17/2024 20:56:00 [facility] Heart Rate 89 bpm 07/17/2024 20:53:15 [facility] SpO2 97 % 07/17/2024 20:53:15 [facility] Temperature (Celsius) 36.8 Jennifer 07/17/2024 20:53:15 [facility] SpO2 94 % 07/08/2024 19:21:00 [facility] Heart Rate 90 bpm 07/08/2024 19:10:54 [facility] SpO2 94 % 07/08/2024 19:10:54 [facility] Temperature (Celsius) 36.3 Jennifer 07/08/2024 19:10:54 [facility] SpO2 98 % 07/07/2024 20:39:34 [facility] Heart Rate 82 bpm 07/07/2024 20:39:33 [facility] Respiratory Rate 16 breaths/min 07/07/2024 20:39:00 [facility] Mean NIBP 110 mm[Hg] 07/07/2024 20:30:00 [facility] SBP NIBP 123 mm[Hg] 07/07/2024 20:30:00 [facility] DBP NIBP 91 mm[Hg] 07/07/2024 20:30:00 [facility] SpO2 100 % 07/07/2024 20:21:33 [facility] Heart Rate 80 bpm 07/07/2024 20:21:31 [facility] Respiratory Rate 16 breaths/min 07/07/2024 20:21:00 [facility] Mean NIBP 69 mm[Hg] 07/07/2024 20:00:00 [facility] SBP NIBP 113 mm[Hg] 07/07/2024 20:00:00 [facility] DBP NIBP 47 mm[Hg] 07/07/2024 20:00:00 [facility] SpO2 99 % 07/07/2024 19:59:58 [facility] Heart Rate 81 bpm 07/07/2024 19:59:57 [facility] Respiratory Rate 17 breaths/min 07/07/2024 19:59:00 [facility] Mean NIBP 85 mm[Hg] 07/07/2024 19:30:00 [facility] SBP NIBP 108 mm[Hg] 07/07/2024 19:30:00 [facility] DBP NIBP 79 mm[Hg] 07/07/2024 19:30:00 [facility] SpO2 98 % 07/07/2024 19:29:57 [facility] Mean NIBP 83 mm[Hg] 07/07/2024 19:00:00 [facility] SBP NIBP 124 mm[Hg] 07/07/2024 19:00:00 [facility] DBP NIBP 68 mm[Hg] 07/07/2024 19:00:00 [facility] Respiratory Rate 16 breaths/min 07/07/2024 19:00:00 [facility] Heart Rate 90 bpm 07/07/2024 18:58:48 [facility] Weight (kg) 67.6 kg 07/07/2024 18:34:00 [facility] Temperature (Celsius) 36.7 Jennifer 07/07/2024 18:34:00 [facility] SBP NIBP 119 mm[Hg] 06/30/2024 12:40:58 [facility] DBP NIBP 64 mm[Hg] 06/30/2024 12:40:58 [facility] Mean NIBP 82 mm[Hg] 06/30/2024 12:40:58 [facility] Heart Rate 81 bpm 06/30/2024 12:40:58 [facility] SpO2 97 % 06/30/2024 12:40:58 [facility] Temperature (Celsius) 35.9 Jennifer 06/30/2024 12:40:58 [facility] Respiratory Rate 16 breaths/min 06/30/2024 12:00:00 [facility] SBP NIBP 135 mm[Hg] 06/30/2024 02:42:36 [facility] DBP NIBP 71 mm[Hg] 06/30/2024 02:42:36 [facility] Mean NIBP 93 mm[Hg] 06/30/2024 02:42:36 [facility] Heart Rate 91 bpm 06/30/2024 02:42:36 [facility] SpO2 96 % 06/30/2024 02:42:36 [facility] Temperature (Celsius) 36.7 Jennifer 06/30/2024 02:42:36 [facility] Respiratory Rate 16 breaths/min 06/30/2024 02:42:36 [facility] SBP NIBP 116 mm[Hg] 06/29/2024 20:53:51 [facility] DBP NIBP 71 mm[Hg] 06/29/2024 20:53:51 [facility] Mean NIBP 86 mm[Hg] 06/29/2024 20:53:51 [facility] Heart Rate 90 bpm 06/29/2024 20:53:51 [facility] SpO2 95 % 06/29/2024 20:53:51 [facility] Temperature (Celsius) 36.4 Jennifer 06/29/2024 20:53:51 [facility] Respiratory Rate 16 breaths/min 06/29/2024 20:53:51 [facility] Temperature (Celsius) 36.2 Jennifer 06/29/2024 13:00:00 [facility] Heart Rate 86 bpm 06/29/2024 13:00:00 [facility] SpO2 96 % 06/29/2024 13:00:00 [facility] Respiratory Rate 16 breaths/min 06/29/2024 13:00:00 [facility] SBP NIBP 121 mm[Hg] 06/29/2024 13:00:00 [facility] DBP NIBP 79 mm[Hg] 06/29/2024 13:00:00 [facility] Mean NIBP 85 mm[Hg] 06/29/2024 04:40:17 [facility] Weight (kg) 67.27 kg 06/24/2024 16:44:00 [facility] Height (cm) 152.4 cm 06/24/2024 16:44:00 [facility] BMI 29 kg/m2 06/24/2024 16:44:00 [facility] SpO2 98 % 06/20/2024 13:15:00 [facility] Heart Rate 89 bpm 06/20/2024 13:11:36 [facility] SpO2 98 % 06/20/2024 13:11:36 [facility] Temperature (Celsius) 35.7 Jennifer 06/20/2024 13:11:36 [facility] Encounters Location Location Details Encounter Type Encounter Number Reason For Visit Attending Provider ADM Date DC Date Status Source [facility] [id number] J Luis Rosas 06/20 13:07 :09 06/21 04:59 :59 [facility] Nurse Phone Call Clinic [id number] Brennen Mei 06/24 11:18 :13 06/25 04:59 :59 [facility] Inpatient [id number] J Luis Rosas 06/24 16:41 :56 06/30 18:55 :00 [facility] Emergency [id number] Meño Anthony 07/07 18:20 :49 07/07 20:45 :00 [facility] [id number] Murray Flynn 07/08 18:14 :53 07/09 04:59 :59 [facility] [id number] Murray Flynn 07/17 19:40 :09 07/18 04:59 :59 [facility] [id number] J Luis Rosas 08/01 15:17 :17 08/02 04:59 :59 [facility] [id number] J Luis Rosas 08/13 17:50 :47 08/14 04:59 :59 [facility] Nurse Phone Call Clinic [id number] Brennen Mei 08/15 11:49 :56 08/16 04:59 :59 [facility] Day Surgery [id number] J Luis Rosas 08/15 15:20 :13 08/16 04:59 :59 [facility] [id number] Murray Flynn 08/21 19:57 :05 08/22 04:59 :59 [facility] [id number] J Luis Rosas 09/03 18:51 :41 09/04 04:59 :59 [facility] Outpatient [id number] J Luis Rosas 11/19 18:56 :09 11/20 05:59 :59 [facility] [id number] J Luis Rosas 11/19 19:15 :05 11/20 05:59 :59 [facility] Non-Admit [id number] J Luis Rosas 01/19 21:00 :00 01/20 04:59 :59 [facility] Nurse Phone Call Clinic [id number] Brennen Mei 01/20 12:19 :38 01/21 04:59 :59 [facility] Day Surgery [id number] J Luis Rosas 01/20 14:23 :00 01/21 04:59 :59 [facility] [id number] J Luis Rosas 02/06 14:07 :55 02/07 04:59 :59 [facility] Outpatient [id number] J Luis Rosas 05/29 15:31 :09 05/30 04:59 :59 [facility] Procedures Procedure Code Date Perfomer Comments Source RIGHT LATERAL ANKLE SPLIT THICKNESS SKIN GRAFT FROM RIGHT THIGH 08/15/2024 05:00:00 [facility] Right peroneus brevis rotational flap, Irrigation and sharp excisional debridement of right draining lateral ankle wound 06/24/2024 05:00:00 [facility] Removal of kidney stone [facility] Uterine ablation [facility] Right Knee replacement [facility] [place] [facility] of Care Plan of Care Date Source No data available for this section 05/30/2025 [facility] Social History Social History Date Source No data available for this section 05/30/2025 [facility] No data available for this section 02/07/2025 [facility] No data available for this section 01/21/2025 [facility] No data available for this section 01/20/2025 [facility] No data available for this section 11/20/2024 [facility] No data available for this section 09/04/2024 [facility] No data available for this section 08/22/2024 [facility] No data available for this section 08/16/2024 [facility] No data available for this section 08/14/2024 [facility] No data available for this section 08/02/2024 [facility] No data available for this section 07/18/2024 [facility] No data available for this section 07/09/2024 [facility] No data available for this section 07/07/2024 [facility] No data available for this section 06/30/2024 [facility] No data available for this section 06/25/2024 [facility] No data available for this section 06/21/2024 [facility]
--- OUTSIDE RECORDS SUMMARY | 2025-06-18 11:33 | XMS_ITS | Continuity of Care Document ---
Author Name [facility] Address [address] [place] [address] Organization [facility] Care Team Providers Care Professor Of Apologetics Name Role Phone [facility] Unavailable Unavailable Problems Problem Status Onset [...] Daily, # 60 Tablet(s), Refill(s) 0, Pharmacy: [facility], 152.4, cm, 06/24/24 19:41:00 CDT, Height (cm), kg, 06/24/24 19:41:00 CDT, Weight (kg), 67.27 Active 024 [facility] Allergies, Adverse Reactions, Alerts Substance Category Reaction Severity Reaction type Status Date Reported Comments Source doxycycline Assertion Unknown Propensity to adverse reactions to drug Active [facility] vancomycin Assertion Unknown Propensity to adverse reactions to drug Active [facility] ceFAZolin Assertion Drug allergy [facility]ion Drug allergy Active [facility] ceFAZolin<blackmon p>1</sup> Assertion Unknown Propensity to adverse reactions to drug Active [facility] 03/2023 [facility] cefTRIAXone< sup>2</sup> Assertion Unknown Propensity to adverse reactions to drug Active [facility] 03/2023 [facility] amoxicillin- clavulanate< sup>3</sup> Assertion Unknown Propensity to adverse reactions to drug Active [facility] 03/2023 [facility] amoxicillin- clavulanate Assertion Drug allergy Active [facility] Augmentin Assertion Drug allergy Active [facility] cefTRIAXone Assertion Drug allergy Active [facility] cefTRIAXone< sup>1</sup> Assertion Unknown Propensity to adverse reactions to drug Active [facility] 03/2023 [facility] amoxicillin- clavulanate< sup>2</sup> Assertion Unknown Propensity to adverse reactions to drug Active [facility] 03/2023 [facility] ceFAZolin<blackmon p>3</sup> Assertion Unknown Propensity to adverse reactions to drug Active [facility] 03/2023 [facility] cefTRIAXone< sup>3</sup> Assertion Unknown Propensity to adverse reactions to drug Active [facility] 03/2023 [facility] amoxicillin- clavulanate< sup>1</sup> Assertion Unknown Propensity to adverse reactions to drug Active [facility] 03/2023 [facility] ceFAZolin<blackmon p>2</sup> Assertion Unknown Propensity to adverse reactions to drug Active [facility] 03/2023 [facility] Results Order Name [...] Signed on: 05/29/25 16:11 05/29 10:40 :21 [facility] XR Ankle Right XR Ankle Right XR [...] Signed on: 05/29/25 16:11 05/29 10:40 :21 [facility] Surgical Report Surgical Report SURGICAL PATHOLOGY REPORT Patient Name: ISHMAEL MEI Specimen Number: [id number] Patient Collection Date: 01/20/2025 Submitting Physician: J [...] report (if any) were determined by the [facility] Department of Pathology. They have not been [...] each specimen. 01/20 12:20 :00 Missing Attachment [id number] can be viewed in source system [facility] XR C-Arm XR C-Arm XR General Diagnostic [...] Report* * * Electronic ally Signed by: DGIT, PS360 Signed on: 01/20/25 12:51 01/20 11:24 :46 [facility] XR Ankle Right XR Ankle Right XR General Diagnostic Accession # Exam Date/Time Procedure Ordering Provider [id number] 11/19/2024 13:14 [employer]PER[employer] XR Ankle Right J Luis Rosas MD [...] * Electronic ally Signed by: Naseem GRIMM, Paavn Le Signed on: 11/19/24 13:24 11/19 13:01 :28 [facility] HEMATOLOGY PROFILES WBC 5.40 x10(9)/L 3.50 - 10.50 06/28 06:23 :00 [facility] HEMATOLOGY PROFILES RBC 2.99 x10(12)/L 3.90 - 5.03 06/28 06:23 :00 [facility] HEMATOLOGY PROFILES HGB 7.7 g/dL 12.0 - 15.5 06/28 06:23 :00 Interpretive Data: Ajdcjw-sd-gin e transgender patients on testosterone therapy should have results assessed using the male reference range. Lxrq-ti-gmtvg e transgender patients on hormone-modul ating therapy clinical judgment is advisedfor assessment. [facility] HEMATOLOGY PROFILES HCT 25.7 % 34.9 - 44.5 06/28 06:23 :00 Interpretive Data: Xhdbva-el-vyh e transgender patients on testosterone therapy should have results assessed using the male reference range. Tuwl-xp-btzwv e transgender patients on hormone-modul ating therapy clinical judgment is advisedfor assessment. [facility] HEMATOLOGY PROFILES MCV 86.0 fL 81.6 - 98.3 06/28 06:23 :00 [facility] HEMATOLOGY PROFILES MCH 25.8 pg 26.0 - 33.0 06/28 06:23 :00 [facility] HEMATOLOGY PROFILES MCHC 30.0 g/dL 32.0 - 36.0 06/28 06:23 :00 [facility] HEMATOLOGY PROFILES RDW CV 15.0 % 11.9 - 15.5 06/28 06:23 :00 [facility] HEMATOLOGY PROFILES RDW SD 47.4 fL 36.4 - 46.3 06/28 06:23 :00 [facility] HEMATOLOGY PROFILES PLT 165 x10(9)/L 150 - 450 06/28 06:23 :00 [facility] HEMATOLOGY PROFILES MPV 13.2 8.0 - 12.0 06/28 06:23 :00 [facility] HEMATOLOGY PROFILES % Nucleated RBCs 0.0 % 06/28 06:23 :00 [facility] HEMATOLOGY PROFILES Absolute Nucleated RBCs 0.0 x10(9)/L 0.0 - 0.0 06/28 06:23 :00 Interpretive Data: Normal values not established in patients less than 18 years old. [facility] HEMATOLOGY PROFILES % Neutrophils 49.2 % 06/28 06:23 :00 [facility] HEMATOLOGY PROFILES % Lymphocytes 37.8 % 06/28 06:23 :00 [facility] HEMATOLOGY PROFILES % Monocytes 9.3 % 06/28 06:23 :00 [facility] HEMATOLOGY PROFILES % Eosinophils 3.1 % 06/28 06:23 :00 [facility] HEMATOLOGY PROFILES % Basophils 0.4 % 06/28 06:23 :00 [facility] HEMATOLOGY PROFILES % Immature Granulocytes 0.20 % 0.02 - 0.42 06/28 06:23 :00 [facility] HEMATOLOGY PROFILES Absolute Granulocytes 2.66 x10(9)/L 1.70 - 7.00 06/28 06:23 :00 [facility] HEMATOLOGY PROFILES Abs Lymphocytes 2.04 x10(9)/L 0.90 - 2.90 06/28 06:23 :00 [facility] HEMATOLOGY PROFILES Abs Monocytes 0.50 x10(9)/L 0.30 - 0.90 06/28 06:23 :00 [facility] HEMATOLOGY PROFILES Abs Eosinophils 0.17 x10(9)/L 0.05 - 0.50 06/28 06:23 :00 [facility] HEMATOLOGY PROFILES Abs Basophils 0.02 x10(9)/L 0.00 - 0.30 06/28 06:23 :00 [facility] HEMATOLOGY PROFILES Abs Immature Granulocytes 0.01 x10(9)/L 0.00 - 0.03 06/28 06:23 :00 [facility] GENERAL CHEMISTRY BUN 22 mg/dL 06/27 05:45 :00 [facility] GENERAL CHEMISTRY Calcium 9.7 mg/dL 8.3 - 10.6 06/27 05:45 :00 [facility] GENERAL CHEMISTRY Glucose Lvl 86 mg/dL 70 - 139 06/27 05:45 :00 [facility] GENERAL CHEMISTRY Chloride 109 mmol/L 98 - 107 06/27 05:45 :00 [facility] GENERAL CHEMISTRY Sodium 142 mmol/L 136 - 145 06/27 05:45 :00 [facility] GENERAL CHEMISTRY Potassium 4.4 mmol/L 3.5 - 5.1 06/27 05:45 :00 [facility] GENERAL CHEMISTRY CO2 27 mmol/L 20 - 31 06/27 05:45 :00 [facility] GENERAL CHEMISTRY Anion gap 10 mmol/L 0 - 20 06/27 05:45 :00 [facility] GENERAL CHEMISTRY Creatinine, standardized 1.1 mg/dL 0.5 - 1.0 06/27 05:45 :00 Interpretive Data: Jkauip-dj-hgs e transgender patients on testosterone therapy should have results assessed using the male reference range. Isau-cv-qmele e transgender patients on hormone-modul ating therapy clinical judgment is advisedfor assessment. [facility] GENERAL CHEMISTRY Estimated GFR for Adults 52 mL/min/1.7 3m 06/27 05:45 :00 Interpretive Data: Changed to CKD-EPI 2020 on 2020. [facility] GENERAL CHEMISTRY Estimated GFR for peds Not calculated 06/27 05:45 :00 Interpretive Data: The estimated GFR was calculated using the B kurt Sumner equation (2009) . Reference: Pediatric GFR calculator at [employer] Website. [facility] HEMATOLOGY PROFILES % Nucleated RBCs 0.0 % 06/27 05:45 :00 [facility] HEMATOLOGY PROFILES Absolute Nucleated RBCs 0.0 x10(9)/L 0.0 - 0.0 06/27 05:45 :00 Interpretive Data: Normal values not established in patients less than 18 years old. [facility] HEMATOLOGY PROFILES % Neutrophils 50.0 % 06/27 05:45 :00 [facility] HEMATOLOGY PROFILES % Lymphocytes 36.6 % 06/27 05:45 :00 [facility] HEMATOLOGY PROFILES % Monocytes 9.9 % 06/27 05:45 :00 [facility] HEMATOLOGY PROFILES % Eosinophils 2.6 % 06/27 05:45 :00 [facility] HEMATOLOGY PROFILES % Basophils 0.5 % 06/27 05:45 :00 [facility] HEMATOLOGY PROFILES % Immature Granulocytes 0.40 % 0.02 - 0.42 06/27 05:45 :00 [facility] HEMATOLOGY PROFILES Absolute Granulocytes 2.74 x10(9)/L 1.70 - 7.00 06/27 05:45 :00 [facility] HEMATOLOGY PROFILES Abs Lymphocytes 2.00 x10(9)/L 0.90 - 2.90 06/27 05:45 :00 [facility] HEMATOLOGY PROFILES Abs Monocytes 0.54 x10(9)/L 0.30 - 0.90 06/27 05:45 :00 [facility] HEMATOLOGY PROFILES Abs Eosinophils 0.14 x10(9)/L 0.05 - 0.50 06/27 05:45 :00 [facility] HEMATOLOGY PROFILES Abs Basophils 0.03 x10(9)/L 0.00 - 0.30 06/27 05:45 :00 [facility] HEMATOLOGY PROFILES Abs Immature Granulocytes 0.02 x10(9)/L 0.00 - 0.03 06/27 05:45 :00 [facility] HEMATOLOGY PROFILES WBC 5.47 x10(9)/L 3.50 - 10.50 06/27 05:45 :00 [facility] HEMATOLOGY PROFILES RBC 2.89 x10(12)/L 3.90 - 5.03 06/27 05:45 :00 [facility] HEMATOLOGY PROFILES HGB 7.6 g/dL 12.0 - 15.5 06/27 05:45 :00 Interpretive Data: Wzysfo-lr-uey e transgender patients on testosterone therapy should have results assessed using the male reference range. Yjvz-bp-yaxjm e transgender patients on hormone-modul ating therapy clinical judgment is advisedfor assessment. [facility] HEMATOLOGY PROFILES HCT 24.7 % 34.9 - 44.5 06/27 05:45 :00 Interpretive Data: Gigctk-vu-ipx e transgender patients on testosterone therapy should have results assessed using the male reference range. Oxbi-vs-eyzbl e transgender patients on hormone-modul ating therapy clinical judgment is advisedfor assessment. [facility] HEMATOLOGY PROFILES MCV 85.5 fL 81.6 - 98.3 06/27 05:45 :00 [facility] HEMATOLOGY PROFILES MCH 26.3 pg 26.0 - 33.0 06/27 05:45 :00 [facility] HEMATOLOGY PROFILES MCHC 30.8 g/dL 32.0 - 36.0 06/27 05:45 :00 [facility] HEMATOLOGY PROFILES RDW CV 14.9 % 11.9 - 15.5 06/27 05:45 :00 [facility] HEMATOLOGY PROFILES RDW SD 46.3 fL 36.4 - 46.3 06/27 05:45 :00 [facility] HEMATOLOGY PROFILES MPV 13.5 8.0 - 12.0 06/27 05:45 :00 [facility] HEMATOLOGY PROFILES PLT 165 x10(9)/L 150 - 450 06/27 05:45 :00 [facility] GENERAL CHEMISTRY BUN 17 mg/dL 8 - 06/26 05:51 :00 [facility] GENERAL CHEMISTRY Calcium 9.7 mg/dL 8.3 - 10.6 06/26 05:51 :00 [facility] GENERAL CHEMISTRY Glucose Lvl 91 mg/dL 70 - 139 06/26 05:51 :00 [facility] GENERAL CHEMISTRY Chloride 109 mmol/L 98 - 107 06/26 05:51 :00 [facility] GENERAL CHEMISTRY Sodium 141 mmol/L 136 - 145 06/26 05:51 :00 [facility] GENERAL CHEMISTRY Potassium 4.4 mmol/L 3.5 - 5.1 06/26 05:51 :00 [facility] GENERAL CHEMISTRY CO2 26 mmol/L 20 - 31 06/26 05:51 :00 [facility] GENERAL CHEMISTRY Anion gap 10 mmol/L 0 - 20 06/26 05:51 :00 [facility] GENERAL CHEMISTRY Creatinine, standardized 1.1 mg/dL 0.5 - 1.0 06/26 05:51 :00 Interpretive Data: Mrxbma-wp-gtc e transgender patients on testosterone therapy should have results assessed using the male reference range. Enly-bn-rlbzi e transgender patients on hormone-modul ating therapy clinical judgment is advisedfor assessment. [facility] GENERAL CHEMISTRY Estimated GFR for Adults 52 mL/min/1.7 3m 06/26 05:51 :00 Interpretive Data: Changed to CKD-EPI 2020 on 2020. [facility] GENERAL CHEMISTRY Estimated GFR for peds Not calculated 06/26 05:51 :00 Interpretive Data: The estimated GFR was calculated using the B kurt Sumner equation (2009) . Reference: Pediatric GFR calculator at [employer] Website. [facility] HEMATOLOGY PROFILES WBC 5.95 x10(9)/L 3.50 - 10.50 06/26 05:51 :00 [facility] HEMATOLOGY PROFILES RBC 3.00 x10(12)/L 3.90 - 5.03 06/26 05:51 :00 [facility] HEMATOLOGY PROFILES HGB 7.9 g/dL 12.0 - 15.5 06/26 05:51 :00 Interpretive Data: Ngzelh-id-pdk e transgender patients on testosterone therapy should have results assessed using the male reference range. Dkok-oh-vhhzy e transgender patients on hormone-modul ating therapy clinical judgment is advisedfor assessment. [facility] HEMATOLOGY PROFILES HCT 26.7 % 34.9 - 44.5 06/26 05:51 :00 Interpretive Data: Gqpwja-pr-hzv e transgender patients on testosterone therapy should have results assessed using the male reference range. Doyg-lz-lyphd e transgender patients on hormone-modul ating therapy clinical judgment is advisedfor assessment. [facility] HEMATOLOGY PROFILES MCV 89.0 fL 81.6 - 98.3 06/26 05:51 :00 [facility] HEMATOLOGY PROFILES MCH 26.3 pg 26.0 - 33.0 06/26 05:51 :00 [facility] HEMATOLOGY PROFILES MCHC 29.6 g/dL 32.0 - 36.0 06/26 05:51 :00 [facility] HEMATOLOGY PROFILES RDW CV 14.8 % 11.9 - 15.5 06/26 05:51 :00 [facility] HEMATOLOGY PROFILES RDW SD 47.8 fL 36.4 - 46.3 06/26 05:51 :00 [facility] HEMATOLOGY PROFILES PLT 159 x10(9)/L 150 - 450 06/26 05:51 :00 [facility] HEMATOLOGY PROFILES MPV 13.3 8.0 - 12.0 06/26 05:51 :00 [facility] HEMATOLOGY PROFILES % Nucleated RBCs 0.0 % 06/26 05:51 :00 [facility] HEMATOLOGY PROFILES Absolute Nucleated RBCs 0.0 x10(9)/L 0.0 - 0.0 06/26 05:51 :00 Interpretive Data: Normal values not established in patients less than 18 years old. [facility] HEMATOLOGY PROFILES % Neutrophils 59.0 % 06/26 05:51 :00 [facility] HEMATOLOGY PROFILES % Lymphocytes 27.7 % 06/26 05:51 :00 [facility] HEMATOLOGY PROFILES % Monocytes 9.7 % 06/26 05:51 :00 [facility] HEMATOLOGY PROFILES % Eosinophils 2.9 % 06/26 05:51 :00 [facility] HEMATOLOGY PROFILES % Basophils 0.5 % 06/26 05:51 :00 [facility] HEMATOLOGY PROFILES % Immature Granulocytes 0.20 % 0.02 - 0.42 06/26 05:51 :00 [facility] HEMATOLOGY PROFILES Absolute Granulocytes 3.51 x10(9)/L 1.70 - 7.00 06/26 05:51 :00 [facility] HEMATOLOGY PROFILES Abs Lymphocytes 1.65 x10(9)/L 0.90 - 2.90 06/26 05:51 :00 [facility] HEMATOLOGY PROFILES Abs Monocytes 0.58 x10(9)/L 0.30 - 0.90 06/26 05:51 :00 [facility] HEMATOLOGY PROFILES Abs Eosinophils 0.17 x10(9)/L 0.05 - 0.50 06/26 05:51 :00 [facility] HEMATOLOGY PROFILES Abs Basophils 0.03 x10(9)/L 0.00 - 0.30 06/26 05:51 :00 [facility] HEMATOLOGY PROFILES Abs Immature Granulocytes 0.01 x10(9)/L 0.00 - 0.03 06/26 05:51 :00 [facility] GENERAL CHEMISTRY BUN 15 mg/dL 8 - 23 06/25 10:04 :00 [facility] GENERAL CHEMISTRY Calcium 9.9 mg/dL 8.3 - 10.6 06/25 10:04 :00 [facility] GENERAL CHEMISTRY Glucose Lvl 88 mg/dL 70 - 139 06/25 10:04 :00 [facility] GENERAL CHEMISTRY Chloride 110 mmol/L 98 - 107 06/25 10:04 :00 [facility] GENERAL CHEMISTRY Sodium 142 mmol/L 136 - 145 06/25 10:04 :00 [facility] GENERAL CHEMISTRY Potassium 4.4 mmol/L 3.5 - 5.1 06/25 10:04 :00 [facility] GENERAL CHEMISTRY CO2 25 mmol/L 20 - 31 06/25 10:04 :00 [facility] GENERAL CHEMISTRY Anion gap 11 mmol/L 0 - 20 06/25 10:04 :00 [facility] GENERAL CHEMISTRY Creatinine, standardized 1.0 mg/dL 0.5 - 1.0 06/25 10:04 :00 Interpretive Data: Zamwej-tf-ibr e transgender patients on testosterone therapy should have results assessed using the male reference range. Zsqp-kh-ejwtl e transgender patients on hormone-modul ating therapy clinical judgment is advisedfor assessment. [facility] GENERAL CHEMISTRY Estimated GFR for Adults 54 mL/min/1.7 3m 06/25 10:04 :00 Interpretive Data: Changed to CKD-EPI 2020 on 2020. [facility] GENERAL CHEMISTRY Estimated GFR for peds Not calculated 06/25 10:04 :00 Interpretive Data: The estimated GFR was calculated using the Mely hicks Sumner equation (2009) . Reference: Pediatric GFR calculator at [employer] Website. [facility] HEMATOLOGY PROFILES % Nucleated RBCs 0.0 % 06/25 10:04 :00 [facility] HEMATOLOGY PROFILES Absolute Nucleated RBCs 0.0 x10(9)/L 0.0 - 0.0 06/25 10:04 :00 Interpretive Data: Normal values not established in patients less than 18 years old. [facility] HEMATOLOGY PROFILES % Neutrophils 45.1 % 06/25 10:04 :00 [facility] HEMATOLOGY PROFILES % Lymphocytes 40.4 % 06/25 10:04 :00 [facility] HEMATOLOGY PROFILES % Monocytes 10.7 % 06/25 10:04 :00 [facility] HEMATOLOGY PROFILES % Eosinophils 3.0 % 06/25 10:04 :00 [facility] HEMATOLOGY PROFILES % Basophils 0.6 % 06/25 10:04 :00 [facility] HEMATOLOGY PROFILES % Immature Granulocytes 0.20 % 0.02 - 0.42 06/25 10:04 :00 [facility] HEMATOLOGY PROFILES Absolute Granulocytes 2.11 x10(9)/L 1.70 - 7.00 06/25 10:04 :00 [facility] HEMATOLOGY PROFILES Abs Lymphocytes 1.89 x10(9)/L 0.90 - 2.90 06/25 10:04 :00 [facility] HEMATOLOGY PROFILES Abs Monocytes 0.50 x10(9)/L 0.30 - 0.90 06/25 10:04 :00 [facility] HEMATOLOGY PROFILES Abs Eosinophils 0.14 x10(9)/L 0.05 - 0.50 06/25 10:04 :00 [facility] HEMATOLOGY PROFILES Abs Basophils 0.03 x10(9)/L 0.00 - 0.30 06/25 10:04 :00 [facility] HEMATOLOGY PROFILES Abs Immature Granulocytes 0.01 x10(9)/L 0.00 - 0.03 06/25 10:04 :00 [facility] HEMATOLOGY PROFILES WBC 4.68 x10(9)/L 3.50 - 10.50 06/25 10:04 :00 [facility] HEMATOLOGY PROFILES RBC 3.23 x10(12)/L 3.90 - 5.03 06/25 10:04 :00 [facility] HEMATOLOGY PROFILES HGB 8.7 g/dL 12.0 - 15.5 06/25 10:04 :00 Interpretive Data: Pqvwqa-rm-gbo e transgender patients on testosterone therapy should have results assessed using the male reference range. Wzkp-nv-roosm e transgender patients on hormone-modul ating therapy clinical judgment is advisedfor assessment. [facility] HEMATOLOGY PROFILES HCT 28.8 % 34.9 - 44.5 06/25 10:04 :00 Interpretive Data: Zwmpps-id-dve e transgender patients on testosterone therapy should have results assessed using the male reference range. Izgb-kv-qmuys e transgender patients on hormone-modul ating therapy clinical judgment is advisedfor assessment. [facility] HEMATOLOGY PROFILES MCV 89.2 fL 81.6 - 98.3 06/25 10:04 :00 [facility] HEMATOLOGY PROFILES MCH 26.9 pg 26.0 - 33.0 06/25 10:04 :00 [facility] HEMATOLOGY PROFILES MCHC 30.2 g/dL 32.0 - 36.0 06/25 10:04 :00 [facility] HEMATOLOGY PROFILES RDW CV 14.7 % 11.9 - 15.5 06/25 10:04 :00 [facility] HEMATOLOGY PROFILES RDW SD 47.1 fL 36.4 - 46.3 06/25 10:04 :00 [facility] HEMATOLOGY PROFILES PLT 162 x10(9)/L 150 - 450 06/25 10:04 :00 [facility] HEMATOLOGY PROFILES MPV 13.2 8.0 - 12.0 06/25 10:04 :00 [facility] GENERAL CHEMISTRY BUN 16 mg/dL 8 - 06/24 23:46 :00 [facility] GENERAL CHEMISTRY Calcium 10.2 mg/dL 8.3 - 10.6 06/24 23:46 :00 [facility] GENERAL CHEMISTRY Glucose Lvl 74 mg/dL 70 - 139 06/24 23:46 :00 [facility] GENERAL CHEMISTRY Chloride 108 mmol/L 98 - 107 06/24 23:46 :00 [facility] GENERAL CHEMISTRY Sodium 141 mmol/L 136 - 145 06/24 23:46 :00 [facility] GENERAL CHEMISTRY Potassium 4.0 mmol/L 3.5 - 5.1 06/24 23:46 :00 [facility] GENERAL CHEMISTRY CO2 26 mmol/L 20 - 06/24 23:46 :00 [facility] GENERAL CHEMISTRY Anion gap 11 mmol/L 0 - 20 06/24 23:46 :00 [facility] GENERAL CHEMISTRY Creatinine, standardized 1.0 mg/dL 0.5 - 1.0 06/24 23:46 :00 Interpretive Data: Dftklc-pg-gpp e transgender patients on testosterone therapy should have results assessed using the male reference range. Xifo-qw-oxbjy e transgender patients on hormone-modul ating therapy clinical judgment is advisedfor assessment. [facility] GENERAL CHEMISTRY Estimated GFR for Adults 56 mL/min/1.7 3m 06/24 23:46 :00 Interpretive Data: Changed to CKD-EPI 2020 on 2020. [facility] GENERAL CHEMISTRY Estimated GFR for peds Not calculated 06/24 23:46 :00 Interpretive Data: The estimated GFR was calculated using the Mely hicks Sumner equation (2009) . Reference: Pediatric GFR calculator at [employer] Website. [facility] Culture FungusX No fungus isolated at 2 weeks. at 378 Hours 06/24 19:31 :00 [facility] Gram Stain Rare polys No organisms seen 06/24 19:31 :00 [facility] Culture AnaerobicX Rare Normal skin robert consisting of: Staphyloco ccus epidermidi s 06/24 19:31 :00 [facility] AFB Smear No Acid-fast bacilli seen on smear. 06/24 19:31 :00 [facility] Culture AFB with Smear Culture negative to date for Mycobacter ia. 06/24 19:31 :00 [facility] Consultation Notes Results Value Date Source Op/Procedure [...] follow-up on pathology results 01/20/2025 Op/Procedure Note [id number] Aialfonso t Out-Room Date/Time: 15-AUG-2024 14:25 Primary [...] be discharged home after Dictated using a lithoplate maker device, variances and mistakes may occur 01/20/2025 [...] CLINIC Heart Rate 74 bpm 01/20/2025 18:11:58 [facility] SpO2 97 % 01/20/2025 18:11:56 [facility] Respiratory Rate 18 breaths/min 01/20/2025 18:11:51 [facility] SBP NIBP 152 mm[Hg] 01/20/2025 18:11:00 [facility] DBP NIBP 78 mm[Hg] 01/20/2025 18:11:00 [facility] SpO2 98 % 01/20/2025 18:01:26 [facility] Heart Rate 80 bpm 01/20/2025 18:01:25 [facility] Respiratory Rate 15 breaths/min 01/20/2025 18:01:19 [facility] Mean NIBP 104 mm[Hg] 01/20/2025 18:00:00 [facility] SBP NIBP 149 mm[Hg] 01/20/2025 18:00:00 [facility] DBP NIBP 93 mm[Hg] 01/20/2025 18:00:00 [facility] SpO2 100 % 01/20/2025 17:51:26 [facility] Heart Rate 73 bpm 01/20/2025 17:51:17 [facility] Respiratory Rate 8 breaths/min 01/20/2025 17:50:47 [facility] SBP NIBP 156 mm[Hg] 01/20/2025 17:50:00 [facility] DBP NIBP 92 mm[Hg] 01/20/2025 17:50:00 [facility] Mean NIBP 116 mm[Hg] 01/20/2025 17:50:00 [facility] SpO2 100 % 01/20/2025 17:44:55 [facility] Respiratory Rate 13 breaths/min 01/20/2025 17:44:51 [facility] Heart Rate 74 bpm 01/20/2025 17:44:49 [facility] SBP NIBP 13 mm[Hg] 01/20/2025 17:44:31 [facility] DBP NIBP 86 mm[Hg] 01/20/2025 17:44:31 [facility] Mean NIBP 108 mm[Hg] 01/20/2025 17:44:31 [facility] Temperature (Celsius) 36.5 Jennifer 01/20/2025 17:44:00 [facility] Temperature (Celsius) 36.9 Jennifer 01/20/2025 15:21:00 [facility] Height (cm) 152.4 cm 01/20/2025 14:50:00 [facility] BMI 29.1 kg/m2 01/20/2025 14:50:00 [facility] Weight (kg) 67.6 kg 01/20/2025 14:50:00 [facility] Heart Rate 108 bpm 11/19/2024 19:18:29 [facility] Heart Rate 82 bpm 08/15/2024 22:00:00 [facility] Respiratory Rate 14 08/15/2024 22:00:00 [facility] SpO2 95 % 08/15/2024 22:00:00 [facility] Heart Rate 82 bpm 08/15/2024 21:15:00 [facility] Respiratory Rate 14 08/15/2024 21:15:00 [facility] SpO2 95 % 08/15/2024 21:15:00 [facility] SBP NIBP 108 mm[Hg] 08/15/2024 21:15:00 [facility] DBP NIBP 59 mm[Hg] 08/15/2024 21:15:00 [facility] Heart Rate 73 bpm 08/15/2024 20:55:00 [facility] Respiratory Rate 15 08/15/2024 20:55:00 [facility] SBP NIBP 122 mm[Hg] 08/15/2024 20:55:00 [facility] DBP NIBP 54 mm[Hg] 08/15/2024 20:55:00 [facility] SpO2 96 % 08/15/2024 20:55:00 [facility] SpO2 95 % 08/15/2024 20:40:59 [facility] Heart Rate 70 bpm 08/15/2024 20:40:53 [facility] Mean NIBP 94 mm[Hg] 08/15/2024 20:40:00 [facility] SBP NIBP 109 mm[Hg] 08/15/2024 20:40:00 [facility] DBP NIBP 87 mm[Hg] 08/15/2024 20:40:00 [facility] Mean NIBP 90 mm[Hg] 08/15/2024 20:25:00 [facility] SBP NIBP 125 mm[Hg] 08/15/2024 20:25:00 [facility] DBP NIBP 52 mm[Hg] 08/15/2024 20:25:00 [facility] Respiratory Rate 14 08/15/2024 20:25:00 [facility] Mean NIBP 80 mm[Hg] 08/15/2024 20:15:00 [facility] Mean NIBP 96 mm[Hg] 08/15/2024 19:40:00 [facility] Temperature (Celsius) 36.0 Jennifer 08/15/2024 19:30:00 [facility] Weight (kg) 67.6 kg 08/15/2024 16:30:00 [facility] Temperature (Celsius) 36.0 Jennifer 08/15/2024 16:30:00 [facility] Heart Rate 76 bpm 08/13/2024 18:16:12 [facility] SpO2 98 % 07/07/2024 20:39:34 [facility] Heart Rate 82 bpm 07/07/2024 20:39:33 [facility] Respiratory Rate 16 breaths/min 07/07/2024 20:39:00 [facility] Mean NIBP 110 mm[Hg] 07/07/2024 20:30:00 [facility] SBP NIBP 123 mm[Hg] 07/07/2024 20:30:00 [facility] DBP NIBP 91 mm[Hg] 07/07/2024 20:30:00 [facility] SpO2 100 % 07/07/2024 20:21:33 [facility] Heart Rate 80 bpm 07/07/2024 20:21:31 [facility] Respiratory Rate 16 breaths/min 07/07/2024 20:21:00 [facility] Mean NIBP 69 mm[Hg] 07/07/2024 20:00:00 [facility] SBP NIBP 113 mm[Hg] 07/07/2024 20:00:00 [facility] DBP NIBP 47 mm[Hg] 07/07/2024 20:00:00 [facility] SpO2 99 % 07/07/2024 19:59:58 [facility] Heart Rate 81 bpm 07/07/2024 19:59:57 [facility] Respiratory Rate 17 breaths/min 07/07/2024 19:59:00 [facility] Mean NIBP 85 mm[Hg] 07/07/2024 19:30:00 [facility] SBP NIBP 108 mm[Hg] 07/07/2024 19:30:00 [facility] DBP NIBP 79 mm[Hg] 07/07/2024 19:30:00 [facility] SpO2 98 % 07/07/2024 19:29:57 [facility] Mean NIBP 83 mm[Hg] 07/07/2024 19:00:00 [facility] SBP NIBP 124 mm[Hg] 07/07/2024 19:00:00 [facility] DBP NIBP 68 mm[Hg] 07/07/2024 19:00:00 [facility] Respiratory Rate 16 breaths/min 07/07/2024 19:00:00 [facility] Heart Rate 90 bpm 07/07/2024 18:58:48 [facility] Weight (kg) 67.6 kg 07/07/2024 18:34:00 [facility] Temperature (Celsius) 36.7 Jennifer 07/07/2024 18:34:00 [facility] SBP NIBP 119 mm[Hg] 06/30/2024 12:40:58 [facility] DBP NIBP 64 mm[Hg] 06/30/2024 12:40:58 [facility] Mean NIBP 82 mm[Hg] 06/30/2024 12:40:58 [facility] Heart Rate 81 bpm 06/30/2024 12:40:58 [facility] SpO2 97 % 06/30/2024 12:40:58 [facility] Temperature (Celsius) 35.9 Jennifer 06/30/2024 12:40:58 [facility] Respiratory Rate 16 breaths/min 06/30/2024 12:00:00 [facility] SBP NIBP 135 mm[Hg] 06/30/2024 02:42:36 [facility] DBP NIBP 71 mm[Hg] 06/30/2024 02:42:36 [facility] Mean NIBP 93 mm[Hg] 06/30/2024 02:42:36 [facility] Heart Rate 91 bpm 06/30/2024 02:42:36 [facility] SpO2 96 % 06/30/2024 02:42:36 [facility] Temperature (Celsius) 36.7 Jennifer 06/30/2024 02:42:36 [facility] Respiratory Rate 16 breaths/min 06/30/2024 02:42:36 [facility] SBP NIBP 116 mm[Hg] 06/29/2024 20:53:51 [facility] DBP NIBP 71 mm[Hg] 06/29/2024 20:53:51 [facility] Mean NIBP 86 mm[Hg] 06/29/2024 20:53:51 [facility] Heart Rate 90 bpm 06/29/2024 20:53:51 [facility] SpO2 95 % 06/29/2024 20:53:51 [facility] Temperature (Celsius) 36.4 Jennifer 06/29/2024 20:53:51 [facility] Respiratory Rate 16 breaths/min 06/29/2024 20:53:51 [facility] Temperature (Celsius) 36.2 Jennifer 06/29/2024 13:00:00 [facility] Heart Rate 86 bpm 06/29/2024 13:00:00 [facility] SpO2 96 % 06/29/2024 13:00:00 [facility] Respiratory Rate 16 breaths/min 06/29/2024 13:00:00 [facility] SBP NIBP 121 mm[Hg] 06/29/2024 13:00:00 [facility] DBP NIBP 79 mm[Hg] 06/29/2024 13:00:00 [facility] Mean NIBP 85 mm[Hg] 06/29/2024 04:40:17 [facility] Weight (kg) 67.27 kg 06/24/2024 16:44:00 [facility] Height (cm) 152.4 cm 06/24/2024 16:44:00 [facility] BMI 29 kg/m2 06/24/2024 16:44:00 [facility] SpO2 98 % 06/20/2024 13:15:00 [facility] Heart Rate 89 bpm 06/20/2024 13:11:36 [facility] SpO2 98 % 06/20/2024 13:11:36 [facility] Temperature (Celsius) 35.7 Jennifer 06/20/2024 13:11:36 [facility] Encounters Location Location Details Encounter Type Encounter Number Reason For Visit Attending Provider ADM Date DC Date Status Source [facility] [id number] J Luis Rosas 06/20 13:07 :09 06/21 04:59 :59 [facility] Nurse Phone Call Clinic [id number] Brennen Mei 06/24 11:18 :13 06/25 04:59 :59 [facility] Inpatient [id number] J Luis Rosas 06/24 16:41 :56 06/30 18:55 :00 [facility] Emergency [id number] Meño Anthony 07/07 18:20 :49 07/07 20:45 :00 [facility] [id number] Murray Flynn 07/08 18:14 :53 07/09 04:59 :59 [facility] [id number] Murray Flynn 07/17 19:40 :09 07/18 04:59 :59 [facility] [id number] J Luis Rosas 08/01 15:17 :17 08/02 04:59 :59 [facility] [id number] J Luis Rosas 08/13 17:50 :47 08/14 04:59 :59 [facility] Nurse Phone Call Clinic [id number] Brennen Mei 08/15 11:49 :56 08/16 04:59 :59 [facility] Day Surgery [id number] J Luis Rosas 08/15 15:20 :13 08/16 04:59 :59 [facility] [id number] Murray Flynn 08/21 19:57 :05 08/22 04:59 :59 [facility] [id number] J Luis Rosas 09/03 18:51 :41 09/04 04:59 :59 [facility] Outpatient [id number] J Luis Rosas 11/19 18:56 :09 11/20 05:59 :59 [facility] [id number] J Luis Rosas 11/19 19:15 :05 11/20 05:59 :59 [facility] Non-Admit [id number] J Luis Rosas 01/19 21:00 :00 01/20 04:59 :59 [facility] Nurse Phone Call Clinic [id number] Brennen Mei 01/20 12:19 :38 01/21 04:59 :59 [facility] Day Surgery [id number] J Luis Rosas 01/20 14:23 :00 01/21 04:59 :59 [facility] [id number] J Luis Rosas 02/06 14:07 :55 02/07 04:59 :59 [facility] Outpatient [id number] J Luis Rosas 05/29 15:31 :09 05/30 04:59 :59 [facility] Procedures Procedure Code Date Perfomer Comments Source RIGHT LATERAL ANKLE SPLIT THICKNESS SKIN GRAFT FROM RIGHT THIGH 08/15/2024 05:00:00 [facility] Right peroneus brevis rotational flap, Irrigation and sharp excisional debridement of right draining lateral ankle wound 06/24/2024 05:00:00 [facility] Removal of kidney stone [facility] Uterine ablation [facility] Right Knee replacement [facility] [place] [facility] Plan of Care Plan of Care Date Source No data available for this section 05/30/2025 [facility] Social History Social History Date Source No data available for this section 05/30/2025 [facility] No data available for this section 02/07/2025 [facility] No data available for this section 01/21/2025 [facility] No data available for this section 01/20/2025 [facility] No data available for this section 11/20/2024 [facility] No data available for this section 09/04/2024 [...] No data available for this section 07/07/2024 [facility] No data available for this section 06/30/2024 [facility] No data available for this section 06/25/2024 [facility] No data available for this section 06/21/2024 [facility]
--- OUTSIDE RECORDS SUMMARY | 2025-06-18 11:33 | XMS_ITS ---
Author Organization [facility] Care Team Providers Care Moss Gatherer Name Role Phone Harjinder Craig Unavailable Unavailable Arabella Franklin Unavailable Unavailable Bryan Ayon Unavailable Unavailable China Luz Unavailable Unavailable Baudilio Martin Unavailable Unavailable Allergies and adverse reactions Code CodeSystem Substance Reaction Severity StartDate Concern Status 09386 RXNORM Vancomycin Skin reaction - finding (code- 170181882, SNOMED CT) Moderate 01/04/2023 active 7052 RXNORM Morphine Unknown 12/13/2022 active 3640 RXNORM Doxycycline Severe 12/24/2022 active 2180 RXNORM ceFAZolin Itching of skin (code- 194252370, SNOMED CT) Severe 12/22/2022 active Care Team Name Role Address Phone Organization Dates Bryan Ayon PCP [address] [facility] [facility], [place], [address], [place] (Office): : : : [facility] 01/04/2023 - 02/01/2023 Harjinder Craig [address] [place] [address], [address], [facility] (Office): : [facility] 01/04/2023 - 02/01/2023 Arabella Perez Franklin [address], [place], [address], [facility] (Office): : [facility] 01/04/2023 - 02/01/2023 China Luz [address], [place], [address], [facility] (Office): : : [facility] 01/04/2023 - 02/01/2023 [facility] [address] [facility], [place], [address], [facility] (Office): : : : [facility] 01/04/2023 - 02/01/2023 Immunizations Immunization Status Vaccine Details Vaccine Code CodeSystem Date Notes Influenza completed Influenza, high-dose, split virus, quadrivalent, injectable, preservative free lotNumber: [id number] expiry: 04/22/2023 Mfg: Seqilus Given 0.5 ml Left Deltoid intramuscularly 197 CVX created date: 12/21/2022 consent date: 12/21/2022 administer ed date: 12/21/2022 TB 1 Step Mantoux (PPD) completed tuberculin skin test; unspecified formulation lotNumber: [id number] expiry: 04/05/2025 Mfg: san0fi pasteur Given 0.1 ml Left Forearm intradermally 98 CVX created date: 12/14/2022 consent date: 12/14/2022 administer ed date: 12/14/2022 Chest X-Ray for TB completed no vaccine administered 998 CVX created date: 12/17/2022 administer ed date: 12/13/2022 no evidence of TB Pneumovax (PPSV23) normal pneumococcal polysaccharide vaccine, 23 valent 33 CVX created date: 12/20/2022 consent date: 12/20/2022 [id number] Rapid test completed SARS-COV-2 (COVID-19) vaccine, vector [...] Status 1 ACUTE KIDNEY FAILURE, UNSPECIFIED 01/04/[address] active 2 ADVERSE EFFECT OF OTHER DRUGS, MEDICAMENTS AND BIOLOGICAL SUBSTANCES, SUBSEQUENT ENCOUNTER 01/04/[address] active 3 CHRONIC KIDNEY DISEASE, STAGE 2 (MILD) 01/04/[address] active 4 GENERALIZED SKIN ERUPTION DUE TO DRUGS AND MEDICAMENTS TAKEN INTERNALLY 01/04/[address] active 5 UNSTEADINESS ON FEET 01/04/[address] active 6 ANXIETY DISORDER, UNSPECIFIED 12/13/[address] active 7 CHRONIC MIGRAINE WITHOUT AURA, NOT INTRACTABLE, WITHOUT STATUS MIGRAINOSUS 12/13/[address] active 8 DEPRESSION, UNSPECIFIED 12/13/[address] active 9 ENCOUNTER FOR OTHER ORTHOPEDIC AFTERCARE 12/13/[address] active 10 ESSENTIAL (PRIMARY) HYPERTENSION 12/13/[address] active 11 GASTRO-ESOPHAGEAL REFLUX DISEASE WITHOUT ESOPHAGITIS 12/13/[address] active 12 HYPERLIPIDEMIA, UNSPECIFIED 12/13/[address] active 13 IRON DEFICIENCY ANEMIA, UNSPECIFIED 12/13/[address] active 14 METHICILLIN SUSCEPTIBLE STAPHYLOCOCCUS AUREUS INFECTION THE CAUSE OF DISEASES CLASSIFIED ELSEWHERE 12/13/[address] active 15 MUSCLE WEAKNESS (GENERALIZED) 12/13/[address] active 16 OTHER ABNORMALITIES OF GAIT AND MOBILITY 12/13/2022 01/02/[address] completed 17 OTHER ACUTE OSTEOMYELITIS, RIGHT ANKLE AND FOOT 12/13/[address] active 18 OTHER INSOMNIA 12/13/[address] ac tive 19 OTHER IRRITABLE BOWEL SYNDROME 12/13/[address] active 20 OTHER LACK OF COORDINATION 12/13/[address] active 21 POLYARTHRITIS, UNSPECIFIED 12/13/[address] active 22 SEPSIS, UNSPECIFIED ORGANISM 12/13/[address] active 23 STAPHYLOCOCCAL ARTHRITIS, RIGHT ANKLE AND FOOT 12/13/[address] active Reason for Referral No Reasons for Referral Entered Social History Social History Observation Description Start Date End Date Code Code System Current Smoking Status Tobacco smoking consumption unknown 459667466 SNOMED CT Sex Assigned At Female 1940 14969-9 [facility] Gender Identity Vital Signs Code Code System Vitals Name Values and Units Timing Information 9279-1 [facility] Respiratory Rate Value=20.0 Units=/m in 02/01/2023 96117-3 [facility] O2 % BldC Oximetry Value=98.0 Units= % 02/01/2023 8867-4 [facility] Heart rate Bvioh=434.0 Units=/min 02/01/2023 8310-5 [facility] Body Temperature Value=97.3 Units= F 02/01/2023 8462-4 [facility] Blood Pressure-Diastolic Value=81 Un its=mmHg 02/01/2023 8480-6 [facility] Blood Pressure-Systolic Fjmvk=219 Un its=mmHg 02/01/2023 2339-0 [facility] Blood Sugar Value=20.0 Units=mg/dL 02/01/2023 80267-1 [facility] Pain Level Value=0.0 02/01/2023 35018-6 [facility] Weight Eqpov=198.6 Units=Lbs 8302-2 [facility] Height Value=60.0 Units=Inches 12/18/2022
--- OUTSIDE RECORDS SUMMARY | 2025-06-18 11:33 | XMS_ITS | Clinical Summary ---
Author Organization [facility] [place] Address [address] [place] [address] Care Team Providers Care Special Educator Name Role Phone Wali Aguilar MD Unavailable Chivo Lee MD Primary Care Provider [phone] Source Comments [facility],non-owned Affiliates and Associated Physician Practices is amultiple site organization consisting of ambulatory clinics and hospital sitesin [place], [place], [place] and [place]. This disclosure is being madepursuant to the Care Everywhere program and may not contain all information available regarding this patient. Last updated 18.[facility] [place] Allergies Active Allergy Reactions Criticality Noted Date [...] fluticasone propionate (FLONASE) 50 MCG/ACT nasal spray [place] 2 Sprays into each nostril once daily [...] this topic Medical Devices Implanted Type Area Carton Inspector Device Identifier Shelf Expiration Date Model / Serial / Lot Terell Bone Damariscotta Hv Implanted:Qty: 1 on 01/14/2015 by Wali Aguilar MD at [facility] Right: Knee [employer] 09/03/2016 [id number] / / [id number] Ins Kn Vangurd Fem Cocr R-Intlok 65.0mm Implanted:Qty: 1 on 01/14/2015 by Wali Aguilar MD at [facility] Right: [employer]nee [employer] 12/31/2024 [id number] / / [id number] Butn Pat Arcom Wire Polyeth Sm 31 X 8mm Implanted:Qty: 1 on 01/14/2015 by Wali Aguilar MD at [facility] Right: [employer]nee [employer] 12/04/2019 [id number] / / [id number] Ty Tibial I Beam Fix Bar 71mm Implanted:Qty: 1 on 01/14/2015 by Wali Aguilar MD at [facility] Right: [employer]nee [employer] 06/03/2024 [id number] / / [id number] Brdg Tib Cici Stbl Implanted:Qty: 1 on 01/14/2015 by Wali Aguilar MD at [facility] Right: Knee [employer] 11/03/2019 [id number] / / [id number] Insurance MEDICARE COMMERCIAL GENERIC * Guarantor: HOLLY HANEY Account Type Relation to Patient Date of Phone Billing Address Personal/Family [address] [address] MEDICARE MEDICARE SUPPLEMENT PAYOR GENERIC * Guarantor: HOLLY HANEY Account Type Relation to Patient Date of Phone Billing Address Personal/Family [address] [address] MEDICARE MEDICARE SUPPLEMENT PAYOR GENERIC * Guarantor: HOLLY HANEY Account Type Relation to Patient Date of Phone Billing Address Personal/Family [address] [address] MEDICARE MEDICARE SUPPLEMENT PAYOR GENERIC Advance Directives * Full Code (Latest Code Status on File) Date Activated Date Inactivated Comments 01/14/2015 10:38 AM 01/17/2015 2:09 PM Care Teams Special Educator Relationship Specialty [place] [id number] [place] [id number] PCP - General Internal Medicine 12/08/14 [place] [address] [address] Orthopedic Surgery 12/08/14
--- OUTSIDE RECORDS SUMMARY | 2025-06-18 11:33 | XMS_ITS | Clinical Summary ---
Author Organization [facility] [address] [place] [id number] Care Team Providers Care Yarn Man Name Role Phone Hollis Perez MD Primary Care Provider [phone] Tr Li MD Unavailable Allergies Active Allergy [...] mouth 3 (three) times a day Active oak-C7-toe33-zi wz-zty-kmvj-bor 600 mg calcium- 800 unit-50 mg tablet Take 1 tablet by mouth daily Active vit 34-dogx-xiugj-d sadler 29 mg iron-1 mg -250 mg [...] mouth daily Active calcium carb/mag oxide/Cu/zinc (calcium-magnes cpn-eomfct-tpdh ) tablet Take 1 tablet/capsule by mouth [...] part of management by her physicians in [facility] Physical examination identifies surgical site intact, trace [...] findings are inconclusive for swelling or bruising, kaoi-fe-wmukleqy pain elicited on palpation; slight range motion [...] often do you attend chur ch or lutheran services? 1 to 4 times per year 05/14/2023 Do you belong to any clubs o r organizations such as amish groups, unions, fraternal or athletic groups, or [...] place to sleep or slept in a snf (including now)? No 05/14/2023 Personal Safety Answer [...] 09/10/2017, 09/08/2017 Medical Devices Implanted Type Area Research Assoc Device Identifier Shelf Expiration Date Model / Serial / Lot Depuy Synthes Spine [id number] Viper Prime 6mm 45mm Polyaxial Extend Tab Spine Screw Bone - [id number] Implanted:Qty: 4 on 04/02/2019 by Con Hernandez MD at [facility] N/A: Spine Lumbar Depuy Synthes Spine [id number] / / Depuy Spine [id number] Viper 2 35mm Lordotic Prebent Nikita Spinal Titanium Nonsterile Mis - [id number] Implanted:Qty: 2 on 04/02/2019 by Con Hernandez MD at [facility] N/A: Spine Lumbar Depuy Spine [id number] / / Depuy Spine [id number] 5.5mm 1 Inner Spine Screw Set Titanium Nonsterile Viper - [id number] Implanted:Qty: 4 on 04/02/2019 by Con Hernandez MD at [facility] N/A: Spine Lumbar Depuy Spine [id number] / / Depuy Spine [id number] Concorde [id number] Radiopaque 5d Lordotic Bullet Nose Cage Spinal Latex Free - [id number] Implanted:Qty: 2 on 04/02/2019 by Con Hernandez MD at [facility] N/A: Spine Lumbar Depuy Spine [id number] / / Insurance MEDICARE [facility] Address: [address] [address] COMMERCIAL GENERIC MEDICARE COMMERCIAL GENERIC MEDICARE Advance Directives For more information, please contact: [phone] * LIMITED - No CPR (Latest Code [...] 7:29 PM 04/04/2019 7:50 PM Care Teams Yarn Man Relationship Specialty Start Date End Date Hollis Perez MD PCP - General Internal Medicine 02/26/19 Tr Li MD [address] [facility] [place] [address] Consulting Physician Pain Management 09/20/23
[2025-06-18 12:10] LABS: Alveolar/Arterial O2 Gradient 58.1 mmHg; Fractional Inspired Oxygen 21 %; HCO3 ABG 19.9 mEq/l (22.0-26.0); Oxygen Content ABG 18.7 %vol (16.0-22.0); Oxygen Saturation ABG 93.2 % (95.0-100.0); PCO2 ABG 26.6 mmHg (35.0-45.0); PO2 ABG 59.8 mmHg (80.0-100.0); PO2 FiO2 Ratio Arterial Blood 2.85 %
[2025-06-18 12:13] LABS: Modified Allen's Test Pass; Site Drawn RIGHT RADIAL
[2025-06-18 12:43] LABS: Hematocrit 43.2 % (37.0-47.0); Hemoglobin 13.4 g/dL (12.0-15.0); Immature Granulocyte Percent A 0.4 % (0-0.5); Immature Platelet Fraction Pct 15.7 % (0.9-11.2); Lymphocytes Absolute Auto 2.51 K/mm3 (0.9-3.2); Mean Corpuscular HGB Conc 31.0 g/dl (32-36); Mean Corpuscular Hemoglobin 28.5 pg (26-34); Mean Corpuscular Volume 91.7 fl (80-100); Nucleated Red Blood Cells Absolute Auto 0.000 K/mm3 (0.0-0.012); Nucleated Red Blood Cells Perc 0.0 % (0.0-0.2); Platelet Count Result 154 k/mm3 (150-375); Red Blood Count 4.71 M/mm3 (4.2-5.4); White Blood Count 10.7 K/mm3 (4.5-10.0)
[2025-06-18 12:55] LABS: INR 1.0; Partial Thromboplastin Time 27.2 Seconds (22.3-36.8); Prothrombin Time 13.5 Seconds (11.1-14.7)
[2025-06-18 12:58] LABS: Lipase 85 U/L (23-300); Magnesium 2.1 mg/dL (1.6-2.3)
[2025-06-18 13:08] LABS: Alanine Aminotransferase 13 U/L (6-35); Albumin Level 4.0 g/dL (3.5-5.1); Alkaline Phosphatase 142 U/L (38-126); Anion Gap 10 mmol/L (4-12); Aspartate Amino Transferase 32 U/L (14-36); Bilirubin,Total 0.5 mg/dL (0.2-1.3); Blood Urea Nitrogen 29 mg/dL (7-17); Calcium 10.7 mg/dL (8.4-10.2); Carbon Dioxide 20 mmol/L (22-30); Chloride 104 mmol/L (98-107); Estimated CRCL calculation 19 ml/min; Estimated Glomerular Filt Rate 28; Glucose 81 mg/dL (65-110); Potassium 4.2 mmol/L (3.4-5.0); Sodium 134 mmol/L (137-145); Total Protein 6.8 g/dL (6.3-8.2)
[2025-06-18 13:14] LABS: NT Pro B Type Natriuretic Pept 443 pg/mL (19.9-100); Troponin I < 0.012 ng/mL (0.000-0.034)
[2025-06-18] MEDS: SODIUM CHLORIDE 0.9% IV 1,000 ML 999 ML IV CONT (13:20)
--- NOTE | 2025-06-18 13:42 | ED_ITS ---
HPI - General Adult General Chief complaint: Shortness of Breath/Dyspnea Stated complaint: sob, weak Time Seen by Provider: 06/18/25 10:59 History of Present Illness HPI narrative: This is an 85-year-old female presenting with shortness of breath. Patient states that over the last 2 weeks she is becoming progressively more short of breath. She has significant dyspnea on exertion and cannot walk more than 10 ft without becoming winded. She denies fevers, productive cough, chest pain, abdominal pain urinary symptoms. She denies nausea vomiting or diarrhea. She denies hematochezia or melena. Related Data Home Medications ?Medication ?Instructions ?Recorded ?Confirmed ?Last Taken ?Type diclofenac sodium 100 mg 100 mg PO Q12H 07/15/20 04/03/24 03/28/24 History tablet,extended release 24 hr duloxetine 30 mg capsule,delayed 30 mg PO 07/15/20 04/03/24 03/28/24 History release duloxetine 60 mg capsule,delayed 60 mg PO QAM 07/15/20 04/03/24 03/28/24 History release lisinopril 10 mg tablet 5 mg PO QAM 07/15/20 04/03/24 03/28/24 History atorvastatin 40 mg tablet 40 mg PO DAILY 03/29/24 04/03/24 03/28/24 History bupropion HCl 150 mg tablet,12 hr 150 mg PO Q12H 03/29/24 04/03/24 03/28/24 History sustained-release cholecalciferol (vitamin D3) 100 100 mcg PO DAILY 03/29/24 04/03/24 03/28/24 History mcg (4,000 unit) capsule diphenhydramine 25 1 tablet PO HS 03/29/24 04/03/24 03/28/24 History mg-acetaminophen 500 mg tablet (Tylenol PM Extra Strength) [id number] 1 mg 1 tablet PO DAILY 03/29/24 04/03/24 03/28/24 History tablet levofloxacin 750 mg tablet 750 mg PO DIRECTED 04/03/24 04/03/24 Unknown History meloxicam 15 mg tablet 15 mg PO DAILY 04/03/24 04/03/24 Unknown History naproxen sodium 220 mg capsule 440 mg PO QAM 04/03/24 04/03/24 Unknown History (Aleve) Allergies Allergy/AdvReac Type Severity Reaction Status Date / Time amoxicillin (From Augmentin) Allergy Intermediate Rash Verified 06/18/25 11:02 ceftriaxone (From Rocephin) Allergy Intermediate Itching, Verified 06/18/25 11:02 RASH clavulanic acid (From Allergy Intermediate Rash Verified 06/18/25 11:02 Augmentin) vancomycin Allergy Rash, RED Verified 06/18/25 11:02 FACE, BURNING SCALP morphine AdvReac Nausea and Verified 06/18/25 11:02 Vomiting PMFSH Past Medical History Medical History Depression with anxiety Kidney stones GERD (gastroesophageal reflux disease) Hyperlipidemia Hypertension Surgical History Surgical History History of back surgery H/O laparoscopy History of total knee arthroplasty Family History Family History Sibling Acute myocardial infarction Sibling No problems noted. Mother Breast cancer Bone cancer Father Alcoholic Social History Social History Years smoked: 10 Smoking status: Never smoker Alcohol intake: current Drinks per week: 2 Substance use: never Do You Feel Safe in your Home?: Yes Lack of Transportation: No Lack of Food: Never True Current Housing: I Have Housing Concerned About Future Housing: No Difficulty Paying Gas/Electric Bills: No Difficulty Paying for Meds: No Currently Unemployed: No Education: High School Diploma/GED Difficulty w/ Childcare or Family Care: No Living arrangements: alone Occupation/Education: retired Gender identity (if verbalized by the patient): Female Spiritual care concerns: No Exam 2 Narrative: APPEARANCE: No apparent distress. Head: atraumatic. EYES: EOMI, NOSE: Atraumatic NECK: Trachea midline RESPIRATORY: No increased rate of breathing clear to auscultation CARDIOVASCULAR: RRR, no peripheral edema ABDOMINAL: Non-distended soft nontender MUSCULOSKELETAl: No obvious deformities NEURO: Alert. Moving 4/4 extremities SKIN:: Warm, dry. Normal color PSYCHIATRIC: Normal affect Course Vital Signs Vital signs: Vital Signs Temperature 97.5 F L 06/18/25 11:04 Pulse Rate 92 06/18/25 11:04 Respiratory Rate 13 06/18/25 11:04 Blood Pressure 101/77 06/18/25 11:04 Pulse Oximetry 99 06/18/25 11:04 Temperature 97.5 F L 06/18/25 11:04 Pulse Rate 79 06/18/25 15:16 Respiratory Rate 18 06/18/25 15:16 Blood Pressure 111/62 06/18/25 15:16 Pulse Oximetry 97 06/18/25 15:16 Medical Decision Making MDM Narrative Medical decision making narrative: -Course: 85-year-old female presenting with dyspnea on exertion. Patient does not have any objective signs of dyspnea. Lungs are clear. Overall she is well- appearing. Broad workup obtained. CBC normal limits. Slight elevation creatinine from 1 year ago. Urine not indicative infection but was very concentrated. Viral swabs negative. D-dimer was elevated but CT PE did not find any acute cardiopulmonary process. Patient was re-evaluated after fluid resuscitation is feeling much better. She was able to ambulate around our emergency department without becoming winded or having a drop in her saturation. Symptoms likely due to dehydration. She is comfortable going home at this time. She will follow-up with her primary care physician for further management. -DDX includes but is not limited to: Pneumonia, PE, ACS, dehydration, viral syndrome, UTI Vital Signs Vital Signs: Vital Signs Temperature 97.5 F L 06/18/25 11:04 Pulse Rate 92 06/18/25 11:04 Respiratory Rate 13 06/18/25 11:04 Blood Pressure 101/77 06/18/25 11:04 Pulse Oximetry 99 06/18/25 11:04 Temperature 97.5 F L 06/18/25 11:04 Pulse Rate 79 06/18/25 15:16 Respiratory Rate 18 06/18/25 15:16 Blood Pressure 111/62 06/18/25 15:16 Pulse Oximetry 97 06/18/25 15:16 Lab Data 06/18/25 12:32 06/18/25 12:34 Labs: Lab Results 06/18/25 06/18/25 06/18/25 Range/Units 12:32 12:34 13:05 WBC 10.7 H (4.5-10.0) K/mm3 RBC 4.71 (4.2-5.4) M/mm3 Hgb 13.4 (12.0-15.0) g/dL Hct 43.2 (37.0-47.0) % MCV 91.7 (80-100) fl MCH 28.5 (26-34) pg MCHC 31.0 L (32-36) g/dl RDW 15.9 H (11.5-14.5) % Plt Count 154 (150-375) k/mm3 MPV 13.5 H (7.4-10.4) fl Immature Gran % (Auto) 0.4 (0-0.5) % Neut % (Auto) 61.7 (45.5-73.1) % Lymph % (Auto) 23.5 (18.3-44.2) % [place] % (Auto) 8.2 (2.6-8.5) % Eos % (Auto) 5.4 H (0-4.4) % Baso % (Auto) 0.8 (0.2-1.2) % Lymph # (Auto) 2.51 (0.9-3.2) K/mm3 [place] # (Auto) 0.9 H (0.1-0.6) K/mm3 Eos # (Auto) 0.6 H (0-0.3) K/mm3 Baso # (Auto) 0.1 (0.0-0.1) K/mm3 Abs Immat Gran (auto) 0.04 H (0.00-0.031) K/mm3 Absolute Neuts (auto) 6.6 (1.3-6.7) K/mm3 Absolute Nucleated RBC 0.000 (0.0-0.012) K/mm3 Nucleated RBC % 0.0 (0.0-0.2) % % Immature Plt Fraction 15.7 H (0.9-11.2) % PT 13.5 (11.1-14.7) Seconds INR 1.0 APTT 27.2 (22.3-36.8) Seconds D-Dimer 0.91 H (<0.48) ug/mL Sodium 134 L (137-145) mmol/L Potassium 4.2 (3.4-5.0) mmol/L Chloride 104 (98-107) mmol/L Carbon Dioxide 20 L (22-30) mmol/L Anion Gap 10 (4-12) mmol/L BUN 29 H (7-17) mg/dL Creatinine 1.73 H (0.7-1.0) mg/dL Estim Creat Clear Calc 19 ml/min Estimated GFR 28 L (59 - ) Glucose 81 (65-110) mg/dL Lactic Acid 1.1 (0.7-2.0) mmol/L Calcium 10.7 H (8.4-10.2) mg/dL Phosphorus 2.6 (2.5-4.5) mg/dL Magnesium 2.1 (1.6-2.3) mg/dL Total Bilirubin 0.5 (0.2-1.3) mg/dL AST 32 (14-36) U/L ALT 13 (6-35) U/L Alkaline Phosphatase 142 H (38-126) U/L Troponin I < 0.012 (0.000-0.034) ng/mL NT-Pro-B Natriuret Pep 443 H (19.9-100) pg/mL Total Protein 6.8 (6.3-8.2) g/dL Albumin 4.0 (3.5-5.1) g/dL Lipase 85 (23-300) U/L Urine Color (Yellow) Urine Appearance (Clear) Urine pH (5.0-9.0) Ur Specific [place] (1.001-1.035) Urine Protein (Negative) mg/dL Urine Glucose (UA) (Negative) mg/dL Urine Ketones (Negative) mg/dL Ur Blood (Man) (Negative) Urine Nitrate (Negative) Urine Bilirubin (Negative) Urine Urobilinogen (<2.0) mg/dL Leukocyte Esterase Rfl (Negative) JASON/UL Urine RBC (0-2) /hpf Urine WBC (0-3) /hpf Ur Squamous Epith Cells (Few) /hpf Urine Bacteria /hpf Urine Casts Influenza A (RT-PCR) (Negative) Influenza B (RT-PCR) (Negative) RSV (RT-PCR) (Negative) SARS-CoV-2 RNA (RT-PCR) (Negative) 06/18/25 06/18/25 06/18/25 Range/Units 13:34 15:52 16:04 WBC (4.5-10.0) K/mm3 RBC (4.2-5.4) M/mm3 Hgb (12.0-15.0) g/dL Hct (37.0-47.0) % MCV (80-100) fl MCH (26-34) pg MCHC (32-36) g/dl RDW (11.5-14.5) % Plt Count (150-375) k/mm3 MPV (7.4-10.4) fl Immature Gran % (Auto) (0-0.5) % Neut % (Auto) (45.5-73.1) % Lymph % (Auto) (18.3-44.2) % [place] % (Auto) (2.6-8.5) % Eos % (Auto) (0-4.4) % Baso % (Auto) (0.2-1.2) % Lymph # (Auto) (0.9-3.2) K/mm3 [place] # (Auto) (0.1-0.6) K/mm3 Eos # (Auto) (0-0.3) K/mm3 Baso # (Auto) (0.0-0.1) K/mm3 Abs Immat Gran (auto) (0.00-0.031) K/mm3 Absolute Neuts (auto) (1.3-6.7) K/mm3 Absolute Nucleated RBC (0.0-0.012) K/mm3 Nucleated RBC % (0.0-0.2) % % Immature Plt Fraction (0.9-11.2) % PT (11.1-14.7) Seconds INR APTT (22.3-36.8) Seconds D-Dimer (<0.48) ug/mL Sodium (137-145) mmol/L Potassium (3.4-5.0) mmol/L Chloride (98-107) mmol/L Carbon Dioxide (22-30) mmol/L Anion Gap (4-12) mmol/L BUN (7-17) mg/dL Creatinine (0.7-1.0) mg/dL Estim Creat Clear Calc ml/min Estimated GFR (59 - ) Glucose (65-110) mg/dL Lactic Acid (0.7-2.0) mmol/L Calcium (8.4-10.2) mg/dL Phosphorus (2.5-4.5) mg/dL Magnesium (1.6-2.3) mg/dL Total Bilirubin (0.2-1.3) mg/dL AST (14-36) U/L ALT (6-35) U/L Alkaline Phosphatase (38-126) U/L Troponin I < 0.012 (0.000-0.034) ng/mL NT-Pro-B Natriuret Pep (19.9-100) pg/mL Total Protein (6.3-8.2) g/dL Albumin (3.5-5.1) g/dL Lipase (23-300) U/L Urine Color Yellow (Yellow) Urine Appearance Clear (Clear) Urine pH 5.0 (5.0-9.0) Ur Specific [place] > 1.045 H (1.001-1.035) Urine Protein Trace (Negative) mg/dL Urine Glucose (UA) Negative (Negative) mg/dL Urine Ketones 2+ H (Negative) mg/dL Ur Blood (Man) Negative (Negative) Urine Nitrate Negative (Negative) Urine Bilirubin Negative (Negative) Urine Urobilinogen 1.0 (<2.0) mg/dL Leukocyte Esterase Rfl Negative (Negative) JASON/UL Urine RBC 0-2 (0-2) /hpf Urine WBC 0-5 (0-3) /hpf Ur Squamous Epith Cells None seen (Few) /hpf Urine Bacteria None seen /hpf Urine Casts 0-2 Influenza A (RT-PCR) Negative (Negative) Influenza B (RT-PCR) Negative (Negative) RSV (RT-PCR) Negative (Negative) SARS-CoV-2 RNA (RT-PCR) Negative (Negative) ABG Data ABG results: 06/18/25 11:40 Puncture Site Right radial ABG pH 7.492 H ABG pCO2 26.6 L ABG pO2 59.8 L ABG PO2/FiO2 Ratio 2.85 ABG HCO3 19.9 L ABG O2 Saturation 93.2 L ABG O2 Content 18.7 ABG Base Excess -1.8 A-a Gradient 58.1 Oxyhemoglobin 91.0 Total Hemoglobin 14.6 O2 Delivery Device Not Reportable O2 Liters/Min Not Reportable FiO2 21 Discharge Plan Discharge Clinical Impression: Dehydration, Acute kidney injury Patient Disposition: Home Condition: Stable Instructions: Antibiotic Form, Dehydration (DC) Additional Instructions: You were seen emergency department for dyspnea on exertion. You were found to be very dehydrated. Please make sure you are drinking plenty of fluids on a daily basis. Please follow-up with your primary care physician in the next 2-3 days to ensure you are still doing well. If you develop fevers, weakness or feel your condition is getting worse please return to the ED for re-evaluation. Patient Language: [place] Prescriptions: No Action diclofenac sodium 100 mg Tablet Extended Release 24 Hr 100 mg PO Q12H lisinopril 10 mg Tablet 5 mg PO QAM duloxetine 30 mg Capsule,Delayed Release(Dr/Ec) 30 mg PO HS duloxetine 60 mg Capsule,Delayed Release(Dr/Ec) 60 mg PO QAM cyclobenzaprine 10 mg tablet 10 mg PO BID PRN (Reason: muscle spasm) Qty: 14 0RF atorvastatin 40 mg tablet 40 mg PO DAILY bupropion HCl 150 mg tablet sustained-release 12 hr 150 mg PO Q12H [id number] 1 mg Tablet 1 tablet PO DAILY Tylenol PM Extra Strength 25-500 mg Tablet 1 tablet PO HS cholecalciferol (vitamin D3) 100 mcg (4,000 unit) Capsule 100 mcg PO DAILY levofloxacin 750 mg tablet 750 mg PO DIRECTED Rx Instructions: TAKE 1 04/02/24 AND 04/04/24 naproxen sodium [Aleve] 220 mg Capsule 440 mg PO QAM meloxicam 15 mg tablet 15 mg PO DAILY omeprazole 40 mg capsule,delayed release(DR/EC) 40 mg PO Q12H Qty: 60 11RF Follow-up/Referrals: Chris,MD Hollis [Primary Care Provider] - 3 Days (Dehydration )
[2025-06-18 14:18] LABS: Influenza A QL RT-PCR Negative (Negative); Influenza B QL RT-PCR Negative (Negative); RSV RNA, RT-PCR Negative (Negative); SARS-CoV-2 RNA PCR Negative (Negative)
--- NOTE | 2025-06-18 15:22 | ECG_ITS ---
Test Date: 2025-06-18 15:24:18 Measurements Intervals [place] Rate: 84 P: 27 IA: 165 QRS: -25 QRSD: 104 T: 26 QT: 382 QTc: 452 Interpretive Statements SINUS RHYTHM DELAYED PRECORDIAL R/S TRANSITION BORDERLINE ECG Compared to ECG 06/18/2025 11:10:50 No significant changes Electronically Signed On 06-18-2025 16:03:46 CDT by Tani De Jesus D.O.
[2025-06-18 16:21] LABS: Troponin I < 0.012 ng/mL (0.000-0.034)
[2025-06-18 16:24] LABS: Add Urine Microscopic? YES; Appearance Urine Clear (Clear); Glucose Urine UA Negative (Negative); Leukocyte Esterase Ur Negative LEU/UL (Negative); Nitrate Urine Negative (Negative); Non Pathogenic Casts 0-2; Specific Grav Ur > 1.045 (1.001-1.035)
== END 2025-06-18 17:40 | disposition home or self-care (01) ==
PROVIDERS: Emergency Provider Emergency Medicine; PCP Internal Medicine
DX: N17.9 Acute kidney failure, unspecified (principal); E86.0 Dehydration; Z20.822 Contact with and (suspected) exposure to COVID-19; I11.0 Hypertensive heart disease with heart failure; E78.5 Hyperlipidemia, unspecified; K21.9 Gastro-esophageal reflux disease without esophagitis; F41.8 Other specified anxiety disorders; Z96.659 Presence of unspecified artificial knee joint; Z87.442 Personal history of urinary calculi; Z79.899 Other long term (current) drug therapy; R94.31 Abnormal electrocardiogram [ECG] [EKG]
CPT/HCPCS: 36415; 36600; 71046; 71275; 80053; 81001; 82805; 83605; 83690; 83735; 83880; 84100; 84484; 85018; 85025; 85055; 85380; 85610; 85730; 87040; 87637; 93005; 96360; 99284; J7030; Q9967